=== PATIENT | male | born 1940 | race Caucasian/White ===

== ENCOUNTER 2020-01-31 10:45 | Inpatient (IN) | payer MEDICARE, OTHER, SELFPAY ==
[2020-01-31] VITALS (38 sets, daily range): BP systolic 110–162; BP diastolic 54–89; PULSE 55–100; RESP 13–26; TEMP 36.4–37.6; O2SAT 88–100; BMI 27.1
--- NOTE | 2020-01-31 11:27 | XRR_ITS ---
PROCEDURE INFORMATION: Exam: XR Chest, 1 View Exam date and time: 01/31/2020 12:39 PM Age: 79 years old Clinical indication: Dyspnea and fever; Additional info: Covid TECHNIQUE: Imaging protocol: XR of the chest Views: 1 view. COMPARISON: No relevant prior studies available. FINDINGS: Lungs: Unremarkable. No consolidation. Pleural space: Unremarkable. No pleural effusion. No pneumothorax. Heart/Mediastinum: Clips and sutures are present from cardiovascular surgery. Heart may be normal for the AP projection. Bones/joints: Unremarkable. XR/XR chest 1V portable [id number] IMPRESSION: No acute abnormalities are seen in the chest.
--- NOTE | 2020-01-31 11:28 | ECG_ITS ---
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 Measurements Intervals [place] Rate: 85 P: 55 RI: 205 QRS: 44 QRSD: 108 T: 58 QT: 377 QTc: 449 Interpretive Statements SINUS RHYTHM LEFT ATRIAL ENLARGEMENT [-0.15mV P WAVE IN V1/V2] MODERATE T-WAVE ABNORMALITY, CONSIDER ANTERIOR ISCHEMIA [-0.1+ mV T WAVE IN V3/V4] No previous ECG available for comparison Electronically Signed On 01-31-2020 17:54:17 CDT by Dorinda Velasquez M.D. [id number]
--- NOTE | 2020-01-31 11:35 | ED_ITS ---
HPI - SOB/Dyspnea General: Chief Complaint: Shortness of Breath/Dyspnea Stated Complaint: CP; COVID+, [facility] TESTED Time Seen by Provider: 01/31/20 11:16 History of Present Illness: HPI Narrative: This patient is a 79-year-old male presenting today with known COVID. He was tested on Sunday at [facility]. He reports that he had symptoms a few days before that. He does not know when or how he was exposed. His symptoms are fever, myalgias, cough, shortness of breath. Today his pulse ox was 85% and so his daughter made him come to the hospital. He reports a history of open heart surgery 10 years ago. Other than that he does not tell me about any other medical history. I suspect he has more and will look into his past medical records. Associated symptoms: Reports fever(s); Deny abdominal pain, chest pain, nausea or vomiting Review of Systems General: Reports: 10 or more systems reviewed and unremarkable except in HPI and below Const: Reports: fever(s), chills, fatigue and malaise Eyes: Denies: change in vision ENMT: Denies: odynophagia Card: Denies: chest pain or swelling of feet/ankles Resp: Reports: dyspnea and non-productive cough; Denies: productive cough GI: Denies: abdominal pain, nausea or vomiting : Denies: flank pain Musc: Denies: neck pain or back pain Skin/Breast: Denies: rash Neuro: Denies: headache(s), numbness in extremities or weakness in extremities Raghavendra/Lymph: Denies: easy bruising or easy bleeding PFSH ED PFSH: Medical History (Updated 01/31/20 @ 17:39 by Deloris Oquendo MD) Anxiety Dementia Hyperlipidemia JESSICA (obstructive sleep apnea) -on CPAP Trigeminal neuralgia Surgical History 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 Family History Other Cancer Social History (Updated 01/31/20 @ 17:04 by Deloris Oquendo MD) Smoking and tobacco status: former smoker Quit status (tobacco): has quit using tobacco Former quit date comment: 30 yrs ago Alcohol intake: never Substance/Drug Use: never Household members: spouse Housing: House Marital status: Current occupational status: retired Physical Exam Const: COMMON NORMALS: no acute distress, patient oriented x3, no limitations and alert GENERAL APPEARANCE: cooperative and comfortable HENMT: HEAD & SCALP: normal to inspection FACE & SINUS: normal facial exam Eye: GENERAL EYE: appearance normal, both eyes and all related structures Neck/C-Spine: COMMON NORMALS: supple, no meningeal signs and no JVD Chest: COMMONS NORMALS: normal inspection of the chest Resp: COMMON NORMALS: normal respiratory effort, No use of accessory muscles and clear to auscultation bilaterally AUSCULTATION: clear to auscultation bilaterally Cardio: COMMON NORMALS: no JVD, regular rate, regular rhythm and No murmurs present (Cardio) RATE: regular rate RHYTHM: regular rhythm GI: COMMON NORMALS: Normal to inspection, nondistended, normoactive bowel sounds present, Soft to palpation and non-tender INSPECTION: Yes normal to inspection AUSCULTATION: Yes normoactive bowel sounds PALPATION: Yes Soft to palpation Back/Pelvis: COMMON NORMALS: thoracic and lumbar spine normal to inspection Extremity: COMMON NORMALS: normal to inspection Neuro: COMMON NORMALS: patient oriented x3, moves all extremities, no focal motor deficits and no sensory deficits noted SENSORIUM/ORIENTATION: Yes alert MENINGEAL SIGNS: Yes no meningeal signs Psych: COMMON NORMALS: mental status grossly normal, cooperative and normal affect Skin: COMMON NORMALS: no rashes or lesions noted and turgor normal GENERAL SKIN EXAM: no rashes or lesions noted and turgor normal Course ED course: Mr. Arteaga had borderline saturations while in the department. For the most part his oxygen remained around 90-91 but he did have documented saturations in the 80s as well. He was put on a couple liters of oxygen and his sats remained in the mid to high 90s. I spoke with his daughter who was very concerned and hope that he would be admitted for remdesivir treatment. I think given his low oxygen sats and the fact that he is only on day 6 of illness and likely will have some worsening, admission is reasonable. I did start Lovenox, Decadron, remdesivir in the ER. We were fortunate to have a viral ICU bed open here this morning and he was admitted to our hospital. Vital Signs: Vital signs: Vital Signs Temperature 98.7 F 01/31/20 19:45 Pulse Rate 74 01/31/20 20:00 Respiratory Rate 14 01/31/20 20:00 Blood Pressure 127/67 01/31/20 20:00 Pulse Oximetry 92 01/31/20 20:00 MDM - SOB/Dyspnea Lab Data: Labs: Lab Results 01/31/20 01/31/20 01/31/20 Range/Units 11:30 11:30 11:30 WBC 11.3 H (4.0-10.0) 10^3/ uL RBC 4.74 (4.1-5.3) 10^6/u L Hgb 15.3 (11.7-16.6) g/dL Hct 44.5 (42.0-52.0) % MCV 93.9 (80-94) fL MCH 32.3 (28.0-34.0) pg MCHC 34.4 (30.0-36.0) g/dL RDW 11.8 L (12.1-15.1) % Plt Count 165 (130-400) 10^3/c mm MPV 9.3 (7.4-10.4) fL Neut % (Auto) 92.6 % Lymph % (Auto) 2.0 % Tripp % (Auto) 4.9 % Eos % (Auto) 0.0 % Baso % (Auto) 0.2 % Neut # (Auto) 10.43 H (1.8-7.7) 10^3/u L Lymph # (Auto) 0.2 L (0.8-4.8) 10^3/u L Tripp # (Auto) 0.6 (0.2-0.9) 10^3/u L Eos # (Auto) 0.0 (0.0-0.8) 10^3/u L Baso # (Auto) 0.0 (0.0-0.1) 10^3/u L Nucleated RBC % (a uto) 0 % Nucleated RBCs # 0.0 /100WBC PT 14.10 (12.1-14.9) SECO NDS INR 1.05 (0.8-1.2) Fibrinogen 704 H (174-498) mg/dL D-Dimer 1.04 H (0-0.59) ug/mIFE U Sodium 129 L (136-145) mmol/L Potassium 4.0 (3.5-5.1) mmol/L Chloride 96 L (98-107) mmol/L Carbon Dioxide 19 L (22-29) mmol/L Anion Gap 18.0 (5-19) BUN 24 H (8-23) mg/dL Creatinine 0.8 (0.7-1.2) mg/dL GFR Calculation Not Reportable Glucose 134 H (65-115) mg/dL Calculated Osmolal ity 274 L (285-295) mOsm/k g Lactic Acid (0.5-2.2) mmol/L Calcium 8.9 (8.5-10.5) mg/dL Magnesium 1.9 (1.7-2.3) mg/dL Total Bilirubin 1.0 (0.15-1.2) mg/dL AST 26 (0-40) U/L ALT 17 (0-41) U/L Alkaline Phosphata se 95 (40-130) IU/L Troponin T Baselin e (0-15) ng/L Troponin T 120 Min myles (0-15) ng/L Delta Troponin T (0-10) ABS# C-Reactive Protein 75.1 H (0.0-4.9) mg/L NT-Pro-B Natriuret Pep 362 (0-450) pg/mL Total Protein 7.0 (6.6-8.7) g/dL Albumin 4.0 (3.5-5.2) g/dL Globulin 3.0 (1.3-4.6) g/dL Procalcitonin 0.18 (0-0.5) ng/mL 01/31/20 01/31/20 01/31/20 Range/Units 11:30 11:30 13:36 WBC (4.0-10.0) 10^3/ uL RBC (4.1-5.3) 10^6/u L Hgb (11.7-16.6) g/dL Hct (42.0-52.0) % MCV (80-94) fL MCH (28.0-34.0) pg MCHC (30.0-36.0) g/dL RDW (12.1-15.1) % Plt Count (130-400) 10^3/c mm MPV (7.4-10.4) fL Neut % (Auto) % Lymph % (Auto) % Tripp % (Auto) % Eos % (Auto) % Baso % (Auto) % Neut # (Auto) (1.8-7.7) 10^3/u L Lymph # (Auto) (0.8-4.8) 10^3/u L Tripp # (Auto) (0.2-0.9) 10^3/u L Eos # (Auto) (0.0-0.8) 10^3/u L Baso # (Auto) (0.0-0.1) 10^3/u L Nucleated RBC % (a uto) % Nucleated RBCs # /100WBC PT (12.1-14.9) SECO NDS INR (0.8-1.2) Fibrinogen (174-498) mg/dL D-Dimer (0-0.59) ug/mIFE U Sodium (136-145) mmol/L Potassium (3.5-5.1) mmol/L Chloride (98-107) mmol/L Carbon Dioxide (22-29) mmol/L Anion Gap (5-19) BUN (8-23) mg/dL Creatinine (0.7-1.2) mg/dL GFR Calculation Glucose (65-115) mg/dL Calculated Osmolal ity (285-295) mOsm/k g Lactic Acid 1.1 (0.5-2.2) mmol/L Calcium (8.5-10.5) mg/dL Magnesium (1.7-2.3) mg/dL Total Bilirubin (0.15-1.2) mg/dL AST (0-40) U/L ALT (0-41) U/L Alkaline Phosphata se (40-130) IU/L Troponin T Baselin e 22 H (0-15) ng/L Troponin T 120 Min myles 18.46 H (0-15) ng/L Delta Troponin T -3.54 L (0-10) ABS# C-Reactive Protein (0.0-4.9) mg/L NT-Pro-B Natriuret Pep (0-450) pg/mL Total Protein (6.6-8.7) g/dL Albumin (3.5-5.2) g/dL Globulin (1.3-4.6) g/dL Procalcitonin (0-0.5) ng/mL Discharge Plan Discharge Patient Disposition: Admitted As Inpatient Admit Provider: Deloris Oquendo Clinical Impression: COVID-19 Condition: Stable Discharge Date/Time: 01/31/20 16:08 Coding Level of Care Code ED Ball Winder for Chg Fwd Exam Comprehensive
[2020-01-31 11:41] LABS: Basophils % 0.2 %; Hematocrit 44.5 % (42.0-52.0); Hemoglobin 15.3 g/dL (11.7-16.6); Lymphocytes # 0.2 10^3/uL (0.8-4.8); Mean Corpuscular HGB Conc 34.4 g/dL (30.0-36.0); Mean Corpuscular Hemoglobin 32.3 pg (28.0-34.0); Mean Corpuscular Volume 93.9 fL (80-94); Mean Platelet Volume 9.3 fL (7.4-10.4); Monocytes # 0.6 10^3/uL (0.2-0.9); Monocytes % 4.9 %; Neutrophils # 10.43 10^3/uL (1.8-7.7); Neutrophils % 92.6 %; Nucleated Red Blood Cells % 0 %; Platelet Count 165 10^3/cmm (130-400); Red Blood Count 4.74 10^6/uL (4.1-5.3); Red Cell Distribution Width 11.8 % (12.1-15.1); White Blood Count 11.3 10^3/uL (4.0-10.0)
[2020-01-31 11:54] LABS: INR 1.05 (0.8-1.2)
[2020-01-31 11:55] LABS: Fibrinogen 704 mg/dL (174-498)
[2020-01-31 11:58] LABS: D Dimer 1.04 ug/mIFEU (0-0.59)
[2020-01-31 12:00] LABS: Troponin(5th) Baseline 22 ng/L (0-15)
[2020-01-31] MEDS: dexamethasone 4 mg/mL INJ 6 MG IVP (12:05)
[2020-01-31 12:07] LABS: NT Pro B Type Natriuretic Pept 362 pg/mL (0-450); Procalcitonin 0.18 ng/mL (0-0.5)
[2020-01-31 12:19] LABS: Alanine Aminotransferase 17 U/L (0-41); Alkaline Phosphatase 95 IU/L (40-130); Aspartate Amino Transferase 26 U/L (0-40); Blood Urea Nitrogen 24 mg/dL (8-23); C Reactive Protein 75.1 mg/L (0.0-4.9); Calcium 8.9 mg/dL (8.5-10.5); Carbon Dioxide 19 mmol/L (22-29); Chloride 96 mmol/L (98-107); Glucose 134 mg/dL (65-115); Magnesium 1.9 mg/dL (1.7-2.3); Osmolality Calculated 274 mOsm/kg (285-295); Sodium 129 mmol/L (136-145)
--- NOTE | 2020-01-31 13:28 | ECG_ITS ---
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 Measurements Intervals [place] Rate: 60 P: 64 [place]: 212 QRS: 66 QRSD: 107 T: 82 QT: 453 QTc: 455 Interpretive Statements SINUS RHYTHM WITH FIRST DEGREE AV BLOCK POSSIBLE LEFT ATRIAL ENLARGEMENT [-0.1mV P WAVE IN V1/V2] Compared to ECG 01/31/2020 11:33:08 First degree AV block now present T-wave abnormality no longer present Possible ischemia no longer present Electronically Signed On 01-31-2020 18:02:47 CDT by Dorinda Velasquez M.D. [id number]
[2020-01-31 14:07] LABS: Troponin 5 2HR 18.46 ng/L (0-15)
[2020-01-31 14:12] LABS: Troponin 5 2HR Delta -3.54 ABS# (0-10)
[2020-01-31] MEDS: enoxaparin 100 mg/mL Syringe 90 MG SUBCUT (14:45)
[2020-01-31 15:02] LABS: Lactic Sepsis W/Reflex 1.1 mmol/L (0.5-2.2)
[2020-01-31 15:17] LABS: SARS Covid-2 Antigen Positive (Negative)
--- NOTE | 2020-01-31 17:00 | P.HP_ITS ---
Providers/Chief Complaint Admitting Physician: Deloris Oquendo MD Primary Care Provider: Dr. Jonas Lowry, [place], [place] Chief Complaint: CP; COVID+, [facility] TESTED History of Present Illness Wilver Arteaga is a 79 year old male with PMHx noted below presents accompanied by his daughter to the ER due to worsening respiratory symptoms. He reports having had non-productive cough, shortness of breath, fever, chills, malaise, some chest discomfort with deep breathing, diminished appetite and generalized weakness for several days. Was tested for COVID-19 at [facility] earlier this week, results currently unavailable so tested again in the ER, rapid test is positive. He is not oxygen dependent at baseline and is currently requiring 2 to 3 L nasal cannula. Due to his symptoms his who has a history of lung cancer has moved out of the house to a motel to quarantine to avoid transmission. His daughter had moved to the house to assist him and actually brought him to the hospital today due to worsening symptoms. He is unsure where he got exposed to the virus as he is primarily been at home though mentions that his niece tested positive several weeks ago and had quarantined for approximately 2 weeks. He recently moved back to the [facility] from [place] has just transitioned his care to Dr. Lowry in [place], [place]. He reports that he does use a CPAP at night and tries to exercise daily, seems to be quite independent and ambulates independently as well. However with the onset and progression of his symptoms, not been as energetic as he typically is. Work-up in the ER shows leukocytosis with a white count of 11.3, fibrinogen of 704, d-dimer 1.04, sodium of 129, mildly elevated troponins with negative delta, CRP of 75.1, procalcitonin of 0.18. Chest x-ray is reported as unremarkable. He has received his first dose of remdesevir and dexamethasone. He is able to provide his own history and is very pleasant during my encounter with him in the viral ICU. Due to need for continued steroids, antiviral treatment and supplemental oxygen support in light of COVID-19 infection, he will be admitted to the hospital. He prefers to update his family himself. Review of Systems Const: Reports: fever(s), chills, body aches, change in appetite (decreased appetite) and fatigue Eyes: Denies: change in vision ENMT: Reports: dry mouth Card: Denies: chest pain, swelling of feet/ankles or lightheadedness Resp: Reports: dyspnea and non-productive cough GI: Reports: early satiety; Denies: abdominal pain, nausea, vomiting, hematemesis or hematochezia : Denies: dysuria or hematuria Musc: Denies: back pain Skin/Breast: Denies: rash Neuro: Reports: weakness in extremities; Denies: numbness in extremities Psych: Denies: anxiety Medications/Allergies Home Medications Medication Instructions Recorded Confirmed Last Taken Type alprazolam 0.5 mg PO BID 01/31/20 01/31/20 01/30/20 22:00 History atorvastatin 20 mg PO DAILY 01/31/20 01/31/20 01/31/20 History clopidogrel 75 mg PO DAILY 01/31/20 01/31/20 01/31/20 07:00 History donepezil 10 mg PO DAILY 01/31/20 01/31/20 01/31/20 07:00 History gabapentin 400 mg PO TID 01/31/20 01/31/20 01/31/20 07:00 History loratadine 10 mg PO DAILY 01/31/20 01/31/20 01/31/20 08:00 History memantine 10 mg PO BID 01/31/20 01/31/20 01/31/20 07:00 History prednisone See Rx Instructions .ROUTE .COMPLEX 01/31/20 01/31/20 Unknown History trazodone 50 mg PO BEDTIME 01/31/20 01/31/20 01/30/20 History Allergies Allergy/AdvReac Type Severity Reaction Status Date / Time adhesive Allergy ALGY-Rash Verified 01/31/20 11:08 PFSH Acute PFSH: Medical History (Updated 01/31/20 @ 17:39 by Deloris Oquendo MD) Anxiety Dementia Hyperlipidemia JESSICA (obstructive sleep apnea) -on CPAP Trigeminal neuralgia Surgical History 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 Family History Other Cancer Social History (Updated 01/31/20 @ 17:04 by Deloris Oquendo MD) Smoking and tobacco status: former smoker Quit status (tobacco): has quit using tobacco Former quit date comment: 30 yrs ago Alcohol intake: never Substance/Drug Use: never Household members: spouse Housing: House Marital status: Current occupational status: retired Vitals/I&O/Wt Last Vital Signs Temp 98.0 F 01/31/20 11:40 Pulse 62 01/31/20 16:07 Resp 14 01/31/20 16:07 BP 114/66 01/31/20 16:07 Pulse Ox 95 01/31/20 16:07 01/31/20 01/31/20 01/31/20 06:59 14:59 22:59 Intake Total 100 / 100 Balance 100 / 100 Weight last 48 hrs Weight 88.451 kg Physical Exam Const: COMMON NORMALS: no acute distress, patient oriented x3 and alert GENERAL APPEARANCE: cooperative and comfortable ORIENTATION/CONSCIOUSNESS: Yes awake OTHER: -Appears appropriate for age, very pleasant HENMT: COMMON NORMALS: normocephalic, atraumatic and moist oral mucous membranes HEAD & SCALP: normocephalic and atraumatic GENERAL EAR: hearing grossly impaired Laterality: bilateral Eye: COMMON NORMALS: Equal, round and reactive pupils present, EOMs intact bilaterally and conjunctivae normal CONJUNCTIVA: Yes conjunctivae normal PUPIL: Yes Equal, round and reactive pupils present Neck/C-Spine: COMMON NORMALS: full ROM GENERAL: Yes normal visual inspection and Yes trachea midline Resp: COMMON NORMALS: normal respiratory effort, No retractions and No use of accessory muscles EFFORT & INSPECTION: Yes able to speak in complete sentences, Yes symmetric chest movement and No tachypneic AUSCULTATION: diminished lung sounds OTHER: -on 2 L NC Cardio: COMMON NORMALS: regular rate, regular rhythm, S1 normal heart sound present, S2 normal heart sound present and No murmurs present (Cardio) RATE: regular rate RHYTHM: regular rhythm HEART SOUNDS: S1 normal heart sound present and S2 normal heart sound present GI: COMMON NORMALS: Normal to inspection, nondistended, normoactive bowel sounds present, Soft to palpation and non-tender PALPATION: Yes Soft to palpation Extremity: COMMON NORMALS: normal to inspection, full ROM and no clubbing, cyanosis or edema; negative for no pedal edema Neuro: COMMON NORMALS: patient oriented x3, moves all extremities, no focal motor deficits, no sensory deficits noted and gait normal Psych: COMMON NORMALS: mental status grossly normal, Normal thought process present, cooperative, normal affect and speech normal SPEECH: Yes normal speech THOUGHT PROCESS: Normal thought process present Skin: COMMON NORMALS: no rashes or lesions noted, no jaundice, no petechiae a nd no mottling GENERAL SKIN EXAM: no rashes or lesions noted Data : 01/31/20 11:30 01/31/20 11:30 A&P Assessment and plan (1) COVID-19: -Patient became symptomatic several days ago and was tested at [facility], results of that test are currently unavailable so repeat rapid testing do ne here, + -Currently requiring supplemental oxygen so has been started on remdesevir -Had just been prescribed tapering dose of oral steroids, will hold this and treat with dexamethasone -Isolation precautions -Close monitoring of respiratory status, vital signs -Telemetry monitoring -Trend inflammatory markers -Imaging noted, reported as unremarkable -add zinc, vitamin C, inhaler treatments, antitussives PRN, IS, pulmonary toilet -will hold off on initiation of antibiotic treatment given normal pro- calcitonin, no evidence of infiltrates or consolidation on imaging Status: Acute (2) Trigeminal neuralgia: -resume gabapentin Status: Chronic (3) Hyperlipidemia: -resume statin Status: Chronic Qualifiers: Hyperlipidemia type: unspecified Qualified Code(s): E78.5 - Hyperlipidemia, unspecified (4) Dementia: -resume meds -fall precautions, re-orient as needed Status: Chronic Qualifiers: Dementia type: unspecified type Dementia behavioral disturbance: withou t behavioral disturbance Qualified Code(s): F03.90 - Unspecified dementia without behavioral disturbance (5) Anxiety: -resume anxiolytics Status: Chronic Additional A&P Information -JESSICA: on CPAP qhs -cardiac diet as tolerated -GI ppx with PPI -DVT ppx with Lovenox -Dispo: home -Code status: FULL code -[facility] Medical Necessity Statement*: Wilver Arteaga's hospital stay will require greater than 2 midnights for management of COVID-19 infection, currently requiring supplemental oxygen support, close monitoring of respiratory status, initiation of IV steroids and antiviral treatment. Time Spent in Patient Care: Greater than 35 minutes (>than 50% of time spent in counselling and/or direct pt care on unit) . Coding Level of Care Code Acute Court Clerk for Chg Fwd Diagnoses COVID-19 Trigeminal neuralgia G50.0 Hyperlipidemia E78.5 Hyperlipidemia type: unspecified Dementia F03.90 Dementia type: unspecified type Dementia behavioral disturbance: without behavioral disturbance Anxiety F41.9
--- NOTE | 2020-01-31 17:28 | ECG_ITS ---
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 Measurements Intervals [place] Rate: 69 P: 53 [place]: 239 QRS: 66 QRSD: 104 T: 78 QT: 421 QTc: 454 Interpretive Statements SINUS RHYTHM WITH FIRST DEGREE AV BLOCK LEFT ATRIAL ENLARGEMENT [-0.15mV P WAVE IN V1/V2] Compared to ECG 01/31/2020 16:04:18 No significant changes Electronically Signed On 02-01-2020 18:37:57 CDT by Dorinda Velasquez M.D. [id number]
[2020-01-31] MEDS: gabapentin 400 mg Capsule PO ×2 (18:46→21:23)
[2020-01-31] MEDS: ascorbic acid 500 mg Tablet PO (18:46)
--- NOTE | 2020-01-31 19:16 | PC.NURSE ---
Pt arrives to VICU from Ed. Pt alert and oriented. Pt pleasant. Pt O2 sats in upper 90's on 3 lpm/NC. Patent IV noted in left Forearm. New IV started in right AC. blood cultures, troponins drawn. MRSA and flu swabs done. Lovenox 40mg held due to pt receiving 90 mg after 1400 in ED. Awaiting memenda from pharmacy. Pt prefers to stand to use urinal. Report given to DENEEN Rush. SCD still need to be applied.
[2020-01-31 19:19] LABS: Troponin 5 6HR 14.43 ng/L (0-15); Troponin 5 6HR Delta -7.57 ng/L (0-12)
[2020-01-31 20:10] LABS: Influenza A by IFA Negative (Negative); Influenza B by IFA Negative (Negative)
[2020-01-31] MEDS: memantine 5 mg tablet 10 MG PO (21:22)
[2020-01-31] MEDS: trazodone 50 mg Tablet PO (21:23)
[2020-02-01] VITALS (34 sets, daily range): BP systolic 112–162; BP diastolic 58–81; PULSE 50–93; RESP 13–25; TEMP 36.6–37.8; O2SAT 89–94
[2020-02-01 06:24] LABS: Basophils % 0.2 %; Hematocrit 44.4 % (42.0-52.0); Hemoglobin 14.7 g/dL (11.7-16.6); Lymphocytes # 0.3 10^3/uL (0.8-4.8); Lymphocytes % 2.5 %; Mean Corpuscular HGB Conc 33.1 g/dL (30.0-36.0); Mean Corpuscular Hemoglobin 31.8 pg (28.0-34.0); Mean Corpuscular Volume 96.1 fL (80-94); Monocytes # 0.7 10^3/uL (0.2-0.9); Monocytes % 6.5 %; Neutrophils # 10.32 10^3/uL (1.8-7.7); Neutrophils % 90.4 %; Nucleated Red Blood Cells % 0 %; Platelet Count 186 10^3/cmm (130-400); Red Blood Count 4.62 10^6/uL (4.1-5.3); Red Cell Distribution Width 11.8 % (12.1-15.1); White Blood Count 11.4 10^3/uL (4.0-10.0)
[2020-02-01 06:44] LABS: Blood Urea Nitrogen 23 mg/dL (8-23); C Reactive Protein 93.4 mg/L (0.0-4.9); Calcium 8.6 mg/dL (8.5-10.5); Carbon Dioxide 22 mmol/L (22-29); Chloride 101 mmol/L (98-107); Creatine Phosphokinase 167 U/L (39-308); Glucose 110 mg/dL (65-115); Magnesium 2.1 mg/dL (1.7-2.3); Osmolality Calculated 282 mOsm/kg (285-295); Sodium 134 mmol/L (136-145)
[2020-02-01 07:16] LABS: Anion Gap 15.4 (5-19); Ferritin 607 ng/mL (30-400); NT Pro B Type Natriuretic Pept 677 pg/mL (0-450); Potassium 4.4 mmol/L (3.5-5.1)
[2020-02-01 07:36] LABS: Fibrinogen 618 mg/dL (174-498)
[2020-02-01 07:40] LABS: D Dimer 0.52 ug/mIFEU (0-0.59)
[2020-02-01 08:02] LABS: Lactate Dehydrogenase 356 U/L (135-225)
[2020-02-01] MEDS: ascorbic acid 500 mg Tablet PO ×2 (09:27→18:17)
[2020-02-01] MEDS: zinc gluconate 50 mg Tablet PO (09:27)
[2020-02-01] MEDS: atorvastatin 40 mg Tablet 20 MG PO (09:28)
[2020-02-01] MEDS: donepezil 5 MG Tablet 10 MG PO (09:28)
[2020-02-01] MEDS: memantine 5 mg tablet 10 MG PO ×2 (09:28→18:17)
[2020-02-01] MEDS: loratadine 10 mg Tablet PO (09:28)
[2020-02-01] MEDS: pantoprazole DR 40 mg Tablet PO (09:28)
[2020-02-01] MEDS: gabapentin 400 mg Capsule PO ×3 (09:28→21:15)
[2020-02-01] MEDS: clopidogrel 75 mg Tablet PO (09:29)
[2020-02-01] MEDS: dexamethasone 4 mg/mL INJ 6 MG IVP (09:29)
--- NOTE | 2020-02-01 11:48 | PM.PN ---
Subjective Subjective: Interval history: Had a low-grade temperature of 100 F earlier this morning, hemodynamically stable, increasing oxygen requirement overnight, currently on 5 L nasal cannula. Had 575 mL urine output overnight. Stable leukocytosis, down-trending inflammatory markers though noted increasing BNP and CRP. On day 2 of Remdesevir. Sitting up in bed, reports poor sleep overnight, though does feel somewhat better today. Medications: Reviewed: Yes Medication Review Details: Active Medications Generic Name Dose Route Start Last Admin Trade Name Freq PRN Reason Stop Dose Admin Acetaminophen 650 mg 01/31/20 17:29 Tylenol PO Q6H PRN Mild/Mod Pain Or Temp >/= 101 Albuterol Sulfate 2 puff 01/31/20 17:22 Ventolin INHALATION Q4H.RESPIRATORY P RN SHORTNESS OF VIVIEN TH Alprazolam 0.5 mg 01/31/20 18:34 Xanax PO BID PRN ANXIETY Ascorbic Acid 500 mg 01/31/20 18:00 02/01/20 09:27 Vitamin C PO 500 mg BID RAND Administration Atorvastatin Calci um 20 mg 02/01/20 09:00 02/01/20 09:28 Lipitor PO 20 mg DAILY RAND Administration Benzonatate 100 mg 01/31/20 17:33 Tessalon Pearls PO TID PRN COUGH Clopidogrel Bisulf ate 75 mg 02/01/20 09:00 02/01/20 09:29 Plavix PO 75 mg DAILY RAND Administration Dexamethasone 6 mg 02/01/20 09:00 02/01/20 09:29 Decadron IVP 6 mg Q24H RAND Administration Donepezil HCl 10 mg 02/01/20 09:00 02/01/20 09:28 Aricept PO 10 mg DAILY RAND Administration Enoxaparin Sodium 40 mg 01/31/20 18:00 01/31/20 18:52 Lovenox SUBCUT Not Given Q24H RAND Gabapentin 400 mg 01/31/20 17:25 02/01/20 09:28 Neurontin PO 400 mg TID RAND Administration Guaifenesin 200 mg 01/31/20 17:33 Robitussin Oral Liq PO Q4H PRN COUGH AND CONGEST ION remdesivir (EUA) 1 00 mg/ 100 mls @ 100 mls /hr 02/01/20 16:00 Sodium Chloride IV 10/14/20 16:59 Q24H RAND Loratadine 10 mg 02/01/20 09:00 02/01/20 09:28 Claritin PO 10 mg DAILY RAND Administration Memantine 10 mg 01/31/20 18:00 02/01/20 09:28 Namenda PO 10 mg BID RAND Administration Ondansetron HCl 4 mg 01/31/20 17:29 Zofran IVP Q6H PRN vomiting, or N/V if npo Pantoprazole Sodiu m 40 mg 02/01/20 09:00 02/01/20 09:28 Protonix PO 40 mg DAILY RAND Administration Trazodone HCl 50 mg 01/31/20 21:00 01/31/20 21:23 Desyrel PO 50 mg BEDTIME RAND Administration Zinc Gluconate 50 mg 02/01/20 09:00 02/01/20 09:27 Zinc Gluconate PO 50 mg DAILY RAND Administration adhesive Allergy (Verified 01/31/20 11:08) ALGY-Rash Vitals/I&O/Wt Last Vital Signs Temp 99 F 02/01/20 08:00 Pulse 76 02/01/20 08:44 Resp 20 H 02/01/20 08:44 BP 121/62 02/01/20 08:00 Pulse Ox 91 02/01/20 08:44 01/31/20 02/01/20 02/01/20 22:59 06:59 14:59 Intake Total 300 / 300 250 / 550 Output Total 1100 / 1100 325 / 1425 Balance -800 / -800 -75 / -875 Weight last 48 hrs Weight 88.451 kg Physical Exam Const: COMMON NORMALS: no acute distress, patient oriented x3 and alert GENERAL APPEARANCE: cooperative and comfortable ORIENTATION/CONSCIOUSNESS: Yes awake OTHER: -Appears appropriate for age, very pleasant HENMT: COMMON NORMALS: normocephalic, atraumatic and moist oral mucous membranes HEAD & SCALP: normocephalic and atraumatic GENERAL EAR: hearing grossly impaired Laterality: bilateral Eye: COMMON NORMALS: Equal, round and reactive pupils present, EOMs intact bilaterally and conjunctivae normal CONJUNCTIVA: Yes conjunctivae normal PUPIL: Yes Equal, round and reactive pupils present Neck/C-Spine: COMMON NORMALS: full ROM GENERAL: Yes normal visual inspection and Yes trachea midline Resp: COMMON NORMALS: normal respiratory effort, No retractions and No use of accessory muscles EFFORT & INSPECTION: Yes able to speak in complete sentences, Yes symmetric chest movement and No tachypneic AUSCULTATION: diminished lung sounds OTHER: -on 5 L NC Cardio: COMMON NORMALS: regular rate, regular rhythm, S1 normal heart sound present, S2 normal heart sound present and No murmurs present (Cardio) RATE: regular rate RHYTHM: regular rhythm HEART SOUNDS: S1 normal heart sound present and S2 normal heart sound present GI: COMMON NORMALS: Normal to inspection, nondistended, normoactive bowel sounds present, Soft to palpation and non-tender PALPATION: Yes Soft to palpation Extremity: COMMON NORMALS: normal to inspection, full ROM and no clubbing, cyanosis or edema; negative for no pedal edema Neuro: COMMON NORMALS: patient oriented x3, moves all extremities, no focal motor deficits, no sensory deficits noted and gait normal SENSORIUM/ORIENTATION: Yes alert Psych: COMMON NORMALS: mental status grossly normal, Normal thought process present, cooperative, normal affect and speech normal SPEECH: Yes normal speech THOUGHT PROCESS: Normal thought process present Skin: COMMON NORMALS: no rashes or lesions noted, no jaundice, no petechiae and no mottling GENERAL SKIN EXAM: no rashes or lesions noted Data : 02/01/20 04:30 02/01/20 04:30 Micro: Microbiology 01/31/20 18:00 Blood Culture - Preliminary Blood SPECIMEN COLLECTED 01/31/20 18:15 Blood Culture - Preliminary Blood SPECIMEN COLLECTED A&P Assessment and plan (1) COVID-19: -Patient became symptomatic several days ago and was tested at [facility], results of that test are currently unavailable so repeat rapid testing done here, + -Currently requiring supplemental oxygen, on day 2/5 of remdesevir -continue dexamethasone -Isolation precautions -Close monitoring of respiratory status, vital signs -Telemetry monitoring -continue to trend inflammatory markers -Imaging noted, reported as unremarkable -continue zinc, vitamin C, inhaler treatments, antitussives PRN, IS, pulmonary toilet -will hold off on initiation of antibiotic treatment given normal pro-calcitonin, no evidence of infiltrates or consolidation on imaging Status: Acute (2) Trigeminal neuralgia: -continue gabapentin Status: Chronic (3) Hyperlipidemia: -continue statin Status: Chronic Qualifiers: Hyperlipidemia type: unspecified Qualified Code(s): E78.5 - Hyperlipidemia, unspecified (4) Dementia: -continue meds -fall precautions, re-orient as needed Status: Chronic Qualifiers: Dementia behavioral disturbance: without behavioral disturbance Dementia type: unspecified type Qualified Code(s): F03.90 - Unspecified dementia without behavioral disturbance (5) Anxiety: -continue anxiolytics Status: Chronic Additional A&P Information -JESSICA: on CPAP qhs -cardiac diet as tolerated -GI ppx with PPI -DVT ppx with Lovenox -Dispo: home -Code status: FULL code Attestations Medical Necessity Statement*: Patient requires hospitalization for continued management of COVID-19 infection, increasing oxygen requirement, on IV steroids, antiviral treatment. Time Spent in Patient Care: 16 - 35 minutes (>than 50% of time spent in counselling and/or direct pt care on unit). Coding Level of Care Code Acute Primary Health Care Nurse for [facility] Fwd Exam Comprehensive Diagnoses COVID-19 Trigeminal neuralgia G50.0 Hyperlipidemia E78.5 Hyperlipidemia type: unspecified Dementia F03.90 Dementia behavioral disturbance: without behavioral disturbance Dementia type: unspecified type Anxiety F41.9
[2020-02-01] MEDS: enoxaparin 40 mg/0.4 mL Syringe SUBCUT (18:17)
--- NOTE | 2020-02-01 19:20 | PC.NURSE ---
Shift summary: Pt alert and oriented. Pt very pleasant. Pt rested in bed, getting out of bed to use toilet. O2 sats down to 87% while in bathroom, they recovered within 10 minutes after he was back to bed. He received 1 of 4 doses or remdesiver today. He has 2 #20 IV bilat, both with good blood return and flushes easily. Pt ate most of his meals today.1150 urine output. Bm today. family brought in his home CPAP.
[2020-02-01] MEDS: trazodone 50 mg Tablet PO (21:15)
[2020-02-01] MEDS: ALPRAZolam 0.5 mg Tablet PO (21:15)
[2020-02-02] VITALS (18 sets, daily range): BP systolic 99–141; BP diastolic 43–76; PULSE 49–72; RESP 14–22; TEMP 36.8–37.7; O2SAT 87–96; BMI 26.5
[2020-02-02 05:40] LABS: Basophils % 0.2 %; Hematocrit 44.9 % (42.0-52.0); Hemoglobin 14.9 g/dL (11.7-16.6); Lymphocytes # 0.7 10^3/uL (0.8-4.8); Lymphocytes % 6.4 %; Mean Corpuscular HGB Conc 33.2 g/dL (30.0-36.0); Mean Corpuscular Hemoglobin 32.1 pg (28.0-34.0); Mean Corpuscular Volume 96.8 fL (80-94); Mean Platelet Volume 8.9 fL (7.4-10.4); Monocytes # 0.9 10^3/uL (0.2-0.9); Monocytes % 8.8 %; Neutrophils # 8.73 10^3/uL (1.8-7.7); Nucleated Red Blood Cells % 0 %; Platelet Count 201 10^3/cmm (130-400); Red Blood Count 4.64 10^6/uL (4.1-5.3); Red Cell Distribution Width 11.9 % (12.1-15.1); White Blood Count 10.4 10^3/uL (4.0-10.0)
[2020-02-02 06:23] LABS: C Reactive Protein 51.8 mg/L (0.0-4.9)
[2020-02-02 06:28] LABS: Ferritin 763 ng/mL (30-400); NT Pro B Type Natriuretic Pept 410 pg/mL (0-450)
[2020-02-02 06:38] LABS: Lactate Dehydrogenase 307 U/L (135-225)
[2020-02-02] MEDS: atorvastatin 40 mg Tablet 20 MG PO (08:16)
[2020-02-02] MEDS: dexamethasone 4 mg/mL INJ 6 MG IVP (08:16)
[2020-02-02] MEDS: memantine 5 mg tablet 10 MG PO ×2 (08:17→17:09)
[2020-02-02] MEDS: clopidogrel 75 mg Tablet PO (08:17)
[2020-02-02] MEDS: pantoprazole DR 40 mg Tablet PO (08:17)
[2020-02-02] MEDS: loratadine 10 mg Tablet PO (08:17)
[2020-02-02] MEDS: ascorbic acid 500 mg Tablet PO ×2 (08:17→17:06)
[2020-02-02] MEDS: zinc gluconate 50 mg Tablet PO (08:17)
[2020-02-02] MEDS: gabapentin 400 mg Capsule PO ×3 (08:17→20:12)
[2020-02-02] MEDS: donepezil 5 MG Tablet 10 MG PO (08:18)
[2020-02-02 08:28] LABS: Fibrinogen 734 mg/dL (174-498)
--- NOTE | 2020-02-02 12:30 | PM.PN ---
Subjective Subjective: Interval history: Wilver reports he is feeling fine. He is required increasing oxygen amounts in the last 24 hours. Medications: Reviewed: Yes Vitals/I&O/Wt Last Vital Signs Temp 99.3 F 02/02/20 11:33 Pulse 52 L 02/02/20 11:33 Resp 18 02/02/20 11:33 BP 99/43 02/02/20 11:33 Pulse Ox 94 02/02/20 11:33 02/01/20 02/02/20 02/02/20 22:59 06:59 14:59 Intake Total 600 / 2400 100 / 2500 400 / 400 Output Total 400 / 1150 400 / 1550 750 / 750 Balance 200 / 1250 -300 / 950 -350 / -350 Weight last 48 hrs Weight 86.239 kg Physical Exam Narrative: EXAM NARRATIVE: General exam no apparent distress Cardiovascular regular rate and rhythm without murmur Lungs a few fine crackles bilaterally, dry Abdomen is soft with positive bowel sounds Extremities no cyanosis clubbing or edema Data : 02/02/20 04:35 02/01/20 04:30 Micro: Microbiology 01/31/20 18:15 Blood Culture - Preliminary Blood NEGATIVE TO DATE 01/31/20 18:00 Blood Culture - Preliminary Blood NEGATIVE TO DATE 01/31/20 18:00 MRSA Culture - Final Nose A&P Assessment and plan (1) COVID-19: Wean oxygen as tolerated. Currently on 5 L. Continue antiviral, dexamethasone Albuterol as needed MRSA PCR was negative Add doxycycline secondary to increasing oxygen requirement. Recheck inflammatory levels, pro calcitonin, chest x-ray tomorrow. Status: Acute (2) Trigeminal neuralgia: Continue Neurontin Status: Chronic (3) Hyperlipidemia: Continue statin Status: Chronic Qualifiers: Hyperlipidemia type: unspecified Qualified Code(s): E78.5 - Hyperlipidemia, unspecified (4) Dementia: Continue home meds of Aricept and Namenda Status: Chronic Qualifiers: Dementia type: unspecified type Dementia behavioral disturbance: without behavioral disturbance Qualified Code(s): F03.90 - Unspecified dementia without behavioral disturbance (5) Anxiety: Continue Xanax as needed Status: Chronic Additional A&P Information Obstructive sleep apnea. CPAP while sleeping Lovenox for DVT prophylaxis Full code Attestations Medical Necessity Statement*: Needs continued hospitalization for IV antiviral, dexamethasone secondary to Covid 19 pneumonia. Coding Level of Care Code Acute Loss Prevention Operations Manager for [facility] Fwd Diagnoses COVID-19 Trigeminal neuralgia G50.0 Hyperlipidemia E78.5 Hyperlipidemia type: unspecified Dementia F03.90 Dementia type: unspecified type Dementia behavioral disturbance: without behavioral disturbance Anxiety F41.9
--- NOTE | 2020-02-02 12:38 | XRR_ITS ---
PROCEDURE INFORMATION: Exam: XR Chest, 1 View Exam date and time: 02/02/2020 2:45 PM Age: 79 years old Clinical indication: Condition or disease; Lung condition and disease; Pneumonia; Additional info: Follow-up pneumonia TECHNIQUE: Imaging protocol: XR of the chest Views: 1 view. COMPARISON: CR (CHEST, ) 01/31/2020 12:27 PM FINDINGS: Lungs: Parenchymal density is seen in the right upper lobe consistent with pneumonia this finding is new since prior examination. Low lung volumes seen. The left lung is clear Pleural space: Unremarkable. No pleural effusion. No pneumothorax. Heart/Mediastinum: Unremarkable. No cardiomegaly. Bones/joints: Metallic sternotomy wires are in place. XR/XR chest 1V portable [id number] IMPRESSION: 1. Right upper lobe pneumonia new since prior 2. Status post sternotomy 3. Low lung volumes .
[2020-02-02] MEDS: doxycycline 100 mg Tablet PO ×2 (13:03→20:12)
[2020-02-02] MEDS: enoxaparin 40 mg/0.4 mL Syringe SUBCUT (17:06)
[2020-02-02] MEDS: trazodone 50 mg Tablet PO (20:12)
[2020-02-02] MEDS: ALPRAZolam 0.5 mg Tablet PO (21:07)
[2020-02-03] VITALS (18 sets, daily range): BP systolic 92–139; BP diastolic 48–82; PULSE 49–84; RESP 15–31; TEMP 36.4–36.9; O2SAT 87–94
[2020-02-03 04:34] LABS: D Dimer 0.66 ug/mIFEU (0-0.59)
--- NOTE | 2020-02-03 04:44 | PC.NURSE ---
PT APPEARED TO HAVE RESTED WITH EYES CLOSED. PT DENIES PAIN AT THIS TIME. PT HAS NO C/O. WILL CONTINUE TO MONITOR.
[2020-02-03 05:02] LABS: Procalcitonin 0.11 ng/mL (0-0.5)
[2020-02-03 08:52] LABS: Alanine Aminotransferase 17 U/L (0-41); Albumin Level 3.3 g/dL (3.5-5.2); Alkaline Phosphatase 84 IU/L (40-130); Anion Gap 12.3 (5-19); Aspartate Amino Transferase 23 U/L (0-40); Blood Urea Nitrogen 27 mg/dL (8-23); C Reactive Protein 30.6 mg/L (0.0-4.9); Calcium 8.9 mg/dL (8.5-10.5); Carbon Dioxide 26 mmol/L (22-29); Chloride 102 mmol/L (98-107); Globulin 3.1 g/dL (1.3-4.6); Glucose 103 mg/dL (65-115); Osmolality Calculated 287 mOsm/kg (285-295); Potassium 4.3 mmol/L (3.5-5.1); Sodium 136 mmol/L (136-145); Total Bilirubin 0.5 mg/dL (0.15-1.2); Total Protein 6.4 g/dL (6.6-8.7)
[2020-02-03] MEDS: donepezil 5 MG Tablet 10 MG PO (10:02)
[2020-02-03] MEDS: loratadine 10 mg Tablet PO (10:02)
[2020-02-03] MEDS: gabapentin 400 mg Capsule PO ×3 (10:02→20:20)
[2020-02-03] MEDS: ascorbic acid 500 mg Tablet PO ×2 (10:03→17:22)
[2020-02-03] MEDS: atorvastatin 40 mg Tablet 20 MG PO (10:03)
[2020-02-03] MEDS: clopidogrel 75 mg Tablet PO (10:04)
[2020-02-03] MEDS: zinc gluconate 50 mg Tablet PO (10:04)
[2020-02-03] MEDS: pantoprazole DR 40 mg Tablet PO (10:04)
[2020-02-03] MEDS: dexamethasone 4 mg/mL INJ 6 MG IVP (10:05)
[2020-02-03] MEDS: memantine 5 mg tablet 10 MG PO ×2 (10:05→17:22)
[2020-02-03] MEDS: sennosides-docusate Tablet 1 TAB PO (10:19)
[2020-02-03] MEDS: doxycycline 100 mg Tablet PO ×2 (12:54→20:20)
--- NOTE | 2020-02-03 14:06 | P.PN_ITS ---
Subjective Subjective: Interval history: Bill reports that he is feeling okay. No specific concerns. Required a higher amount of oxygen in the last 24 hours. Medications: Reviewed: Yes Vitals/I&O/Wt Last Vital Signs Temp 98.4 F 02/03/20 11:52 Pulse 54 L 02/03/20 08:45 Resp 18 02/03/20 08:45 BP 120/71 02/02/20 15:53 Pulse Ox 90 02/03/20 08:45 02/02/20 02/03/20 02/03/20 22:59 06:59 14:59 Intake Total 300 / 700 120 / 820 360 / 360 Output Total 800 / 1550 550 / 2100 1000 / 1000 Balance -500 / -850 -430 / -1280 -640 / -640 Weight last 48 hrs Weight 86.999 kg Weight 86.239 kg Physical Exam Narrative: EXAM NARRATIVE: General exam no apparent distress Cardiovascular regular rate and rhythm without murmur Lungs no wheezes. A few crackles. Abdomen is soft with positive bowel sounds Extremities no cyanosis clubbing or edema Data : 02/02/20 04:35 02/03/20 07:35 A&P Assessment and plan (1) COVID-19: Continue antiviral, dexamethasone Albuterol as needed MRSA PCR was negative Continue doxycycline. Procalcitonin level not elevated Incentive spirometry Currently he is not significantly improved. Needs continued supportive care secondary to high oxygen requirements with Covid 19 pneumonia Status: Acute (2) Trigeminal neuralgia: Continue Neurontin Status: Chronic (3) Hyperlipidemia: Continue statin Status: Chronic Qualifiers: Hyperlipidemia type: unspecified Qualified Code(s): E78.5 - Hyperlipidemia, unspecified (4) Dementia: Continue home meds of Aricept and Namenda Status: Chronic Qualifiers: Dementia behavioral disturbance: without behavioral disturbance Dementia type: unspecified type Qualified Code(s): F03.90 - Unspecified dementia without behavioral disturbance (5) Anxiety: Continue Xanax as needed Status: Chronic Additional A&P Information Obstructive sleep apnea. CPAP while sleeping Lovenox for DVT prophylaxis Full code Attestations Medical Necessity Statement*: Needs continued hospitalization for antiviral, dexamethasone and the support secondary to high oxygen requirement with Covid 19 pneumonia. Coding Level of Care Code Acute Research Phlebotomist for [facility] Fwd Diagnoses COVID-19 U07.1 Trigeminal neuralgia G50.0 Hyperlipidemia E78.5 Hyperlipidemia type: unspecified Dementia F03.90 Dementia behavioral disturbance: without behavioral disturbance Dementia type: unspecified type Anxiety F41.9
--- NOTE | 2020-02-03 16:49 | PC.SOCIAL ---
Pg 2 IMM. Explained to pt's Pg 2 IMM. No questions voiced. Signed, dated, & timed a copy for chart.
[2020-02-03] MEDS: enoxaparin 40 mg/0.4 mL Syringe SUBCUT (17:22)
[2020-02-03] MEDS: ALPRAZolam 0.25 mg Tablet 0.5 MG PO (20:19)
[2020-02-03] MEDS: trazodone 50 mg Tablet PO (20:20)
[2020-02-04] VITALS (25 sets, daily range): BP systolic 102–146; BP diastolic 63–77; PULSE 50–81; RESP 12–21; TEMP 36.5–38.2; O2SAT 83–95
[2020-02-04] MEDS: albuterol 8 gm MDI 2 PUFF INHALATION ×2 (04:40→07:00)
[2020-02-04 06:05] LABS: Basophils # 0.1 10^3/uL (0.0-0.1); Basophils % 0.5 %; Eosinophils % 0.2 %; Hematocrit 45.6 % (42.0-52.0); Hemoglobin 15.7 g/dL (11.7-16.6); Lymphocytes # 1.1 10^3/uL (0.8-4.8); Lymphocytes % 8.9 %; Mean Corpuscular HGB Conc 34.4 g/dL (30.0-36.0); Mean Corpuscular Hemoglobin 31.8 pg (28.0-34.0); Mean Corpuscular Volume 92.3 fL (80-94); Mean Platelet Volume 8.8 fL (7.4-10.4); Monocytes # 1.4 10^3/uL (0.2-0.9); Monocytes % 11.5 %; Neutrophils # 9.41 10^3/uL (1.8-7.7); Neutrophils % 77.3 %; Nucleated Red Blood Cells % 0 %; Platelet Count 271 10^3/cmm (130-400); Red Blood Count 4.94 10^6/uL (4.1-5.3); Red Cell Distribution Width 11.8 % (12.1-15.1); White Blood Count 12.2 10^3/uL (4.0-10.0)
[2020-02-04 06:18] LABS: Alanine Aminotransferase 19 U/L (0-41); Albumin Level 3.4 g/dL (3.5-5.2); Alkaline Phosphatase 95 IU/L (40-130); Anion Gap 15.3 (5-19); Aspartate Amino Transferase 24 U/L (0-40); Blood Urea Nitrogen 23 mg/dL (8-23); Calcium 8.7 mg/dL (8.5-10.5); Carbon Dioxide 26 mmol/L (22-29); Chloride 101 mmol/L (98-107); Globulin 3.3 g/dL (1.3-4.6); Glucose 97 mg/dL (65-115); Osmolality Calculated 290 mOsm/kg (285-295); Potassium 4.3 mmol/L (3.5-5.1); Sodium 138 mmol/L (136-145); Total Bilirubin 0.7 mg/dL (0.15-1.2); Total Protein 6.7 g/dL (6.6-8.7)
[2020-02-04] MEDS: donepezil 5 MG Tablet 10 MG PO (09:03)
[2020-02-04] MEDS: zinc gluconate 50 mg Tablet PO (09:03)
[2020-02-04] MEDS: memantine 5 mg tablet 10 MG PO ×2 (09:03→17:22)
[2020-02-04] MEDS: loratadine 10 mg Tablet PO (09:03)
[2020-02-04] MEDS: dexamethasone 4 mg/mL INJ 6 MG IVP (09:04)
[2020-02-04] MEDS: gabapentin 400 mg Capsule PO ×3 (09:04→21:34)
[2020-02-04] MEDS: ascorbic acid 500 mg Tablet PO ×2 (09:04→17:22)
[2020-02-04] MEDS: pantoprazole DR 40 mg Tablet PO (09:04)
[2020-02-04] MEDS: clopidogrel 75 mg Tablet PO (09:06)
--- NOTE | 2020-02-04 12:03 | PM.PN ---
Subjective Subjective: Interval history: Wilver reports he got choked on his sputum this morning, and after that he is required a higher amount of oxygen. No vomiting. Medications: Reviewed: Yes Vitals/I&O/Wt Last Vital Signs Temp 98.6 F 02/04/20 11:42 Pulse 70 02/04/20 07:10 Resp 16 02/04/20 07:10 BP 121/63 02/04/20 02:00 Pulse Ox 92 02/04/20 07:10 02/03/20 02/04/20 02/04/20 22:59 06:59 14:59 Intake Total 320 / 680 60 / 740 460 / 460 Output Total 1450 / 2450 400 / 2850 375 / 375 Balance -1130 / -1770 -340 / -2110 85 / 85 Weight last 48 hrs Weight 87.044 kg Weight 86.999 kg Physical Exam Narrative: EXAM NARRATIVE: General exam no apparent distress Cardiovascular regular rate and rhythm without murmur Lungs bilateral dry crackles Abdomen is soft with positive bowel sounds Extremities no cyanosis clubbing or edema Data : 02/04/20 04:30 02/04/20 04:30 A&P Assessment and plan (1) COVID-19: Continue antiviral, dexamethasone Albuterol as needed MRSA PCR was negative Incentive spirometry Requiring more oxygen. Will initiate Zosyn. Discontinue doxycycline. Chest x-ray tomorrow. Check sputum culture. Status: Acute (2) Trigeminal neuralgia: Continue Neurontin Status: Chronic (3) Hyperlipidemia: Continue statin Status: Chronic Qualifiers: Hyperlipidemia type: unspecified Qualified Code(s): E78.5 - Hyperlipidemia, unspecified (4) Dementia: Continue home meds of Aricept and Namenda Status: Chronic Qualifiers: Dementia type: unspecified type Dementia behavioral disturbance: without behavioral disturbance Qualified Code(s): F03.90 - Unspecified dementia without behavioral disturbance (5) Anxiety: Continue Xanax as needed Status: Chronic Additional A&P Information Obstructive sleep apnea. CPAP while sleeping Lovenox for DVT prophylaxis Full code Attestations Medical Necessity Statement*: Needs continued hospitalization secondary to Covid 19 pneumonia, with worsening pulmonary status. Coding Level of Care Code Acute Oil Paint Shader for [facility] Fwd Diagnoses COVID-19 U07.1 Trigeminal neuralgia G50.0 Hyperlipidemia E78.5 Hyperlipidemia type: unspecified Dementia F03.90 Dementia type: unspecified type Dementia behavioral disturbance: without behavioral disturbance Anxiety F41.9
[2020-02-04] MEDS: piperacillin-tazobactam 3.375 GM in sodium chloride 0.9% (plus) 50 ML IV ×2 (14:12→21:35)
--- NOTE | 2020-02-04 16:06 | PC.NURSE ---
Assumed care of this patient at this time from DENEEN Rao. Patient stable. No complaints at this time. Will continue to monitor.
[2020-02-04] MEDS: enoxaparin 40 mg/0.4 mL Syringe SUBCUT (17:22)
--- NOTE | 2020-02-04 19:07 | PC.PHAR ---
Remdesivir therapy extended another five days (10 total) per rbvo Dr. Martinez
[2020-02-04] MEDS: atorvastatin 40 mg Tablet 20 MG PO (21:34)
[2020-02-04] MEDS: trazodone 50 mg Tablet PO (21:34)
[2020-02-04] MEDS: ALPRAZolam 0.25 mg Tablet 0.5 MG PO (21:34)
[2020-02-05] VITALS (31 sets, daily range): BP systolic 107–134; BP diastolic 52–76; PULSE 56–79; RESP 9–25; TEMP 36.8–37.1; O2SAT 87–98
[2020-02-05] MEDS: piperacillin-tazobactam 3.375 GM in sodium chloride 0.9% (plus) 50 ML IV ×3 (04:42→20:31)
[2020-02-05 06:30] LABS: Basophils # 0.1 10^3/uL (0.0-0.1); Basophils % 0.8 %; Eosinophils # 0.1 10^3/uL (0.0-0.8); Eosinophils % 0.4 %; Hematocrit 46.5 % (42.0-52.0); Hemoglobin 15.2 g/dL (11.7-16.6); Lymphocytes # 0.8 10^3/uL (0.8-4.8); Lymphocytes % 7.1 %; Mean Corpuscular HGB Conc 32.7 g/dL (30.0-36.0); Mean Corpuscular Volume 97.9 fL (80-94); Mean Platelet Volume 9.6 fL (7.4-10.4); Monocytes # 1.3 10^3/uL (0.2-0.9); Monocytes % 10.7 %; Neutrophils # 9.24 10^3/uL (1.8-7.7); Neutrophils % 77.6 %; Nucleated Red Blood Cells % 0 %; Platelet Count 264 10^3/cmm (130-400); Red Blood Count 4.75 10^6/uL (4.1-5.3); White Blood Count 11.9 10^3/uL (4.0-10.0)
[2020-02-05 06:44] LABS: D Dimer 0.87 ug/mIFEU (0-0.59)
[2020-02-05 06:48] LABS: Slide Review Slide Review Perform
[2020-02-05 06:49] LABS: Alanine Aminotransferase 15 U/L (0-41); Albumin Level 2.9 g/dL (3.5-5.2); Alkaline Phosphatase 86 IU/L (40-130); Anion Gap 15.3 (5-19); Aspartate Amino Transferase 21 U/L (0-40); Blood Urea Nitrogen 23 mg/dL (8-23); C Reactive Protein 86.6 mg/L (0.0-4.9); Calcium 8.5 mg/dL (8.5-10.5); Carbon Dioxide 21 mmol/L (22-29); Chloride 100 mmol/L (98-107); Globulin 3.5 g/dL (1.3-4.6); Glucose 99 mg/dL (65-115); Osmolality Calculated 278 mOsm/kg (285-295); Potassium 4.3 mmol/L (3.5-5.1); Sodium 132 mmol/L (136-145); Total Bilirubin 0.7 mg/dL (0.15-1.2); Total Protein 6.4 g/dL (6.6-8.7)
[2020-02-05 06:51] LABS: Ferritin 847 ng/mL (30-400)
--- NOTE | 2020-02-05 07:08 | PC.NURSE ---
Shift Events: Patient remains on Optiflow at 60% FiO2 and 60 liters. Good urine output. Had trouble sleeping but did take his Xanax once. Feels that he is constipated. Oriented x 4. Remained free of harm and injury during this shift.
[2020-02-05] MEDS: albuterol 8 gm MDI 2 PUFF INHALATION (07:55)
[2020-02-05] MEDS: clopidogrel 75 mg Tablet PO (08:20)
[2020-02-05] MEDS: dexamethasone 4 mg/mL INJ 6 MG IVP (08:20)
[2020-02-05] MEDS: ascorbic acid 500 mg Tablet PO ×2 (08:20→17:40)
[2020-02-05] MEDS: ALPRAZolam 0.25 mg Tablet 0.5 MG PO ×2 (08:20→20:30)
[2020-02-05] MEDS: donepezil 5 MG Tablet 10 MG PO (08:22)
[2020-02-05] MEDS: zinc gluconate 50 mg Tablet PO (08:22)
[2020-02-05] MEDS: pantoprazole DR 40 mg Tablet PO (08:22)
[2020-02-05] MEDS: gabapentin 400 mg Capsule PO ×3 (08:22→20:30)
[2020-02-05] MEDS: loratadine 10 mg Tablet PO (08:22)
[2020-02-05] MEDS: memantine 5 mg tablet 10 MG PO ×2 (08:22→17:40)
[2020-02-05] MEDS: benzonatate 100 mg Capsule PO ×2 (08:25→20:31)
--- NOTE | 2020-02-05 09:14 | PC.SOCIAL ---
IMM Update Pg. 2 of IMM with patient's over the phone. Verbalized understanding.
--- NOTE | 2020-02-05 09:51 | PM.PN ---
Subjective Subjective: Interval history: Wilver has had increasing oxygen requirements. He is now amenable to proning and will see if this has a good effect. Medications: Reviewed: Yes Vitals/I&O/Wt Last Vital Signs Temp 98.3 F 02/05/20 08:00 Pulse 62 02/05/20 07:54 Resp 22 H 02/05/20 07:54 BP 116/62 02/05/20 04:00 Pulse Ox 92 02/05/20 07:54 02/04/20 02/05/20 02/05/20 22:59 06:59 14:59 Intake Total 980 / 1760 50 / 1810 Output Total 450 / 1025 650 / 1675 Balance 530 / 735 -600 / 135 Weight last 48 hrs Weight 87.815 kg Weight 87.044 kg Physical Exam Narrative: EXAM NARRATIVE: General exam no apparent distress Cardiovascular regular rate and rhythm without murmur Lungs bilateral dry crackles Abdomen is soft with positive bowel sounds Extremities no cyanosis clubbing or edema Data : 02/05/20 05:30 02/05/20 05:30 Micro: Microbiology 02/04/20 16:00 Gram Stain - Final Sputum - Expectorated Sputum A&P Assessment and plan (1) COVID-19: Continue antiviral, dexamethasone. He will be getting 10 days total of remdesivir. Albuterol as needed MRSA PCR was negative Incentive spirometry Continue Zosyn. Chest x-ray without significant improvement. Sputum culture pending. With worsening check CTA of chest to rule out pulmonary embolism. Status: Acute (2) Trigeminal neuralgia: Continue Neurontin Status: Chronic (3) Hyperlipidemia: Continue statin Status: Chronic Qualifiers: Hyperlipidemia type: unspecified Qualified Code(s): E78.5 - Hyperlipidemia, unspecified (4) Dementia: Continue home meds of Aricept and Namenda Status: Chronic Qualifiers: Dementia type: unspecified type Dementia behavioral disturbance: without behavioral disturbance Qualified Code(s): F03.90 - Unspecified dementia without behavioral disturbance (5) Anxiety: Continue Xanax as needed Status: Chronic Additional A&P Information Obstructive sleep apnea. CPAP while sleeping Lovenox for DVT prophylaxis Full code Attestations Medical Necessity Statement*: Needs continued hospital stay for antiviral, dexamethasone and supportive care secondary to severe COVID-19 pneumonia. Coding Level of Care Code Acute Potato Chip Packaging Machine Operator for [facility] Fwd Diagnoses COVID-19 U07.1 Trigeminal neuralgia G50.0 Hyperlipidemia E78.5 Hyperlipidemia type: unspecified Dementia F03.90 Dementia type: unspecified type Dementia behavioral disturbance: without behavioral disturbance Anxiety F41.9
--- NOTE | 2020-02-05 09:54 | CT_ITS ---
WS: [id number] CTA scan of the chest with IV contrast. Additional two-dimensional coronal and sagittal reconstructio n and MIP images was performed. 02/05/2020 Clinical Data: worsening resp status Comparison: Portable chest, 02/05/2020 DLP: 553.[address] scans at [facility] use at least one of these dose optimization techniques: automat ed exposure control; mA and/or kV adjustment per patient size (includes targeted exams where dose is matched to clinical indication); or iterative reconstruction. Findings: The central pulmonary arteries and peripheral pulmonary arteries fill normally with no evidence of in traluminal filling defects. No pulmonary embolic disease is noted. Dense consolidation in the upper and lower lobes is present. This is most consistent with severe pneu monia.No nodules, masses or effusions are seen. The heart size is enlarged with no pericardial effusi on. There is coronary artery calcification. The pulmonary arterial system and thoracic aorta demonstr ate no abnormalities or dilatations. There is no axillary or significant mediastinal adenopathy. The thyroid gland shows normal enhancement. The trachea bifurcates into the bronchi. Midline sternotomy s utures are seen. There are gallstones. The visualized liver, spleen, pancreas, adrenal glands and superior poles of th e kidneys are not remarkable. 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 CT/CT angio chest PE protcl [id number] Impression: 1 negative for pulmonary embolic disease. 2. Severe bilateral consolidation consistent with pneumonia.
[2020-02-05] MEDS: iohexol 350 mg/mL 100 mL Btl IV (16:26)
[2020-02-05] MEDS: enoxaparin 40 mg/0.4 mL Syringe SUBCUT (17:40)
--- NOTE | 2020-02-05 19:00 | XR_ITS ---
WS: [id number] PORTABLE CHEST HISTORY: follow up pneumonia COMPARISON: 02/02/2020 Prior median sternotomy. Scattered interstitial thickening and subsegmental opacifications. Most significant opacification in the RIGHT upper lobe and at the LEFT lung base. No improvement. No pleural effusion or pneumothorax. Cardiac size: Mildly enlarged cardiac silhouette. Mediastinum/Aorta: Mild atherosclerosis aorta. No osseous abnormality seen. XR/XR chest 1V portable [id number] IMPRESSION: 1. Mild scattered pulmonary opacifications. No improvement. 2. Mild cardiomegaly.
[2020-02-05] MEDS: atorvastatin 40 mg Tablet 20 MG PO (20:31)
[2020-02-05] MEDS: trazodone 50 mg Tablet PO (20:31)
[2020-02-06] VITALS (33 sets, daily range): BP systolic 108–140; BP diastolic 46–78; PULSE 62–101; RESP 0–31; TEMP 36.6–37.9; O2SAT 84–95; BMI 27.0
[2020-02-06] MEDS: ondansetron 2 mg/ML SDV 2 mL 4 MG IVP (00:52)
[2020-02-06] MEDS: ipratropium-albuterol 3 mL Neb INHALATION ×4 (04:15→20:14)
[2020-02-06] MEDS: piperacillin-tazobactam 3.375 GM in sodium chloride 0.9% (plus) 50 ML IV (05:29)
[2020-02-06 05:50] LABS: Alanine Aminotransferase 14 U/L (0-41); Albumin Level 2.8 g/dL (3.5-5.2); Alkaline Phosphatase 82 IU/L (40-130); Anion Gap 13.5 (5-19); Aspartate Amino Transferase 21 U/L (0-40); Blood Urea Nitrogen 22 mg/dL (8-23); Calcium 8.3 mg/dL (8.5-10.5); Carbon Dioxide 23 mmol/L (22-29); Chloride 101 mmol/L (98-107); Globulin 3.1 g/dL (1.3-4.6); Glucose 102 mg/dL (65-115); Osmolality Calculated 280 mOsm/kg (285-295); Potassium 4.5 mmol/L (3.5-5.1); Sodium 133 mmol/L (136-145); Total Bilirubin 0.7 mg/dL (0.15-1.2); Total Protein 5.9 g/dL (6.6-8.7)
[2020-02-06 08:03] LABS: ABG PCO2 37.3 mmHg (35-45); ABG PH Result 7.45 (7.35-7.45); Alveolar-Arterial Oxygen Gradi 77.9 mmHg (5-10); Arterial Blood Gas Hematocrit 47.4 % (42-52); Base Excess ABG 2.1 mmol/L (-2.0-2.0); Blood Gas Allen Test Pos; Blood Gas Operator Identificat MONRO; Blood Gas Sample Site Radial, right; Blood Gas Sample Type Arterial; Carboxyhemoglobin 0.9 %THgb (0.4-20.1); HGB O2 Sat 93.4 % (95-100); Ionized Calcium Level - ABG 1.2 mmol/L (1.1-1.4); Methemoglobin 0.7 % (0.4-1.5); Oxygen Device NC; Oxygen Saturation ABG 94.9; PO2 ABG 67.4 mmHg (80.0-100.0); Potassium Level - ABG 4.5 mmol/L (3.5-5.0); Total Hemoglobin 15.5 g/dL (14-18)
[2020-02-06] MEDS: ascorbic acid 500 mg Tablet PO ×2 (08:44→17:06)
[2020-02-06] MEDS: clopidogrel 75 mg Tablet PO (08:45)
[2020-02-06] MEDS: gabapentin 400 mg Capsule PO ×3 (08:46→20:03)
[2020-02-06] MEDS: loratadine 10 mg Tablet PO (08:46)
[2020-02-06] MEDS: donepezil 5 MG Tablet 10 MG PO (08:46)
[2020-02-06] MEDS: pantoprazole DR 40 mg Tablet PO (08:47)
[2020-02-06] MEDS: memantine 5 mg tablet 10 MG PO ×2 (08:47→17:06)
[2020-02-06] MEDS: zinc gluconate 50 mg Tablet PO (08:47)
[2020-02-06] MEDS: dexamethasone 4 mg/mL INJ 6 MG IVP (09:20)
--- NOTE | 2020-02-06 10:58 | PM.PN ---
Subjective Subjective: Interval history: Bill reports that he is about the same. Still very short of breath. He required increasing FiO2 requirements last night. Medications: Reviewed: Yes Vitals/I&O/Wt Last Vital Signs Temp 97.9 F 02/06/20 04:00 Pulse 78 02/06/20 09:52 Resp 20 H 02/06/20 09:52 BP 108/66 02/06/20 04:00 Pulse Ox 94 02/06/20 09:52 02/05/20 02/06/20 02/06/20 22:59 06:59 14:59 Intake Total 880 / 1590 150 / 1740 Output Total 1300 / 1450 350 / 1800 Balance -420 / 140 -200 / -60 Weight last 48 hrs Weight 87.815 kg Weight 87.815 kg Physical Exam Narrative: EXAM NARRATIVE: General exam no apparent distress Cardiovascular regular rate and rhythm without murmur Lungs bilateral dry crackles Abdomen is soft with positive bowel sounds Extremities no cyanosis clubbing or edema Data : 02/05/20 05:30 02/06/20 04:25 Micro: Microbiology 01/31/20 18:15 Blood Culture - Final Blood NO GROWTH AFTER 5 DAYS 01/31/20 18:00 Blood Culture - Final Blood NO GROWTH AFTER 5 DAYS A&P Assessment and plan (1) COVID-19: Continue antiviral, dexamethasone. He will be getting 10 days total of remdesivir. Albuterol as needed MRSA PCR was negative Incentive spirometry He has worsened. CT demonstrated consolidation. Chest x-ray without significant improvement. Sputum culture pending. Change antibiotics to IV Primaxin and vancomycin CTA did not demonstrate pulmonary embolism Check urinalysis secondary to temperature elevation Prognosis guarded Status: Acute (2) Trigeminal neuralgia: Continue Neurontin Status: Chronic (3) Hyperlipidemia: Continue statin Status: Chronic Qualifiers: Hyperlipidemia type: unspecified Qualified Code(s): E78.5 - Hyperlipidemia, unspecified (4) Dementia: Continue home meds of Aricept and Namenda Status: Chronic Qualifiers: Dementia type: unspecified type Dementia behavioral disturbance: without behavioral disturbance Qualified Code(s): F03.90 - Unspecified dementia without behavioral disturbance (5) Anxiety: Continue Xanax as needed Status: Chronic Additional A&P Information Obstructive sleep apnea. CPAP while sleeping Lovenox for DVT prophylaxis Full code Attestations Medical Necessity Statement*: Needs continued hospitalization for supportive care, antiviral, and antibiotics considering his respiratory failure with COVID-19 pneumonia and possible superimposed bacterial pneumonia Coding Level of Care Code Acute Metal Precision Machine Assembler for [facility] Fwd Diagnoses COVID-19 U07.1 Trigeminal neuralgia G50.0 Hyperlipidemia E78.5 Hyperlipidemia type: unspecified Dementia F03.90 Dementia type: unspecified type Dementia behavioral disturbance: without behavioral disturbance Anxiety F41.9
[2020-02-06] MEDS: budesonide 0.5 mg/2 mL Neb INHALATION ×2 (11:37→20:14)
[2020-02-06 16:53] LABS: Bilirubin Urine Neg (Negative); Blood Urine 2+ (Negative); Glucose Urine UA Norm (Normal); Ketones Urine Negative (Negative); Leukocyte Esterase Urine Negative (Negative); Nitrate Urine Negative (Negative); Protein Urine Trace (Negative); Urine Appearance SL Hazy (CLEAR); Urine Color Yellow (Yellow); Urobilinogen Urine 4 mg/dL (Negative); pH Urine 5 (5-7)
[2020-02-06] MEDS: enoxaparin 40 mg/0.4 mL Syringe SUBCUT (17:06)
[2020-02-06 17:12] LABS: Bacteria Urine 2+ /hpf; RBC Urine 0-4 /hpf (0-2); Squamous Epithelial Cell Urine 0-4 /hpf (0-5); WBC Urine 0-4 /hpf (0-5)
[2020-02-06 17:13] LABS: Add Urine Culture? Yes; Coarse Granular Casts Urine 0-4 /lpf; Mucus Urine 1+ /hpf
[2020-02-06] MEDS: atorvastatin 40 mg Tablet 20 MG PO (20:02)
[2020-02-06] MEDS: trazodone 50 mg Tablet PO (20:03)
[2020-02-06] MEDS: ALPRAZolam 0.25 mg Tablet 0.5 MG PO (21:12)
[2020-02-07] VITALS (38 sets, daily range): BP systolic 113–134; BP diastolic 51–73; PULSE 58–101; RESP 16–26; TEMP 37–37.2; O2SAT 87–97; BMI 25.7
[2020-02-07] MEDS: ipratropium-albuterol 3 mL Neb INHALATION ×7 (00:34→23:06)
[2020-02-07 05:00] LABS: Basophils % 0.3 %; Hematocrit 39.5 % (42.0-52.0); Hemoglobin 12.9 g/dL (11.7-16.6); Lymphocytes # 0.7 10^3/uL (0.8-4.8); Lymphocytes % 4.6 %; Mean Corpuscular HGB Conc 32.7 g/dL (30.0-36.0); Mean Corpuscular Hemoglobin 32.5 pg (28.0-34.0); Mean Corpuscular Volume 99.5 fL (80-94); Mean Platelet Volume 8.9 fL (7.4-10.4); Monocytes % 7.1 %; Neutrophils % 85.4 %; Nucleated Red Blood Cells % 0 %; Platelet Count 319 10^3/cmm (130-400); Red Blood Count 3.97 10^6/uL (4.1-5.3); Red Cell Distribution Width 11.9 % (12.1-15.1); White Blood Count 14.3 10^3/uL (4.0-10.0)
[2020-02-07 05:35] LABS: Procalcitonin 0.17 ng/mL (0-0.5)
[2020-02-07 05:38] LABS: Alanine Aminotransferase 13 U/L (0-41); Albumin Level 2.7 g/dL (3.5-5.2); Alkaline Phosphatase 86 IU/L (40-130); Anion Gap 15.5 (5-19); Aspartate Amino Transferase 21 U/L (0-40); Blood Urea Nitrogen 22 mg/dL (8-23); C Reactive Protein 139.6 mg/L (0.0-4.9); Calcium 8.4 mg/dL (8.5-10.5); Carbon Dioxide 22 mmol/L (22-29); Chloride 101 mmol/L (98-107); Globulin 3.1 g/dL (1.3-4.6); Glucose 115 mg/dL (65-115); Osmolality Calculated 282 mOsm/kg (285-295); Potassium 4.5 mmol/L (3.5-5.1); Sodium 134 mmol/L (136-145); Total Bilirubin 0.7 mg/dL (0.15-1.2); Total Protein 5.8 g/dL (6.6-8.7)
[2020-02-07 05:42] LABS: D Dimer 16.31 ug/mIFEU (0-0.59)
[2020-02-07] MEDS: ascorbic acid 500 mg Tablet PO ×2 (08:44→17:23)
[2020-02-07] MEDS: memantine 5 mg tablet 10 MG PO ×2 (08:45→17:23)
[2020-02-07] MEDS: donepezil 5 MG Tablet 10 MG PO (08:45)
[2020-02-07] MEDS: clopidogrel 75 mg Tablet PO (08:45)
[2020-02-07] MEDS: zinc gluconate 50 mg Tablet PO (08:45)
[2020-02-07] MEDS: pantoprazole DR 40 mg Tablet PO (08:45)
[2020-02-07] MEDS: loratadine 10 mg Tablet PO (08:45)
[2020-02-07] MEDS: gabapentin 400 mg Capsule PO ×3 (08:45→20:32)
[2020-02-07] MEDS: benzonatate 100 mg Capsule PO (08:46)
[2020-02-07] MEDS: budesonide 0.5 mg/2 mL Neb INHALATION ×2 (09:14→19:51)
[2020-02-07] MEDS: enoxaparin 80 mg/0.8 mL Syringe SUBCUT ×2 (09:36→20:32)
--- NOTE | 2020-02-07 10:27 | P.PN_ITS ---
Subjective Subjective: Interval history: Wilver reports he could smell a banana this morning. He is still very short of breath and requiring a high amount of FiO2. Medications: Reviewed: Yes Vitals/I&O/Wt Last Vital Signs Temp 98.6 F 02/07/20 08:00 Pulse 77 02/07/20 10:17 Resp 19 H 02/07/20 10:17 BP 127/69 02/07/20 08:00 Pulse Ox 92 02/07/20 10:17 02/06/20 02/07/20 02/07/20 22:59 06:59 14:59 Intake Total 750 / 1340 100 / 1440 240 / 240 Output Total 500 / 700 400 / 1100 400 / 400 Balance 250 / 640 -300 / 340 -160 / -160 Weight last 48 hrs Weight 83.915 kg Weight 87.815 kg Physical Exam Narrative: EXAM NARRATIVE: General exam no apparent distress Cardiovascular regular rate and rhythm without murmur Lungs crackles bilaterally Abdomen is soft with positive bowel sounds Extremities no cyanosis clubbing or edema Data : 02/07/20 04:32 02/07/20 04:32 Micro: Microbiology 02/04/20 16:00 Gram Stain - Final Sputum - Expectorated Sputum Sputum Culture - Preliminary A&P Assessment and plan (1) COVID-19: Continue antiviral, dexamethasone. He will be getting 10 days total of remdesivir. Albuterol as needed MRSA PCR was negative Incentive spirometry He has not yet improved. CT demonstrated consolidation. Chest x-ray without significant improvement. Sputum culture negative. Currently on Primaxin and vancomycin CTA did not demonstrate pulmonary embolism. However dimer has increased significantly since then and will change to full dose anticoagulation Urinalysis was checked and infection unlikely Prognosis guarded Status: Acute (2) Trigeminal neuralgia: Continue Neurontin Status: Chronic (3) Hyperlipidemia: Continue statin Status: Chronic Qualifiers: Hyperlipidemia type: unspecified Qualified Code(s): E78.5 - Hyperlipidemia, unspecified (4) Dementia: Continue home meds of Aricept and Namenda Status: Chronic Qualifiers: Dementia type: unspecified type Dementia behavioral disturbance: without behavioral disturbance Qualified Code(s): F03.90 - Unspecified dementia without behavioral disturbance (5) Anxiety: Continue Xanax as needed Status: Chronic Additional A&P Information Obstructive sleep apnea. CPAP while sleeping Lovenox for DVT prophylaxis Full code Attestations Medical Necessity Statement*: Needs continued hospitalization secondary to severe COVID-19 pneumonia requiring high amount of FiO2 Coding Level of Care Code Acute Door Frame Builder for [facility] Diagnoses COVID-19 U07.1 Trigeminal neuralgia G50.0 Hyperlipidemia E78.5 Hyperlipidemia type: unspecified Dementia F03.90 Dementia type: unspecified type Dementia behavioral disturbance: without behavioral disturbance Anxiety F41.9
[2020-02-07] MEDS: dexamethasone 4 mg/mL INJ 6 MG IVP (10:34)
--- NOTE | 2020-02-07 14:45 | DCPLANNER ---
Phoned ; Angely and updated the IM with her. No questions and she appreciates the call.
[2020-02-07] MEDS: trazodone 50 mg Tablet PO (20:32)
[2020-02-07] MEDS: atorvastatin 40 mg Tablet 20 MG PO (20:32)
[2020-02-07 21:51] LABS: Vancomycin Trough 11.8 ug/mL (10-15)
[2020-02-08] VITALS (40 sets, daily range): BP systolic 102–139; BP diastolic 63–79; PULSE 59–122; RESP 15–26; TEMP 36.3–37.2; O2SAT 79–96
[2020-02-08] MEDS: ipratropium-albuterol 3 mL Neb INHALATION ×6 (03:11→23:21)
[2020-02-08 05:04] LABS: Basophils % 0.2 %; Hematocrit 41.2 % (42.0-52.0); Hemoglobin 14.1 g/dL (11.7-16.6); Lymphocytes # 0.6 10^3/uL (0.8-4.8); Lymphocytes % 4.4 %; Mean Corpuscular HGB Conc 34.2 g/dL (30.0-36.0); Mean Corpuscular Hemoglobin 32.1 pg (28.0-34.0); Mean Corpuscular Volume 93.8 fL (80-94); Mean Platelet Volume 9.6 fL (7.4-10.4); Monocytes # 0.7 10^3/uL (0.2-0.9); Monocytes % 5.1 %; Neutrophils # 11.58 10^3/uL (1.8-7.7); Nucleated Red Blood Cells % 0 %; Platelet Count 332 10^3/cmm (130-400); Red Blood Count 4.39 10^6/uL (4.1-5.3); Red Cell Distribution Width 11.7 % (12.1-15.1); White Blood Count 13.2 10^3/uL (4.0-10.0)
[2020-02-08] MEDS: budesonide 0.5 mg/2 mL Neb INHALATION ×2 (08:07→20:11)
[2020-02-08] MEDS: ascorbic acid 500 mg Tablet PO ×2 (09:14→15:02)
[2020-02-08] MEDS: zinc gluconate 50 mg Tablet PO (09:14)
[2020-02-08] MEDS: dexamethasone 4 mg/mL INJ 6 MG IVP (09:15)
[2020-02-08] MEDS: clopidogrel 75 mg Tablet PO (09:15)
[2020-02-08] MEDS: pantoprazole DR 40 mg Tablet PO (09:16)
[2020-02-08] MEDS: gabapentin 400 mg Capsule PO ×3 (09:20→20:28)
[2020-02-08] MEDS: memantine 5 mg tablet 10 MG PO ×2 (09:21→15:03)
[2020-02-08] MEDS: donepezil 5 MG Tablet 10 MG PO (09:21)
[2020-02-08] MEDS: loratadine 10 mg Tablet PO (09:21)
[2020-02-08] MEDS: enoxaparin 80 mg/0.8 mL Syringe SUBCUT ×2 (09:22→21:06)
[2020-02-08] MEDS: FUROsemide 10 mg/mL SDV 4mL 40 MG IVP (10:13)
--- NOTE | 2020-02-08 10:31 | P.PN_ITS ---
Subjective Subjective: Interval history: Wilver had issues with decreasing oxygen again last night. FiO2 requirement increased. He has now tapering down again. He reports he feels about the same as yesterday. Medications: Reviewed: Yes Vitals/I&O/Wt Last Vital Signs Temp 97.6 F 02/08/20 04:00 Pulse 98 02/08/20 09:28 Resp 20 H 02/08/20 09:28 BP 131/66 02/08/20 06:01 Pulse Ox 91 02/08/20 09:28 02/07/20 02/08/20 02/08/20 22:59 06:59 14:59 Intake Total 440 / 1030 200 / 1230 350 / 350 Output Total 450 / 950 800 / 1750 Balance - -600 / -520 350 / 350 Weight last 48 hrs Weight 86.364 kg Weight 83.915 kg Physical Exam Narrative: EXAM NARRATIVE: General exam mild to moderate respiratory distress Cardiovascular regular rate and rhythm without murmur Lungs coarse bilaterally Abdomen is soft with positive bowel sounds Extremities no cyanosis clubbing or edema Data : 02/08/20 03:45 02/07/20 04:32 Micro: Microbiology 02/04/20 16:00 Gram Stain - Final Sputum - Expectorated Sputum Sputum Culture - Final A&P Assessment and plan (1) COVID-19: Continue antiviral, dexamethasone. He will be getting 10 days total of remdesivir. Albuterol as needed MRSA PCR was negative Incentive spirometry He has not yet improved. CT demonstrated consolidation. Chest x-ray without significant improvement. Sputum culture negative. Currently on Primaxin and vancomycin CTA did not demonstrate pulmonary embolism. However dimer has increased significantly following CTA so anticoagulation was increased to full dose Urinalysis was checked and infection unlikely Prognosis guarded Secondary to worsening respiratory status overnight and it appears he has -2600 cc since admission we will give a dose of 40 mg of Lasix to see if this improves his respiratory condition as renal function is stable Check chest x-ray tomorrow Status: Acute (2) Trigeminal neuralgia: Continue Neurontin Status: Chronic (3) Hyperlipidemia: Continue statin Status: Chronic Qualifiers: Hyperlipidemia type: unspecified Qualified Code(s): E78.5 - Hyperlipidemia, unspecified (4) Dementia: Continue home meds of Aricept and Namenda Status: Chronic Qualifiers: Dementia type: unspecified type Dementia behavioral disturbance: without behavioral disturbance Qualified Code(s): F03.90 - Unspecified dementia without behavioral disturbance (5) Anxiety: Continue Xanax as needed Status: Chronic Additional A&P Information Obstructive sleep apnea. CPAP while sleeping Lovenox for DVT prophylaxis Full code Attestations Medical Necessity Statement*: Needs continued hospital stay secondary to severe COVID-19 pneumonia Coding Level of Care Code Acute Training Program Manager for [facility] Diagnoses COVID-19 U07.1 Trigeminal neuralgia G50.0 Hyperlipidemia E78.5 Hyperlipidemia type: unspecified Dementia F03.90 Dementia type: unspecified type Dementia behavioral disturbance: without behavioral disturbance Anxiety F41.9
[2020-02-08] MEDS: benzonatate 100 mg Capsule PO (11:37)
[2020-02-08] MEDS: ALPRAZolam 0.25 mg Tablet 0.5 MG PO ×2 (11:37→21:05)
[2020-02-08 11:49] LABS: Alanine Aminotransferase 17 U/L (0-41); Albumin Level 2.6 g/dL (3.5-5.2); Alkaline Phosphatase 120 IU/L (40-130); Anion Gap 17.3 (5-19); Aspartate Amino Transferase 26 U/L (0-40); Blood Urea Nitrogen 24 mg/dL (8-23); Calcium 9.1 mg/dL (8.5-10.5); Carbon Dioxide 24 mmol/L (22-29); Chloride 97 mmol/L (98-107); Globulin 3.8 g/dL (1.3-4.6); Glucose 174 mg/dL (65-115); Osmolality Calculated 286 mOsm/kg (285-295); Potassium 4.3 mmol/L (3.5-5.1); Sodium 134 mmol/L (136-145); Total Bilirubin 0.6 mg/dL (0.15-1.2); Total Protein 6.4 g/dL (6.6-8.7)
[2020-02-08] MEDS: sennosides-docusate Tablet 1 TAB PO (15:05)
--- NOTE | 2020-02-08 17:46 | PC.NURSE ---
EARLY AM ASSESSMENT FOUND PATIENT SATING WELL ON BIPAP BUT ONLY SATS WELL ON HF IF ON RIGHT SIDE. REQURING 90 TO 100% EARLY IN SHIFT.LASIX GIVEN AROUND 0830 CAUSED MUCH STRESS ON HIS OXYGEN DEMAND AND ON HIS SECOND VOID IN 15 MIN HE WENT TO 73%. . MACK PLACED PER ORDER AND PATIENTS SAFETY AND NOTED 600 IN RESIDUAL URINE IN HIS BLADDER AT PLACEMENT. HIS HEART RATE TACHED UP AND WENT TO 126 WITH SATS AT 89 TO 91 AROUND NOON HOUR. ORAL CARE AND PROMISED SHAVE GIVEN AND BIPAP RESUMED. HIS BATH WAS COMPLETED AND BED CHANGED. HE SLEPT WELL AND WE WERE ABLE TO WEAN HIS OXYGEN TO 70% ON BIPAP AND HIS HEART RATE RETURNED TO NEARLY SINUS . HIS FAMILY WAS UPDATED 2X. THEY SENT HIM CLOTHES AND GATORADE AND HONEY AND BISCUTS. THEY SENT US SOME NUTRITIONAL SNACKS. ITS BEEN A PLEASURE MAKING HIM FEEL BETTER.
[2020-02-08] MEDS: trazodone 50 mg Tablet PO (20:28)
[2020-02-08] MEDS: atorvastatin 40 mg Tablet 20 MG PO (20:28)
[2020-02-09] VITALS (31 sets, daily range): BP systolic 100–144; BP diastolic 64–80; PULSE 65–103; RESP 14–21; TEMP 36.4–37.2; O2SAT 88–95
[2020-02-09] MEDS: ipratropium-albuterol 3 mL Neb INHALATION ×5 (03:47→21:05)
[2020-02-09 06:33] LABS: D Dimer 4.59 ug/mIFEU (0-0.59)
[2020-02-09 06:36] LABS: Alanine Aminotransferase 18 U/L (0-41); Albumin Level 2.6 g/dL (3.5-5.2); Alkaline Phosphatase 114 IU/L (40-130); Anion Gap 13.7 (5-19); Aspartate Amino Transferase 21 U/L (0-40); Blood Urea Nitrogen 27 mg/dL (8-23); C Reactive Protein 128.2 mg/L (0.0-4.9); Calcium 8.5 mg/dL (8.5-10.5); Carbon Dioxide 28 mmol/L (22-29); Chloride 99 mmol/L (98-107); Globulin 3.6 g/dL (1.3-4.6); Glucose 130 mg/dL (65-115); Osmolality Calculated 289 mOsm/kg (285-295); Potassium 4.7 mmol/L (3.5-5.1); Sodium 136 mmol/L (136-145); Total Bilirubin 0.6 mg/dL (0.15-1.2); Total Protein 6.2 g/dL (6.6-8.7)
[2020-02-09 06:41] LABS: Procalcitonin 0.15 ng/mL (0-0.5)
--- NOTE | 2020-02-09 07:00 | XRR_ITS ---
PROCEDURE INFORMATION: Exam: XR Chest, 1 View Exam date and time: 02/09/2020 8:04 AM Age: 79 years old Clinical indication: Condition or disease; Lung condition and disease; Pneumonia; Additional info: Follow up pneumonia TECHNIQUE: Imaging protocol: XR of the chest Views: 1 view. COMPARISON: CR XR chest 1V portable [id number] 02/05/2020 7:46 AM FINDINGS: Lungs: Bilateral pulmonary infiltrates are present specially in the right upper lobe and left lung base. These infiltrates have not significantly changed allowing for differences in technique. Pleural space: Unremarkable. No pleural effusion. No pneumothorax. Heart/Mediastinum: Clips and sutures are present from cardiovascular surgery. Bones/joints: Unremarkable. XR/XR chest 1V portable [id number] IMPRESSION: No significant change of the bilateral pulmonary infiltrates.
[2020-02-09] MEDS: budesonide 0.5 mg/2 mL Neb INHALATION ×2 (07:45→21:05)
[2020-02-09] MEDS: pantoprazole DR 40 mg Tablet PO (08:35)
[2020-02-09] MEDS: memantine 5 mg tablet 10 MG PO ×2 (08:35→17:31)
[2020-02-09] MEDS: donepezil 5 MG Tablet 10 MG PO (08:35)
[2020-02-09] MEDS: zinc gluconate 50 mg Tablet PO (08:35)
[2020-02-09] MEDS: ascorbic acid 500 mg Tablet PO ×3 (08:35→17:31)
[2020-02-09] MEDS: clopidogrel 75 mg Tablet PO (08:35)
[2020-02-09] MEDS: gabapentin 400 mg Capsule PO ×3 (08:35→20:36)
[2020-02-09] MEDS: dexamethasone 4 mg/mL INJ 6 MG IVP (08:36)
[2020-02-09] MEDS: enoxaparin 80 mg/0.8 mL Syringe SUBCUT ×2 (08:37→20:38)
[2020-02-09] MEDS: loratadine 10 mg Tablet PO (08:37)
[2020-02-09] MEDS: FUROsemide 10 mg/mL SDV 4mL 20 MG IVP (09:09)
--- NOTE | 2020-02-09 11:16 | PC.SOCIAL ---
IMM Update Pg. 2 of IMM Updated with patient's over the phone. Verbalized understanding.
[2020-02-09 11:23] LABS: ABG PCO2 41.5 mmHg (35-45); ABG PH Result 7.44 (7.35-7.45); Alveolar-Arterial Oxygen Gradi 44.4 mmHg (5-10); Arterial Blood Gas Hematocrit 48.5 % (42-52); Base Excess ABG 3.2 mmol/L (-2.0-2.0); Blood Gas Allen Test Pos; Blood Gas Operator Identificat MONRO; Blood Gas Sample Site Radial, right; Blood Gas Sample Type Arterial; Carboxyhemoglobin 0.7 %THgb (0.4-20.1); HCO3 ABG 27.8 mmol/L (22-26); HGB O2 Sat 97.4 % (95-100); Ionized Calcium Level - ABG 1.2 mmol/L (1.1-1.4); Methemoglobin 0.5 % (0.4-1.5); Oxygen Device NC; Oxygen Saturation ABG 98.6; Total Hemoglobin 15.8 g/dL (14-18)
--- NOTE | 2020-02-09 12:05 | P.PN_ITS ---
Subjective Subjective: Interval history: In the last 24-hour: Patient is still requiring heated high flow oxygen via nasal cannula. AM ABG was done: pH 7.44, PCO2 41, PO2 : 107, at FiO2 of 70 Active proning initiated. Patient was also given Lasix 20x1 dose. The plan is to go ahead and decrease the FiO2 to 50%. Based on the a.m. ABG. Vitals: Reviewed, labs: Reviewed Medications: Reviewed: Yes Vitals/I&O/Wt Last Vital Signs Temp 97.5 F L 02/09/20 04:00 Pulse 78 02/09/20 11:36 Resp 16 02/09/20 11:36 BP 132/72 02/09/20 08:00 Pulse Ox 94 02/09/20 11:36 02/08/20 02/09/20 02/09/20 22:59 06:59 14:59 Intake Total 350 / 1650 895 / 2545 310 / 310 Output Total 700 / 3950 450 / 4400 1000 / 1000 Balance -350 / -2300 445 / -1855 -690 / -690 Weight last 48 hrs Weight 83.597 kg Weight 86.364 kg Physical Exam Const: COMMON NORMALS: patient oriented x3 HENMT: COMMON NORMALS: normocephalic, atraumatic, hearing grossly normal bilaterally and external ears normal HEAD & SCALP: normocephalic and atraumatic EXTERNAL EAR: Yes external ears normal Eye: COMMON NORMALS: no scleral icterus GENERAL EYE: appearance normal, both eyes and all related structures Chest: COMMONS NORMALS: normal inspection of the chest and normal palpation of entire chest wall CHEST: Yes Symmetrical chest wall rise Resp: COMMON NORMALS: normal respiratory effort EFFORT & INSPECTION: Yes symmetric chest movement OTHER: Diminished air entry bilaterally, with bilateral rales at the bases. Cardio: COMMON NORMALS: regular rate, regular rhythm, S1 normal heart sound present, S2 normal heart sound present, No gallops present (Cardio), No murmurs present (Cardio), No rub (Cardio) and Peripheral pulses 2+ throughout RATE: regular rate RHYTHM: regular rhythm HEART SOUNDS: S1 normal heart sound present and S2 normal heart sound present PERIPHERAL PULSES: Peripheral pulses 2+ throughout GI: COMMON NORMALS: Normal to inspection, nondistended, normoactive bowel sounds present, Soft to palpation, non-tender, No hepatosplenomegaly present and no masses AUSCULTATION: Yes normoactive bowel sounds PALPATION: Yes Soft to palpation and Yes No hepatosplenomegaly present RECTAL EXAM: Yes deferred Extremity: COMMON NORMALS: no clubbing, cyanosis or edema and no pedal edema Neuro: COMMON NORMALS: patient oriented x3 Urinary Catheter Management^: Rios: Cath Placed During This Visit: yes Reason for Continuing Indwelling Catheter: Accurate Measurement of Urinary Output in Critically Ill Patients Urinary Catheter Date of Insertion: 02/08/20 Urinary Catheter Time of Insertion: 10:00 Data : 02/08/20 03:45 02/09/20 04:15 Micro: Microbiology 02/06/20 16:12 Urine Culture - Final Urine,Clean Catch A&P Assessment and plan (1) Respiratory failure: Acute hypoxic respiratory failure secondary to Covid pneumonia/with superimposed possible bacterial pneumonia. ABG: PH 7.44, PCO2 41, PO2 : 107, at FiO2 of 70 A.m. chest x-ray: No significant change of the bilateral pulmonary infiltrates. Currently on Covid protocol. Also on broad-spectrum anti-abx: Vancomycin, imipenem. Based on the morning we have decided to decrease the FiO2 to 50% Active proning has also been started. Status: Acute (2) COVID-19: Continue antiviral, dexamethasone. He will be getting 10 days total of remdesivir. CTA was negative: But as the D-dimer was extremely high:16.31---->4.59: Patient was started on full dose anticoagulation on Lovenox: 80mg q12 h daily. Status: Acute (3) Trigeminal neuralgia: Continue Neurontin Status: Chronic (4) Hyperlipidemia: Status: Chronic Qualifiers: Hyperlipidemia type: unspecified Qualified Code(s): E78.5 - Hyperlipidemia, unspecified (5) Dementia: Status: Chronic Qualifiers: Dementia behavioral disturbance: without behavioral disturbance Dementia type: unspecified type Qualified Code(s): F03.90 - Unspecified dementia without behavioral disturbance (6) Anxiety: Xanax as needed Status: Chronic Attestations Medical Necessity Statement*: Patient needs to be in hospital for management of Covid pneumonia. Coding Level of Care Code Acute Putty Patcher for [facility] Fwd Exam Comprehensive Diagnoses Respiratory failure J96.90 COVID-19 U07.1 Trigeminal neuralgia G50.0 Hyperlipidemia E78.5 Hyperlipidemia type: unspecified Dementia F03.90 Dementia behavioral disturbance: without behavioral disturbance Dementia type: unspecified type Anxiety F41.9
[2020-02-09] MEDS: trazodone 50 mg Tablet PO (20:36)
[2020-02-09] MEDS: atorvastatin 40 mg Tablet 20 MG PO (20:36)
[2020-02-09] MEDS: ALPRAZolam 0.25 mg Tablet 0.5 MG PO (20:37)
[2020-02-10] VITALS (32 sets, daily range): BP systolic 100–129; BP diastolic 57–79; PULSE 67–99; RESP 16–25; TEMP 36.6–37.1; O2SAT 84–94
[2020-02-10] MEDS: ipratropium-albuterol 3 mL Neb INHALATION ×7 (00:30→23:49)
--- NOTE | 2020-02-10 05:50 | PC.NURSE ---
notified Dr Senior of decrease in daniels output to 50cc from 2200 to 0400. No new orders at this time. Will continue to monitor.
[2020-02-10 05:56] LABS: Basophils # 0.1 10^3/uL (0.0-0.1); Basophils % 0.3 %; Eosinophils % 0.2 %; Hematocrit 43.2 % (42.0-52.0); Hemoglobin 14.9 g/dL (11.7-16.6); Lymphocytes # 0.9 10^3/uL (0.8-4.8); Lymphocytes % 5.2 %; Mean Corpuscular HGB Conc 34.5 g/dL (30.0-36.0); Mean Corpuscular Hemoglobin 32.5 pg (28.0-34.0); Mean Corpuscular Volume 94.3 fL (80-94); Monocytes # 0.8 10^3/uL (0.2-0.9); Monocytes % 4.8 %; Neutrophils # 14.98 10^3/uL (1.8-7.7); Neutrophils % 86.9 %; Nucleated Red Blood Cells % 0 %; Platelet Count 401 10^3/cmm (130-400); Red Blood Count 4.58 10^6/uL (4.1-5.3); Red Cell Distribution Width 11.8 % (12.1-15.1); White Blood Count 17.2 10^3/uL (4.0-10.0)
[2020-02-10 06:16] LABS: Alanine Aminotransferase 23 U/L (0-41); Albumin Level 2.4 g/dL (3.5-5.2); Alkaline Phosphatase 116 IU/L (40-130); Anion Gap 11.8 (5-19); Aspartate Amino Transferase 30 U/L (0-40); Blood Urea Nitrogen 32 mg/dL (8-23); Calcium 8.8 mg/dL (8.5-10.5); Carbon Dioxide 27 mmol/L (22-29); Chloride 100 mmol/L (98-107); Globulin 3.5 g/dL (1.3-4.6); Glucose 101 mg/dL (65-115); Osmolality Calculated 285 mOsm/kg (285-295); Potassium 4.8 mmol/L (3.5-5.1); Sodium 134 mmol/L (136-145); Total Bilirubin 0.6 mg/dL (0.15-1.2); Total Protein 5.9 g/dL (6.6-8.7)
[2020-02-10] MEDS: budesonide 0.5 mg/2 mL Neb INHALATION ×2 (07:45→19:57)
[2020-02-10] MEDS: pantoprazole DR 40 mg Tablet PO (08:22)
[2020-02-10] MEDS: clopidogrel 75 mg Tablet PO (08:22)
[2020-02-10] MEDS: dexamethasone 4 mg/mL INJ 6 MG IVP (08:22)
[2020-02-10] MEDS: memantine 5 mg tablet 10 MG PO ×2 (08:22→17:36)
[2020-02-10] MEDS: gabapentin 400 mg Capsule PO ×3 (08:22→21:18)
[2020-02-10] MEDS: loratadine 10 mg Tablet PO (08:22)
[2020-02-10] MEDS: ascorbic acid 500 mg Tablet PO ×2 (08:22→17:36)
[2020-02-10] MEDS: donepezil 5 MG Tablet 10 MG PO (08:22)
[2020-02-10] MEDS: zinc gluconate 50 mg Tablet PO (08:22)
[2020-02-10 10:16] LABS: Vancomycin Trough 21.7 ug/mL (10-15)
[2020-02-10 10:21] LABS: ABG PCO2 38.3 mmHg (35-45); ABG PH Result 7.48 (7.35-7.45); Arterial Blood Gas Hematocrit 48.4 % (42-52); Base Excess ABG 4.4 mmol/L (-2.0-2.0); Blood Gas Allen Test Pos; Blood Gas Operator Identificat AH; Blood Gas Sample Site Radial, right; Blood Gas Sample Type Arterial; Carboxyhemoglobin 0.9 %THgb (0.4-20.1); HCO3 ABG 28.2 mmol/L (22-26); Ionized Calcium Level - ABG 1.2 mmol/L (1.1-1.4); Methemoglobin 0.7 % (0.4-1.5); Oxygen Saturation ABG 91.5; PO2 ABG 57.9 mmHg (80.0-100.0); Potassium Level - ABG 4.3 mmol/L (3.5-5.0); Total Hemoglobin 15.8 g/dL (14-18)
[2020-02-10] MEDS: enoxaparin 80 mg/0.8 mL Syringe SUBCUT ×2 (11:13→21:18)
--- NOTE | 2020-02-10 16:13 | PM.PN ---
Subjective Subjective: Interval history: Our attempt to decrease the FiO2 70% has failed as he was desaturating, he is back to 75% FiO2 through heated high flow oxygen via nasal cannula. Patient is cooperative with proning. Vitals and labs have been reviewed. Medications: Reviewed: Yes Vitals/I&O/Wt Last Vital Signs Temp 98.3 F 02/10/20 12:00 Pulse 78 02/10/20 15:38 Resp 18 02/10/20 15:02 BP 116/72 02/10/20 13:00 Pulse Ox 94 02/10/20 15:38 02/10/20 02/10/20 02/10/20 06:59 14:59 22:59 Intake Total 1137 / 1887 200 / 200 Output Total 50 / 2200 350 / 350 Balance 1087 / -313 -150 / -150 Weight last 48 hrs Weight 83.461 kg Weight 83.597 kg Physical Exam Const: COMMON NORMALS: patient oriented x3 HENMT: COMMON NORMALS: normocephalic, atraumatic, hearing grossly normal bilaterally and external ears normal HEAD & SCALP: normocephalic and atraumatic EXTERNAL EAR: Yes external ears normal Eye: COMMON NORMALS: no scleral icterus GENERAL EYE: appearance normal, both eyes and all related structures Chest: COMMONS NORMALS: normal inspection of the chest and normal palpation of entire chest wall CHEST: Yes Symmetrical chest wall rise Resp: COMMON NORMALS: normal respiratory effort, No retractions and No use of accessory muscles EFFORT & INSPECTION: Yes symmetric chest movement OTHER: Diminished air entry bilaterally with minimal bilateral basal rales Cardio: COMMON NORMALS: regular rate, regular rhythm, S1 normal heart sound present, S2 normal heart sound present, No gallops present (Cardio), No murmurs present (Cardio), No rub (Cardio) and Peripheral pulses 2+ throughout RATE: regular rate RHYTHM: regular rhythm HEART SOUNDS: S1 normal heart sound present and S2 normal heart sound present PERIPHERAL PULSES: Peripheral pulses 2+ throughout GI: COMMON NORMALS: Normal to inspection, nondistended, normoactive bowel sounds present, Soft to palpation, non-tender, No hepatosplenomegaly present and no masses AUSCULTATION: Yes normoactive bowel sounds PALPATION: Yes Soft to palpation and Yes No hepatosplenomegaly present RECTAL EXAM: Yes deferred Extremity: COMMON NORMALS: no clubbing, cyanosis or edema and no pedal edema Neuro: COMMON NORMALS: patient oriented x3 Urinary Catheter Management^: Rios: Cath Placed During This Visit: yes Reason for Continuing Indwelling Catheter: Accurate Measurement of Urinary Output in Critically Ill Patients Urinary Catheter Date of Insertion: 02/08/20 Urinary Catheter Time of Insertion: 10:00 Data : 02/10/20 04:30 02/10/20 04:30 A&P Assessment and plan (1) Respiratory failure: Acute hypoxic respiratory failure secondary to Covid pneumonia/with superimposed possible bacterial pneumonia. Currently on Covid protocol.(Remdesivir: 01/30-02/08 ) and dexamethasone) with full anticogulation ( lovenox 80 mg sc q12 h daily ) Also on broad-spectrum anti-abx: Vancomycin, imipenem. We will get Lasix 40 mg IV x1 today. Active proning has also been started. Current plan is to give him convalescent plasma today. We had a detailed discussion with the daughter and she has agreed to go ahead and give the convalescent plasma. Side effects been explained to her in detail. Status: Acute (2) COVID-19: Completed 10 days of remdesivir, dexamethasone. CTA was negative: But as the D-dimer was extremely high:16.31---->4.59: Patient was started on full dose anticoagulation on Lovenox: 80mg q12 h daily. Status: Acute (3) Trigeminal neuralgia: Continue Neurontin Status: Chronic (4) Hyperlipidemia: Status: Chronic Qualifiers: Hyperlipidemia type: unspecified Qualified Code(s): E78.5 - Hyperlipidemia, unspecified (5) Dementia: Status: Chronic Qualifiers: Dementia type: unspecified type Dementia behavioral disturbance: without behavioral disturbance Qualified Code(s): F03.90 - Unspecified dementia without behavioral disturbance (6) Anxiety: Xanax as needed Status: Chronic Additional A&P Information Obstructive sleep apnea. CPAP while sleeping Lovenox for DVT prophylaxis Full code Attestations Medical Necessity Statement*: Patient needs to be in hospital for management of Covid pneumonia. Coding Level of Care Code Acute Ordnance Truck Installation Supervisor for [facility] Diagnoses Respiratory failure J96.90 COVID-19 U07.1 Trigeminal neuralgia G50.0 Hyperlipidemia E78.5 Hyperlipidemia type: unspecified Dementia F03.90 Dementia type: unspecified type Dementia behavioral disturbance: without behavioral disturbance Anxiety F41.9
[2020-02-10] MEDS: FUROsemide 10 mg/mL SDV 4mL 40 MG IVP (16:18)
[2020-02-10] MEDS: atorvastatin 40 mg Tablet 20 MG PO (21:18)
[2020-02-10] MEDS: trazodone 50 mg Tablet PO (21:18)
[2020-02-10] MEDS: ALPRAZolam 0.25 mg Tablet 0.5 MG PO (21:18)
[2020-02-11] VITALS (44 sets, daily range): BP systolic 107–145; BP diastolic 56–89; PULSE 74–106; RESP 13–25; TEMP 36.3–37; O2SAT 87–96
[2020-02-11] MEDS: ipratropium-albuterol 3 mL Neb INHALATION ×6 (03:40→23:18)
[2020-02-11] MEDS: budesonide 0.5 mg/2 mL Neb INHALATION ×2 (07:45→20:23)
[2020-02-11 08:36] LABS: Alanine Aminotransferase 23 U/L (0-41); Albumin Level 2.4 g/dL (3.5-5.2); Alkaline Phosphatase 119 IU/L (40-130); Anion Gap 13.8 (5-19); Aspartate Amino Transferase 26 U/L (0-40); Blood Urea Nitrogen 35 mg/dL (8-23); Calcium 8.5 mg/dL (8.5-10.5); Carbon Dioxide 27 mmol/L (22-29); Chloride 100 mmol/L (98-107); Globulin 3.6 g/dL (1.3-4.6); Glucose 140 mg/dL (65-115); Osmolality Calculated 292 mOsm/kg (285-295); Potassium 4.8 mmol/L (3.5-5.1); Sodium 136 mmol/L (136-145); Total Bilirubin 0.6 mg/dL (0.15-1.2)
[2020-02-11] MEDS: donepezil 5 MG Tablet 10 MG PO (09:11)
[2020-02-11] MEDS: pantoprazole DR 40 mg Tablet PO (09:11)
[2020-02-11] MEDS: ascorbic acid 500 mg Tablet PO ×2 (09:11→18:10)
[2020-02-11] MEDS: zinc gluconate 50 mg Tablet PO (09:11)
[2020-02-11] MEDS: loratadine 10 mg Tablet PO (09:11)
[2020-02-11] MEDS: gabapentin 400 mg Capsule PO ×3 (09:11→20:35)
[2020-02-11] MEDS: clopidogrel 75 mg Tablet PO (09:11)
[2020-02-11] MEDS: enoxaparin 80 mg/0.8 mL Syringe SUBCUT ×2 (09:12→20:35)
[2020-02-11] MEDS: dexamethasone 4 mg/mL INJ 6 MG IVP (09:12)
[2020-02-11] MEDS: memantine 5 mg tablet 10 MG PO ×2 (09:12→18:10)
[2020-02-11 10:06] LABS: ABG PH Result 7.48 (7.35-7.45); Arterial Blood Gas Hematocrit 56.9 % (42-52); Base Excess ABG 4.3 mmol/L (-2.0-2.0); Blood Gas Allen Test Pos; Blood Gas Sample Type Arterial; PO2 ABG 56.7 mmHg (80.0-100.0)
[2020-02-11 10:09] LABS: Oxygen Device HHFNC
[2020-02-11 10:27] LABS: Basophils # 0.1 10^3/uL (0.0-0.1); Basophils % 0.6 %; Eosinophils % 0.2 %; Hematocrit 51.4 % (42.0-52.0); Lymphocytes % 5.5 %; Mean Corpuscular HGB Conc 33.1 g/dL (30.0-36.0); Mean Corpuscular Volume 96.8 fL (80-94); Mean Platelet Volume 8.8 fL (7.4-10.4); Monocytes # 0.6 10^3/uL (0.2-0.9); Monocytes % 3.5 %; Neutrophils # 15.15 10^3/uL (1.8-7.7); Neutrophils % 87.1 %; Nucleated Red Blood Cells % 0 %; Platelet Count 417 10^3/cmm (130-400); Red Blood Count 5.31 10^6/uL (4.1-5.3); Red Cell Distribution Width 11.9 % (12.1-15.1); White Blood Count 17.4 10^3/uL (4.0-10.0)
--- NOTE | 2020-02-11 10:28 | PM.PN ---
Subjective Subjective: Interval history: Patient is still requiring high flow oxygen through nasal cannula supplemental oxygen requirement is going down, he has been brought down from 75% FiO2 to 65% FiO2, this a.m. Patient is currently comfortable on high flow oxygen through nasal cannula. Vitals and labs have been reviewed. AM ABG: pH 7.48, PCO2 38, PO2 56, FiO2: 65%, P/F:56/0.65 Medications: Reviewed: Yes Vitals/I&O/Wt Last Vital Signs Temp 97.9 F 02/11/20 10:19 Pulse 91 02/11/20 10:19 Resp 18 02/11/20 10:19 BP 128/75 02/11/20 10:19 Pulse Ox 94 02/11/20 10:19 02/10/20 02/11/20 02/11/20 22:59 06:59 14:59 Intake Total 1050 / 1450 1385 / 2835 0 / 0 Output Total 2350 / 2900 300 / 3200 Balance -1300 / -1450 1085 / -365 0 / 0 Weight last 48 hrs Weight 81.783 kg Weight 83.461 kg Physical Exam Const: COMMON NORMALS: patient oriented x3 HENMT: COMMON NORMALS: normocephalic, atraumatic, hearing grossly normal bilaterally and external ears normal HEAD & SCALP: normocephalic and atraumatic EXTERNAL EAR: Yes external ears normal Eye: COMMON NORMALS: no scleral icterus GENERAL EYE: appearance normal, both eyes and all related structures Chest: COMMONS NORMALS: normal inspection of the chest and normal palpation of entire chest wall CHEST: Yes Symmetrical chest wall rise Resp: COMMON NORMALS: normal respiratory effort, No retractions, No use of accessory muscles and clear to auscultation bilaterally EFFORT & INSPECTION: Yes symmetric chest movement AUSCULTATION: clear to auscultation bilaterally OTHER: Diminished air entry bilaterally with minimal bilateral basal rales Cardio: COMMON NORMALS: regular rate, regular rhythm, S1 normal heart sound present, S2 normal heart sound present, No gallops present (Cardio), No murmurs present (Cardio), No rub (Cardio) and Peripheral pulses 2+ throughout RATE: regular rate RHYTHM: regular rhythm HEART SOUNDS: S1 normal heart sound present and S2 normal heart sound present PERIPHERAL PULSES: Peripheral pulses 2+ throughout GI: COMMON NORMALS: Normal to inspection, nondistended, normoactive bowel sounds present, Soft to palpation, non-tender, No hepatosplenomegaly present and no masses AUSCULTATION: Yes normoactive bowel sounds PALPATION: Yes Soft to palpation and Yes No hepatosplenomegaly present RECTAL EXAM: Yes deferred Extremity: COMMON NORMALS: no clubbing, cyanosis or edema and no pedal edema Neuro: COMMON NORMALS: patient oriented x3 Urinary Catheter Management^: Rios: Cath Placed During This Visit: yes Reason for Continuing Indwelling Catheter: Accurate Measurement of Urinary Output in Critically Ill Patients Urinary Catheter Date of Insertion: 02/08/20 Urinary Catheter Time of Insertion: 10:00 Data : 02/11/20 09:30 02/11/20 07:50 A&P Assessment and plan (1) Respiratory failure: Acute hypoxic respiratory failure secondary to Covid pneumonia/with superimposed possible bacterial pneumonia. Currently on Covid protocol.(Remdesivir: 01/30-02/08 ) and continue dexamethasone with full anticogulation ( lovenox 80 mg sc q12 h daily ) Also on broad-spectrum anti-abx: Vancomycin, imipenem. Lasix 40 mg IV x1 today. Convalescent plasma 200 cc x1 dose today Continue active proning Status: Acute (2) COVID-19: Completed 10 days of remdesivir, on dexamethasone. CTA was negative: But as the D-dimer was extremely high:16.31---->4.59: Patient was started on full dose anticoagulation on Lovenox: 80mg q12 h daily. Status: Acute (3) Trigeminal neuralgia: Continue Neurontin Status: Chronic (4) Hyperlipidemia: Status: Chronic Qualifiers: Hyperlipidemia type: unspecified Qualified Code(s): E78.5 - Hyperlipidemia, unspecified (5) Dementia: Status: Chronic Qualifiers: Dementia behavioral disturbance: without behavioral disturbance Dementia type: unspecified type Qualified Code(s): F03.90 - Unspecified dementia without behavioral disturbance (6) Anxiety: Xanax as needed Status: Chronic Additional A&P Information Obstructive sleep apnea. CPAP while sleeping Lovenox for DVT prophylaxis Full code Attestations Medical Necessity Statement*: Patient needs to be in hospital for management of acute hypoxic respiratory failure due to Covid pneumonia. Coding Level of Care Code Acute Early Childhood Services Coordinator for [facility] Fwd Exam Comprehensive Diagnoses Respiratory failure J96.90 COVID-19 U07.1 Trigeminal neuralgia G50.0 Hyperlipidemia E78.5 Hyperlipidemia type: unspecified Dementia F03.90 Dementia behavioral disturbance: without behavioral disturbance Dementia type: unspecified type Anxiety F41.9
[2020-02-11] MEDS: sodium chloride 0.9% 100 mL Bag IV (10:36)
--- NOTE | 2020-02-11 11:41 | PC.SOCIAL ---
IMM Updated Updated pt's on Pg 2 IMM via phone. No questions voiced. Signed, dated, & timed copy in chart.
[2020-02-11 13:49] LABS: Vancomycin Trough 17.1 ug/mL (10-15)
[2020-02-11] MEDS: trazodone 50 mg Tablet PO (20:35)
[2020-02-11] MEDS: ALPRAZolam 0.25 mg Tablet 0.5 MG PO (20:35)
[2020-02-11] MEDS: atorvastatin 40 mg Tablet 20 MG PO (20:35)
[2020-02-12] VITALS (38 sets, daily range): BP systolic 98–130; BP diastolic 65–86; PULSE 74–109; RESP 13–25; TEMP 36.6–36.9; O2SAT 86–95
[2020-02-12] MEDS: ipratropium-albuterol 3 mL Neb INHALATION ×5 (03:20→21:31)
[2020-02-12 05:13] LABS: Basophils # 0.1 10^3/uL (0.0-0.1); Basophils % 0.4 %; Eosinophils # 0.1 10^3/uL (0.0-0.8); Eosinophils % 0.5 %; Hematocrit 44.6 % (42.0-52.0); Hemoglobin 14.4 g/dL (11.7-16.6); Lymphocytes # 0.8 10^3/uL (0.8-4.8); Lymphocytes % 4.4 %; Mean Corpuscular HGB Conc 32.3 g/dL (30.0-36.0); Mean Corpuscular Hemoglobin 31.6 pg (28.0-34.0); Monocytes % 5.2 %; Neutrophils % 86.5 %; Nucleated Red Blood Cells % 0 %; Platelet Count 362 10^3/cmm (130-400); Red Blood Count 4.55 10^6/uL (4.1-5.3); Red Cell Distribution Width 11.8 % (12.1-15.1); White Blood Count 19.3 10^3/uL (4.0-10.0)
[2020-02-12 05:41] LABS: Alanine Aminotransferase 26 U/L (0-41); Albumin Level 2.2 g/dL (3.5-5.2); Alkaline Phosphatase 120 IU/L (40-130); Anion Gap 12.5 (5-19); Aspartate Amino Transferase 27 U/L (0-40); Blood Urea Nitrogen 29 mg/dL (8-23); Calcium 8.5 mg/dL (8.5-10.5); Carbon Dioxide 27 mmol/L (22-29); Chloride 100 mmol/L (98-107); Globulin 3.7 g/dL (1.3-4.6); Glucose 109 mg/dL (65-115); Osmolality Calculated 286 mOsm/kg (285-295); Potassium 4.5 mmol/L (3.5-5.1); Sodium 135 mmol/L (136-145); Total Bilirubin 0.5 mg/dL (0.15-1.2); Total Protein 5.9 g/dL (6.6-8.7)
[2020-02-12] MEDS: budesonide 0.5 mg/2 mL Neb INHALATION ×2 (07:35→21:31)
[2020-02-12] MEDS: zinc gluconate 50 mg Tablet PO (08:19)
[2020-02-12] MEDS: ascorbic acid 500 mg Tablet PO ×2 (08:20→17:29)
[2020-02-12] MEDS: gabapentin 400 mg Capsule PO ×3 (08:20→20:55)
[2020-02-12] MEDS: memantine 5 mg tablet 10 MG PO ×2 (08:20→17:29)
[2020-02-12] MEDS: loratadine 10 mg Tablet PO (08:20)
[2020-02-12] MEDS: clopidogrel 75 mg Tablet PO (08:21)
[2020-02-12] MEDS: pantoprazole DR 40 mg Tablet PO (08:21)
[2020-02-12] MEDS: donepezil 5 MG Tablet 10 MG PO (08:22)
[2020-02-12] MEDS: dexamethasone 4 mg/mL INJ 6 MG IVP (08:22)
[2020-02-12] MEDS: enoxaparin 80 mg/0.8 mL Syringe SUBCUT ×2 (08:30→20:55)
[2020-02-12] MEDS: FUROsemide 10 mg/mL SDV 4mL 40 MG IVP ×2 (09:49→18:04)
[2020-02-12 11:35] LABS: ABG PCO2 36.9 mmHg (35-45); ABG PH Result 7.48 (7.35-7.45); Alveolar-Arterial Oxygen Gradi 47.1 mmHg (5-10); Arterial Blood Gas Hematocrit 47.8 % (42-52); Base Excess ABG 3.7 mmol/L (-2.0-2.0); Blood Gas Allen Test Pos; Blood Gas Sample Type Arterial; HCO3 ABG 27.3 mmol/L (22-26); HGB O2 Sat 89.6 % (95-100); Ionized Calcium Level - ABG 1.2 mmol/L (1.1-1.4); Methemoglobin 0.7 % (0.4-1.5); Oxygen Saturation ABG 91.1; PO2 ABG 56.1 mmHg (80.0-100.0); Potassium Level - ABG 4.2 mmol/L (3.5-5.0); Total Hemoglobin 15.6 g/dL (14-18)
[2020-02-12 11:37] LABS: Oxygen Device HHFNC
--- NOTE | 2020-02-12 12:03 | PM.PN ---
Subjective Subjective: Interval history: Patient received 1 dose of convalescent plasma: 200 cc: Yesterday: No allergic reaction noted. AM ABG: pH: 7.48, PCO2: 36, PO2: 56, FiO2: 65% PF ratio: 65/0.65. Patient has remained afebrile, hemodynamically stable. Labs have been reviewed Medications: Reviewed: Yes Vitals/I&O/Wt Last Vital Signs Temp 98.3 F 02/12/20 07:29 Pulse 89 02/12/20 07:35 Resp 16 02/12/20 07:35 BP 129/74 02/12/20 07:29 Pulse Ox 94 02/12/20 07:35 02/11/20 02/12/20 02/12/20 22:59 06:59 14:59 Intake Total 1100 / 1600 160 / 1760 580 / 580 Output Total 1000 / 1000 400 / 1400 Balance 100 / 600 -240 / 360 580 / 580 Weight last 48 hrs Weight 82.554 kg Weight 81.783 kg Physical Exam Narrative: EXAM NARRATIVE: Const COMMON NORMALS: patient oriented x3 [facility] COMMON NORMALS: normocephalic, atraumatic, hearing grossly normal bilaterally and external ears normal HEAD & SCALP: normocephalic and atraumatic EXTERNAL EAR: Yes external ears normal Eye COMMON NORMALS: no scleral icterus GENERAL EYE: appearance normal, both eyes and all related structures Chest COMMONS NORMALS: normal inspection of the chest and normal palpation of entire chest wall CHEST: Yes Symmetrical chest wall rise Resp COMMON NORMALS: normal respiratory effort, No retractions, No use of accessory muscles and clear to auscultation bilaterally EFFORT & INSPECTION: Yes symmetric chest movement AUSCULTATION: clear to auscultation bilaterally OTHER: Diminished air entry bilaterally with minimal bilateral basal rales Cardio COMMON NORMALS: regular rate, regular rhythm, S1 normal heart sound present, S2 normal heart sound present, No gallops present (Cardio), No murmurs present (Cardio), No rub (Cardio) and Peripheral pulses 2+ throughout RATE: regular rate RHYTHM: regular rhythm HEART SOUNDS: S1 normal heart sound present and S2 normal heart sound present PERIPHERAL PULSES: Peripheral pulses 2+ throughout GI COMMON NORMALS: Normal to inspection, nondistended, normoactive bowel sounds present, Soft to palpation, non-tender, No hepatosplenomegaly present and no masses AUSCULTATION: Yes normoactive bowel sounds PALPATION: Yes Soft to palpation and Yes No hepatosplenomegaly present RECTAL EXAM: Yes deferred Extremity COMMON NORMALS: no clubbing, cyanosis or edema and no pedal edema Neuro COMMON NORMALS: patient oriented x3 Const: COMMON NORMALS: patient oriented x3 HENMT: COMMON NORMALS: normocephalic, atraumatic, hearing grossly normal bilaterally and external ears normal HEAD & SCALP: normocephalic and atraumatic EXTERNAL EAR: Yes external ears normal Eye: COMMON NORMALS: no scleral icterus GENERAL EYE: appearance normal, both eyes and all related structures Chest: COMMONS NORMALS: normal inspection of the chest and normal palpation of entire chest wall CHEST: Yes Symmetrical chest wall rise Resp: COMMON NORMALS: normal respiratory effort, No retractions, No use of accessory muscles and clear to auscultation bilaterally EFFORT & INSPECTION: Yes symmetric chest movement AUSCULTATION: clear to auscultation bilaterally OTHER: Diminished air entry bilaterally with minimal bilateral basal rales Cardio: COMMON NORMALS: regular rate, regular rhythm, S1 normal heart sound present, S2 normal heart sound present, No gallops present (Cardio), No murmurs present (Cardio), No rub (Cardio) and Peripheral pulses 2+ throughout RATE: regular rate RHYTHM: regular rhythm HEART SOUNDS: S1 normal heart sound present and S2 normal heart sound present PERIPHERAL PULSES: Peripheral pulses 2+ throughout GI: COMMON NORMALS: Normal to inspection, nondistended, normoactive bowel sounds present, Soft to palpation, non-tender, No hepatosplenomegaly present and no masses AUSCULTATION: Yes normoactive bowel sounds PALPATION: Yes Soft to palpation and Yes No hepatosplenomegaly present RECTAL EXAM: Yes deferred Extremity: COMMON NORMALS: no clubbing, cyanosis or edema and no pedal edema Neuro: COMMON NORMALS: patient oriented x3 Urinary Catheter Management^: Rios: Cath Placed During This Visit: yes Reason for Continuing Indwelling Catheter: Accurate Measurement of Urinary Output in Critically Ill Patients Urinary Catheter Date of Insertion: 02/08/20 Urinary Catheter Time of Insertion: 10:00 Data : 02/12/20 04:20 02/12/20 04:20 A&P Assessment and plan (1) Respiratory failure: Acute hypoxic respiratory failure secondary to Covid pneumonia/with superimposed possible bacterial pneumonia. Currently on Covid protocol.(Remdesivir: 01/30-02/08 )Continue dexamethasone with full anticogulation ( lovenox 80 mg sc q12 h daily ) Also on broad-spectrum anti-abx: Vancomycin, imipenem. Lasix 40 mg IV x2 today. Convalescent plasma 200 cc x1 dose given on 02/10 Continue active proning Status: Acute (2) COVID-19: Completed 10 days of remdesivir, on dexamethasone. CTA was negative: But as the D-dimer was extremely high:16.31---->4.59: Patient was started on full dose anticoagulation on Lovenox: 80mg q12 h daily. Status: Acute (3) Trigeminal neuralgia: Continue Neurontin Status: Chronic (4) Hyperlipidemia: Status: Chronic Qualifiers: Hyperlipidemia type: unspecified Qualified Code(s): E78.5 - Hyperlipidemia, unspecified (5) Dementia: Status: Chronic Qualifiers: Dementia type: unspecified type Dementia behavioral disturbance: without behavioral disturbance Qualified Code(s): F03.90 - Unspecified dementia without behavioral disturbance (6) Anxiety: Xanax as needed Status: Chronic Additional A&P Information Obstructive sleep apnea. CPAP while sleeping Lovenox for DVT prophylaxis Full code Attestations Medical Necessity Statement*: Patient needs to be in hospital for management of Covid pneumonia. Coding Level of Care Code Acute Customer Operations Representative for Cory Gamino Diagnoses Respiratory failure J96.90 COVID-19 U07.1 Trigeminal neuralgia G50.0 Hyperlipidemia E78.5 Hyperlipidemia type: unspecified Dementia F03.90 Dementia type: unspecified type Dementia behavioral disturbance: without behavioral disturbance Anxiety F41.9
--- NOTE | 2020-02-12 15:47 | PC.NURSE ---
Patient assisted from chair back to bed, SBA. Tolerated well. Patient o2 sats dropped to mid 80s on 12L. Sats recovered to low 90s on 12L once settled in bed. Bed in low locked position, belongings and call light within reach. Nurse to continue to monitor.
--- NOTE | 2020-02-12 19:04 | PC.NURSE ---
Shift Summary Rest of shift uneventful. Patient sat in chair for 2 hours and tolerated activity well. Patient now on 7L NC sats 89%. Verbal order from Dr. Arriola to keep O2 sats 85-90%., RBVO. No needs identified at this time. Nurse to continue to monitor.
[2020-02-12] MEDS: atorvastatin 40 mg Tablet 20 MG PO (20:54)
[2020-02-12] MEDS: acetaminophen 325 mg Tablet 650 MG PO (20:55)
[2020-02-12] MEDS: trazodone 50 mg Tablet PO (20:55)
[2020-02-12] MEDS: ALPRAZolam 0.25 mg Tablet 0.5 MG PO (20:56)
[2020-02-13] VITALS (34 sets, daily range): BP systolic 79–135; BP diastolic 55–78; PULSE 79–108; RESP 15–36; TEMP 36.6–36.9; O2SAT 83–95; BMI 25.4
[2020-02-13] MEDS: ipratropium-albuterol 3 mL Neb INHALATION ×5 (01:15→19:34)
[2020-02-13 04:25] LABS: ABG PCO2 42.7 mmHg (35-45); ABG PH Result 7.49 (7.35-7.45); Arterial Blood Gas Hematocrit 47.4 % (42-52); Blood Gas Operator Identificat HARKR; Blood Gas Sample Site Brachial, right; Blood Gas Sample Type Arterial; HCO3 ABG 32.3 mmol/L (22-26); PO2 ABG 55.3 mmHg (80.0-100.0)
[2020-02-13 04:28] LABS: Oxygen Device HHFNC
[2020-02-13 05:34] LABS: Basophils # 0.1 10^3/uL (0.0-0.1); Basophils % 0.5 %; Eosinophils # 0.1 10^3/uL (0.0-0.8); Eosinophils % 0.9 %; Hematocrit 44.7 % (42.0-52.0); Lymphocytes # 1.3 10^3/uL (0.8-4.8); Lymphocytes % 8.2 %; Mean Corpuscular HGB Conc 33.6 g/dL (30.0-36.0); Mean Corpuscular Hemoglobin 31.8 pg (28.0-34.0); Mean Corpuscular Volume 94.7 fL (80-94); Mean Platelet Volume 9.4 fL (7.4-10.4); Monocytes # 0.9 10^3/uL (0.2-0.9); Monocytes % 5.8 %; Neutrophils % 80.8 %; Nucleated Red Blood Cells % 0 %; Platelet Count 395 10^3/cmm (130-400); Red Blood Count 4.72 10^6/uL (4.1-5.3); Red Cell Distribution Width 11.7 % (12.1-15.1); White Blood Count 15.5 10^3/uL (4.0-10.0)
--- NOTE | 2020-02-13 06:00 | XRR_ITS ---
PROCEDURE INFORMATION: Exam: XR Chest, 1 View Exam date and time: 02/13/2020 5:18 AM Age: 79 years old Clinical indication: Shortness of breath; Additional info: Pna, covid, chest pain TECHNIQUE: Imaging protocol: XR of the chest Views: 1 view. COMPARISON: CR XR chest 1V portable [id number] 02/09/2020 8:05 AM FINDINGS: Lungs: Bilateral pneumonia is present especially on the left side. The consolidation in the left lung has worsened when compared to 02/09/2020. Pleural space: Unremarkable. No pleural effusion. No pneumothorax. Heart/Mediastinum: The patient has undergone coronary bypass surgery. The heart is not enlarged. Bones/joints: Unremarkable. XR/XR chest 1V portable [id number] IMPRESSION: Bilateral pneumonia worsening in the left lung.
--- NOTE | 2020-02-13 06:32 | PC.NURSE ---
patient PO2 back at 54 respiratory down at change of shift to adjust oxygen levels. up to 55L AND 70% VIA HIGH FLOW.
[2020-02-13] MEDS: memantine 5 mg tablet 10 MG PO ×2 (08:21→17:34)
[2020-02-13] MEDS: loratadine 10 mg Tablet PO (08:21)
[2020-02-13] MEDS: gabapentin 400 mg Capsule PO ×3 (08:21→20:51)
[2020-02-13] MEDS: donepezil 5 MG Tablet 10 MG PO (08:21)
[2020-02-13] MEDS: budesonide 0.5 mg/2 mL Neb INHALATION ×2 (08:23→19:34)
[2020-02-13] MEDS: zinc gluconate 50 mg Tablet PO (08:30)
[2020-02-13] MEDS: dexamethasone 4 mg/mL INJ 6 MG IVP (08:30)
[2020-02-13] MEDS: enoxaparin 80 mg/0.8 mL Syringe SUBCUT ×2 (08:30→20:51)
[2020-02-13] MEDS: clopidogrel 75 mg Tablet PO (08:30)
[2020-02-13] MEDS: ascorbic acid 500 mg Tablet PO ×2 (08:30→17:41)
[2020-02-13] MEDS: pantoprazole DR 40 mg Tablet PO (08:30)
[2020-02-13 08:54] LABS: Alanine Aminotransferase 35 U/L (0-41); Albumin Level 2.8 g/dL (3.5-5.2); Alkaline Phosphatase 122 IU/L (40-130); Anion Gap 11.4 (5-19); Aspartate Amino Transferase 31 U/L (0-40); Blood Urea Nitrogen 33 mg/dL (8-23); Carbon Dioxide 33 mmol/L (22-29); Chloride 95 mmol/L (98-107); Globulin 3.9 g/dL (1.3-4.6); Glucose 138 mg/dL (65-115); Osmolality Calculated 289 mOsm/kg (285-295); Potassium 4.4 mmol/L (3.5-5.1); Sodium 135 mmol/L (136-145); Total Bilirubin 0.6 mg/dL (0.15-1.2); Total Protein 6.7 g/dL (6.6-8.7)
--- NOTE | 2020-02-13 11:39 | P.PN_ITS ---
Subjective Subjective: Interval history: Patient is currently on 10 L of oxygen through nasal he is saturating around 90%. 2D echo has been ordered today to assess for other possible causes of shortness of breath. We have also ordered repeat blood cultures, and sputum culture. As x-ray chest is suggestive of Bilateral pneumonia worsening in the left lung. Vitals and labs have been reviewed. Medications: Reviewed: Yes Vitals/I&O/Wt Last Vital Signs Temp 97.8 F 02/13/20 11:00 Pulse 104 H 02/13/20 11:18 Resp 22 H 02/13/20 11:10 BP 102/78 02/13/20 11:00 Pulse Ox 92 02/13/20 11:10 02/12/20 02/13/20 02/13/20 22:59 06:59 14:59 Intake Total 650 / 1330 100 / 1430 1310 / 1310 Output Total 950 / 2925 1100 / 4025 Balance -300 / -1595 -1000 / -2595 1310 / 1310 Weight last 48 hrs Weight 82.554 kg Weight 82.554 kg Physical Exam Const: COMMON NORMALS: patient oriented x3 HENMT: COMMON NORMALS: normocephalic, atraumatic, hearing grossly normal bilaterally and external ears normal HEAD & SCALP: normocephalic and atraumatic EXTERNAL EAR: Yes external ears normal Eye: COMMON NORMALS: no scleral icterus GENERAL EYE: appearance normal, both eyes and all related structures Chest: COMMONS NORMALS: normal inspection of the chest and normal palpation of entire chest wall CHEST: Yes Symmetrical chest wall rise Resp: COMMON NORMALS: normal respiratory effort, No retractions, No use of accessory muscles and clear to auscultation bilaterally EFFORT & INSPECTION: Yes able to speak in complete sentences, Yes symmetric chest movement, Yes tachypneic and Yes respiratory distress AUSCULTATION: clear to auscultation bilaterally OTHER: B/l crackles, present in both lung field. Occasional expiratory wheeze, Cardio: COMMON NORMALS: regular rate, regular rhythm, S1 normal heart sound present, S2 normal heart sound present, No gallops present (Cardio), No murmurs present (Cardio), No rub (Cardio) and Peripheral pulses 2+ throughout RATE: regular rate RHYTHM: regular rhythm HEART SOUNDS: S1 normal heart sound present and S2 normal heart sound present PERIPHERAL PULSES: Peripheral pulses 2+ throughout GI: COMMON NORMALS: Normal to inspection, nondistended, normoactive bowel coco nds present, Soft to palpation, non-tender, No hepatosplenomegaly present and no masses AUSCULTATION: Yes normoactive bowel sounds PALPATION: Yes Soft to palpation and Yes No hepatosplenomegaly present RECTAL EXAM: Yes deferred Extremity: COMMON NORMALS: no clubbing, cyanosis or edema and no pedal edema Neuro: COMMON NORMALS: patient oriented x3 Urinary Catheter Management^: Rios: Cath Placed During This Visit: yes Reason for Continuing Indwelling Catheter: Accurate Measurement of Urinary Output in Critically Ill Patients Urinary Catheter Date of Insertion: 02/08/20 Urinary Catheter Time of Insertion: 10:00 Data : 02/13/20 04:37 02/13/20 08:18 A&P Assessment and plan (1) Respiratory failure: Acute hypoxic respiratory failure secondary to Covid pneumonia/with superimposed possible bacterial pneumonia. Currently on Covid protocol.(Remdesivir: 01/30-02/08 )Continue dexamethasone with full anticogulation ( lovenox 80 mg sc q12 h daily ) Also on broad-spectrum anti-abx: Vancomycin, imipenem. Azithromycin was added on 1023: For possible atypical coverage. Repeat blood culture, and sputum culture have been. 2D echo has been ordered Lasix 20 mg IV x1 today. Convalescent plasma 200 cc x1 dose given on 02/10 Continue active proning Status: Acute (2) COVID-19: Completed 10 days of remdesivir, on dexamethasone. CTA was negative: But as the D-dimer was extremely high:16.31---->4.59: Patient was started on full dose anticoagulation on Lovenox: 80mg q12 h daily. Status: Acute (3) Trigeminal neuralgia: Continue Neurontin Status: Chronic (4) Hyperlipidemia: Status: Chronic Qualifiers: Hyperlipidemia type: unspecified Qualified Code(s): E78.5 - Hyperlipidemia, unspecified (5) Dementia: Status: Chronic Qualifiers: Dementia type: unspecified type Dementia behavioral disturbance: without behavioral disturbance Qualified Code(s): F03.90 - Unspecified dementia without behavioral disturbance (6) Anxiety: Xanax as needed Status: Chronic Additional A&P Information Obstructive sleep apnea. CPAP while sleeping Lovenox for DVT prophylaxis Full code Family was updated today. Attestations Medical Necessity Statement*: Patient needs to be in hospital for management of Covid pneumonia. Coding Level of Care Code Acute Perfume And Toilet Water Maker for g Fwd Diagnoses Respiratory failure J96.90 COVID-19 U07.1 Trigeminal neuralgia G50.0 Hyperlipidemia E78.5 Hyperlipidemia type: unspecified Dementia F03.90 Dementia type: unspecified type Dementia behavioral disturbance: without behavioral disturbance Anxiety F41.9
[2020-02-13] MEDS: FUROsemide 10 mg/mL SDV 4mL 20 MG IVP (11:56)
[2020-02-13] MEDS: azithromycin 250 MG in sodium chloride 0.9% 250 ML IV (14:02)
[2020-02-13 14:32] LABS: Vancomycin Trough 17.4 ug/mL (10-15)
[2020-02-13 14:41] LABS: NT Pro B Type Natriuretic Pept 202 pg/mL (0-450)
--- NOTE | 2020-02-13 17:36 | PC.NURSE ---
MIDLINE placed LEFT arm due to poor/lack of peripheral access. multiple US guided IVs attempted. Provider request midline access. Ready for use. Primary nurse notified.
[2020-02-13] MEDS: atorvastatin 40 mg Tablet 20 MG PO (20:50)
[2020-02-13] MEDS: trazodone 50 mg Tablet PO (20:51)
[2020-02-13] MEDS: ALPRAZolam 0.25 mg Tablet 0.5 MG PO (20:51)
[2020-02-13] MEDS: benzonatate 100 mg Capsule PO (20:52)
[2020-02-14] VITALS (31 sets, daily range): BP systolic 88–138; BP diastolic 55–73; PULSE 74–107; RESP 13–24; TEMP 36.5–36.9; O2SAT 89–97
[2020-02-14] MEDS: ipratropium-albuterol 3 mL Neb INHALATION ×6 (00:05→23:55)
[2020-02-14 04:46] LABS: Basophils # 0.1 10^3/uL (0.0-0.1); Basophils % 0.4 %; Eosinophils # 0.2 10^3/uL (0.0-0.8); Eosinophils % 1.1 %; Hematocrit 41.9 % (42.0-52.0); Lymphocytes # 1.1 10^3/uL (0.8-4.8); Mean Corpuscular HGB Conc 33.4 g/dL (30.0-36.0); Mean Corpuscular Hemoglobin 31.9 pg (28.0-34.0); Mean Corpuscular Volume 95.4 fL (80-94); Mean Platelet Volume 9.2 fL (7.4-10.4); Monocytes # 0.7 10^3/uL (0.2-0.9); Monocytes % 5.1 %; Neutrophils # 11.63 10^3/uL (1.8-7.7); Nucleated Red Blood Cells % 0 %; Platelet Count 380 10^3/cmm (130-400); Red Blood Count 4.39 10^6/uL (4.1-5.3); Red Cell Distribution Width 11.8 % (12.1-15.1); White Blood Count 14.2 10^3/uL (4.0-10.0)
[2020-02-14 05:39] LABS: Alanine Aminotransferase 33 U/L (0-41); Albumin Level 2.4 g/dL (3.5-5.2); Alkaline Phosphatase 98 IU/L (40-130); Anion Gap 11.4 (5-19); Aspartate Amino Transferase 28 U/L (0-40); Blood Urea Nitrogen 32 mg/dL (8-23); Calcium 8.5 mg/dL (8.5-10.5); Carbon Dioxide 30 mmol/L (22-29); Chloride 99 mmol/L (98-107); Globulin 3.1 g/dL (1.3-4.6); Glucose 100 mg/dL (65-115); Osmolality Calculated 289 mOsm/kg (285-295); Potassium 4.4 mmol/L (3.5-5.1); Sodium 136 mmol/L (136-145); Total Bilirubin 0.5 mg/dL (0.15-1.2); Total Protein 5.5 g/dL (6.6-8.7)
[2020-02-14] MEDS: gabapentin 400 mg Capsule PO ×3 (08:01→21:37)
[2020-02-14] MEDS: donepezil 5 MG Tablet 10 MG PO (08:01)
[2020-02-14] MEDS: memantine 5 mg tablet 10 MG PO ×2 (08:01→17:23)
[2020-02-14] MEDS: loratadine 10 mg Tablet PO (08:01)
[2020-02-14] MEDS: benzonatate 100 mg Capsule PO (08:11)
[2020-02-14] MEDS: dexamethasone 4 mg/mL INJ 6 MG IVP (08:11)
[2020-02-14] MEDS: pantoprazole DR 40 mg Tablet PO (08:11)
[2020-02-14] MEDS: zinc gluconate 50 mg Tablet PO (08:11)
[2020-02-14] MEDS: clopidogrel 75 mg Tablet PO (08:11)
[2020-02-14] MEDS: sennosides-docusate Tablet 1 TAB PO (08:11)
[2020-02-14] MEDS: ascorbic acid 500 mg Tablet PO ×2 (08:13→17:31)
[2020-02-14] MEDS: FUROsemide 10 mg/mL SDV 2mL 20 MG IVP (08:15)
[2020-02-14] MEDS: enoxaparin 80 mg/0.8 mL Syringe SUBCUT ×2 (08:31→21:36)
[2020-02-14] MEDS: budesonide 0.5 mg/2 mL Neb INHALATION ×2 (09:33→20:50)
[2020-02-14] MEDS: FUROsemide 10 mg/mL SDV 4mL 40 MG IVP (10:29)
[2020-02-14] MEDS: ALPRAZolam 0.25 mg Tablet 0.5 MG PO (10:30)
--- NOTE | 2020-02-14 11:53 | PM.PN ---
Subjective Subjective: Interval history: Patient was not tolerating oxygen through NC as he was becoming tachypenic.We had to place him back on [facility]HFONC.Currently he is 50 % fio2 at 40 L.Other vitals and labs have been reviewed. Medications: Reviewed: Yes Vitals/I&O/Wt Last Vital Signs Temp 98.2 F 02/14/20 07:00 Pulse 90 02/14/20 10:00 Resp 18 02/14/20 10:00 BP 110/60 02/14/20 10:00 Pulse Ox 89 L 02/14/20 10:00 02/13/20 02/14/20 02/14/20 22:59 06:59 14:59 Intake Total 1060 / 2470 240 / 2710 1170 / 1170 Output Total 825 / 1150 700 / 1850 1200 / 1200 Balance 235 / 1320 -460 / 860 -30 / -30 Weight last 48 hrs Weight 82.554 kg Weight 82.554 kg Physical Exam Const: COMMON NORMALS: patient oriented x3 HENMT: COMMON NORMALS: normocephalic, atraumatic, hearing grossly normal bilaterally and external ears normal HEAD & SCALP: normocephalic and atraumatic EXTERNAL EAR: Yes external ears normal Eye: COMMON NORMALS: no scleral icterus GENERAL EYE: appearance normal, both eyes and all related structures Chest: COMMONS NORMALS: normal inspection of the chest and normal palpation of entire chest wall CHEST: Yes Symmetrical chest wall rise Resp: COMMON NORMALS: normal respiratory effort, No retractions and No use of accessory muscles EFFORT & INSPECTION: Yes symmetric chest movement OTHER: Minimal basal crackles, present in both lung field. Cardio: COMMON NORMALS: regular rate, regular rhythm, S1 normal heart sound present, S2 normal heart sound present, No gallops present (Cardio), No murmurs present (Cardio), No rub (Cardio) and Peripheral pulses 2+ throughout RATE: regular rate RHYTHM: regular rhythm HEART SOUNDS: S1 normal heart sound present and S2 normal heart sound present PERIPHERAL PULSES: Peripheral pulses 2+ throughout GI: COMMON NORMALS: Normal to inspection, nondistended, normoactive bowel sounds present, Soft to palpation, non-tender, No hepatosplenomegaly present and no masses AUSCULTATION: Yes normoactive bowel sounds PALPATION: Yes Soft to palpation and Yes No hepatosplenomegaly present RECTAL EXAM: Yes deferred Extremity: COMMON NORMALS: no clubbing, cyanosis or edema and no pedal edema Neuro: COMMON NORMALS: patient oriented x3 Urinary Catheter Management^: Rios: Cath Placed During This Visit: yes Reason for Continuing Indwelling Catheter: Accurate Measurement of Urinary Output in Critically Ill Patients Urinary Catheter Date of Insertion: 02/08/20 Urinary Catheter Time of Insertion: 10:00 Data : 02/14/20 04:18 02/14/20 04:18 Micro: Microbiology 02/13/20 16:25 Urine Culture - Preliminary Urine Catheterized 02/13/20 13:50 Blood Culture - Preliminary Blood SPECIMEN COLLECTED 02/13/20 13:45 Blood Culture - Preliminary Blood SPECIMEN COLLECTED A&P Assessment and plan (1) Respiratory failure: Acute hypoxic respiratory failure secondary to Covid pneumonia/with superimposed possible bacterial pneumonia. Currently on Covid protocol.(Remdesivir: 01/30-02/08 )Continue dexamethasone with full anticogulation ( lovenox 80 mg sc q12 h daily ) Also on broad-spectrum anti-abx: Vancomycin, imipenem. Azithromycin was added on 3: For possible atypical coverage. Repeat blood culture, and sputum culture have been. 2D done on 02/14/----> Left ventricular ejection fraction is roughly estimated at 55 %. Lasix 40 mg IV x1 today. Convalescent plasma 200 cc x1 dose given on 02/10 Continue active proning Status: Acute (2) COVID-19: Completed 10 days of remdesivir, on dexamethasone. CTA was negative: But as the D-dimer was extremely high:16.31---->4.59: Patient was started on full dose anticoagulation on Lovenox: 80mg q12 h daily. lovenox dc on 02/13 as the prior PE study is negative and D-Dimer has trended town. Will strat him on prophylactic Lovenox Status: Acute (3) Trigeminal neuralgia: Continue Neurontin Status: Chronic (4) Hyperlipidemia: Status: Chronic Qualifiers: Hyperlipidemia type: unspecified Qualified Code(s): E78.5 - Hyperlipidemia, unspecified (5) Dementia: Status: Chronic Qualifiers: Dementia type: unspecified type Dementia behavioral disturbance: without behavioral disturbance Qualified Code(s): F03.90 - Unspecified dementia without behavioral disturbance (6) Anxiety: Xanax as needed Status: Chronic Additional A&P Information Obstructive sleep apnea. CPAP while sleeping Lovenox for DVT prophylaxis Full code Family was updated today. Attestations Medical Necessity Statement*: Patient needs to be in hospital for management of COVID PNA Coding Level of Care Code Acute Rn Support Services for Chg Fwd Diagnoses Respiratory failure J96.90 COVID-19 U07.1 Trigeminal neuralgia G50.0 Hyperlipidemia E78.5 Hyperlipidemia type: unspecified Dementia F03.90 Dementia type: unspecified type Dementia behavioral disturbance: without behavioral disturbance Anxiety F41.9
[2020-02-14] MEDS: ondansetron 2 mg/ML SDV 2 mL 4 MG IVP (12:20)
[2020-02-14] MEDS: azithromycin 250 MG in sodium chloride 0.9% 250 ML IV (12:39)
--- NOTE | 2020-02-14 12:55 | USCV_ITS ---
Wilver Arteaga Age: 79 Gender: M : 1940 Exam Date: 02/14/2020 06:28 Ordering Phys: Crow Arriola MD Technologist: [place] [facility] [place]: SOB BP: 112 / 67 HR: 83 Rhythm: Sinus Technical Quality: Technically difficult study MEASUREMENTS (Male / Female) Normal Values 2D ECHO LVOT Diameter 2.1 cm LV Ejection Fraction MOD 2C 67.6 % LV Ejection Fraction 2C AL 68.4 % LA Diameter 3.3 cm LA Width 3.5 cm LA Height 4.0 cm RA Width 3.6 cm RA Height 3.7 cm Aorta at Sinotubular Diameter 1.1 cm M-MODE LV Diastolic Diameter MM 4.4 cm 4.2 - 5.9 / 3.9 - 5.3 cm LV Systolic Diameter MM 3.5 cm LV Ejection Fraction MM Teich 42.8 % IVS Diastolic Thickness MM 1.0 cm 0.6 - 1.0 / 0.6 - 0.9 cm IVS Systolic Thickness MM 0.9 cm LVPW Diastolic Thickness MM 1.2 cm 0.6 - 1.0 / 0.6 - 0.9 cm LVPW Systolic Thickness MM 1.6 cm RV Diastolic Diameter MM 1.8 cm Aortic Annulus Diameter 3.2 cm LA Ao Ratio MM 1.1 MV E Point Septal Separation 0.9 cm DOPPLER AV Peak Velocity 101.0 cm/s LVOT Peak Velocity 87.0 cm/s AV Area Cont Eq vti 3.2 cm squared AV Area Cont Eq pk 3.0 cm squared MV Area PHT 5.0 cm squared Mitral E to A Ratio 0.7 MV E' Velocity 24.0 cm/s Mitral E to MV E' Ratio 4.3 Mitral E to LV E' Lateral Ratio 3.5 Mitral E to LV E' Septal Ratio 5.6 TR Peak Velocity 135.3 cm/s TR Peak Gradient 7.3 mmHg TV Peak E Velocity 83.0 cm/s Right Atrial Pressure 3.0 mmHg Pulmonary Artery Systolic Pressu 10.3 mmHg FINDINGS Left Ventricle Normal left ventricular cavity size. Possibly normal left ventricular systolic function. Left ventricular ejection fraction is roughly estimated at 55 %. Although no diagnostic regional wall motion abnormality could be identified, this possibility cannot be completely excluded. Normal diastolic function. Right Ventricle Right ventricle not well visualized. probably normal right ventricular size and systolic function. Right ventricular systolic pressure 10.3 mmHg. Right Atrium Right atrium not well visualized. Left Atrium Normal left atrial size. Mitral Valve Mildly thickened mitral valve. No mitral valve stenosis. No significant mitral valve regurgitation. Aortic Valve Aortic valve not well visualized. Structurally normal trileaflet aortic valve. No aortic valve stenosis. Tricuspid Valve Tricuspid valve not well visualized. Pulmonic Valve Pulmonic valve not well visualized. Pericardium No pericardial effusion. Aorta Upper normal aortic root. CONCLUSIONS 1. Normal left ventricular cavity size. Possibly normal left ventricular systolic function. Left ventricular ejection fraction is roughly estimated at 55 %. Although no diagnostic regional wall motion abnormality could be identified, this possibility cannot be completely excluded. Normal diastolic function. 2. Probably normal right ventricular size and systolic function. Right ventricular systolic pressure 10.3 mmHg. 3. No significant valvular abnormality. 4. No prior similar studies to compare. Dorinda Velasquez MD (Electronically Signed) Final Date: 14 February 2020 11:13 S
--- NOTE | 2020-02-14 14:42 | PC.OT ---
OT evaluation withheld this date due to PAPR not available. Patient is in COVID-19 unit with droplet isolation.
[2020-02-14] MEDS: sodium chloride 0.9% 250 ML IV (16:43)
[2020-02-14] MEDS: polyethylene glycol 3350 Pkt 17 gm PO (17:23)
[2020-02-14] MEDS: trazodone 50 mg Tablet PO (21:38)
[2020-02-14] MEDS: atorvastatin 40 mg Tablet 20 MG PO (21:39)
[2020-02-15] VITALS (27 sets, daily range): BP systolic 110–142; BP diastolic 58–78; PULSE 73–93; RESP 13–28; TEMP 36.7–36.8; O2SAT 86–95
[2020-02-15 05:24] LABS: Basophils # 0.1 10^3/uL (0.0-0.1); Basophils % 0.6 %; Eosinophils # 0.2 10^3/uL (0.0-0.8); Eosinophils % 1.7 %; Hematocrit 41.5 % (42.0-52.0); Hemoglobin 13.7 g/dL (11.7-16.6); Lymphocytes # 1.3 10^3/uL (0.8-4.8); Lymphocytes % 10.3 %; Mean Corpuscular Hemoglobin 32.2 pg (28.0-34.0); Mean Corpuscular Volume 97.4 fL (80-94); Mean Platelet Volume 9.3 fL (7.4-10.4); Monocytes # 0.8 10^3/uL (0.2-0.9); Monocytes % 6.8 %; Neutrophils % 76.6 %; Nucleated Red Blood Cells % 0 %; Platelet Count 353 10^3/cmm (130-400); Red Blood Count 4.26 10^6/uL (4.1-5.3); Red Cell Distribution Width 12.2 % (12.1-15.1); White Blood Count 12.3 10^3/uL (4.0-10.0)
[2020-02-15] MEDS: ipratropium-albuterol 3 mL Neb INHALATION (08:29)
[2020-02-15] MEDS: budesonide 0.5 mg/2 mL Neb INHALATION ×2 (08:29→20:45)
[2020-02-15 08:33] LABS: Anion Gap 7.5 (5-19); Blood Urea Nitrogen 27 mg/dL (8-23); Calcium 8.3 mg/dL (8.5-10.5); Carbon Dioxide 33 mmol/L (22-29); Chloride 101 mmol/L (98-107); Glucose 100 mg/dL (65-115); Osmolality Calculated 289 mOsm/kg (285-295); Potassium 4.5 mmol/L (3.5-5.1); Sodium 137 mmol/L (136-145)
[2020-02-15] MEDS: polyethylene glycol 3350 Pkt 17 gm PO ×2 (08:42→17:15)
[2020-02-15] MEDS: memantine 5 mg tablet 10 MG PO ×2 (08:43→17:15)
[2020-02-15] MEDS: donepezil 5 MG Tablet 10 MG PO (08:43)
[2020-02-15] MEDS: gabapentin 400 mg Capsule PO ×3 (08:43→21:04)
[2020-02-15] MEDS: albuterol 8 gm MDI 2 PUFF INHALATION ×2 (08:44→11:14)
[2020-02-15] MEDS: loratadine 10 mg Tablet PO (08:44)
[2020-02-15] MEDS: dexamethasone 4 mg/mL INJ 6 MG IVP (08:47)
[2020-02-15] MEDS: pantoprazole DR 40 mg Tablet PO (08:47)
[2020-02-15] MEDS: clopidogrel 75 mg Tablet PO (08:47)
[2020-02-15] MEDS: zinc gluconate 50 mg Tablet PO (08:47)
[2020-02-15] MEDS: ascorbic acid 500 mg Tablet PO ×2 (08:47→17:13)
[2020-02-15] MEDS: azithromycin 250 MG in sodium chloride 0.9% 250 ML IV (12:50)
--- NOTE | 2020-02-15 14:11 | PC.OT ---
OT evaluation withheld this date due to patient in droplet isolation and PAPR is not available. To attempt eval on a later date.
--- NOTE | 2020-02-15 14:18 | DCPLANNER ---
Pg 2 of IM updated with ; Angely, via the phone [phone], no questions.
[2020-02-15] MEDS: sodium chloride 0.9% (100 ml) 100 ML 10 ML (15:29)
[2020-02-15] MEDS: apixaban 5 mg Tablet 2.5 MG PO (18:06)
--- NOTE | 2020-02-15 18:15 | PC.NURSE ---
Patient had a good day. VS remained stable, Output remained adequate. Patient did ambulate twice this shift. Distance was approximately 100 feet each walk. Patient in good spirits today, just wanting to go home. O2 requirements remained around 5lpm this shift.
--- NOTE | 2020-02-15 18:45 | PC.NURSE ---
Received report on patient from Rodolfo BROTHERS. Assumed care at this time.
[2020-02-15] MEDS: FUROsemide 10 mg/mL SDV 4mL 20 MG IVP (20:28)
[2020-02-15] MEDS: trazodone 50 mg Tablet PO (21:03)
[2020-02-15] MEDS: atorvastatin 40 mg Tablet 20 MG PO (21:03)
--- NOTE | 2020-02-15 21:38 | PC.RESP ---
PT attempted to wear home cpap unit. After five minutes on his cpap, pt stated he couldn't breathe O2 sat was 86%. He felt like he couldnt get any air in thru his cpap mask. Cpap machine, mask, and tubing checked and everything was work correctly. Placed pt back on 6 lpm high flow nasal cannula and O2 sat in creased to 91%. Pt states he can breathe better now. Notified the RN and will leave him on the nasal cannula for tonight.
--- NOTE | 2020-02-15 21:43 | PM.PN ---
Subjective Subjective: Interval history: has done good today.He has participated in physical therapy.Oxygen saturation has remained above 90% on 6-10 L Oxygen via NC. His vitals have remained stable,He is tolerating diet well.Good Urine output with lasix. Labs have been reviewed. Family updated Medications: Reviewed: Yes Vitals/I&O/Wt Last Vital Signs Temp 98.2 F 02/15/20 16:00 Pulse 83 02/15/20 21:33 Resp 18 02/15/20 21:33 BP 126/69 02/15/20 16:00 Pulse Ox 91 02/15/20 21:33 02/15/20 02/15/20 02/15/20 06:59 14:59 22:59 Intake Total 950 / 950 650 / 1600 Output Total 400 / 3100 600 / 600 1150 / 1750 Balance -400 / -380 350 / 350 -500 / -150 Weight last 48 hrs Weight 81.193 kg Weight 82.554 kg Physical Exam Const: COMMON NORMALS: patient oriented x3 HENMT: COMMON NORMALS: normocephalic, atraumatic, hearing grossly normal bilaterally and external ears normal HEAD & SCALP: normocephalic and atraumatic EXTERNAL EAR: Yes external ears normal Eye: COMMON NORMALS: no scleral icterus GENERAL EYE: appearance normal, both eyes and all related structures Chest: COMMONS NORMALS: normal inspection of the chest and normal palpation of entire chest wall CHEST: Yes Symmetrical chest wall rise Resp: COMMON NORMALS: normal respiratory effort, No retractions and No use of accessory muscles EFFORT & INSPECTION: Yes symmetric chest movement OTHER: Minimal basal crackles, present in both lung field Cardio: COMMON NORMALS: regular rate, regular rhythm, S1 normal heart sound present, S2 normal heart sound present, No gallops present (Cardio), No murmurs present (Cardio), No rub (Cardio) and Peripheral pulses 2+ throughout RATE: regular rate RHYTHM: regular rhythm HEART SOUNDS: S1 normal heart sound present and S2 normal heart sound present PERIPHERAL PULSES: Peripheral pulses 2+ throughout GI: COMMON NORMALS: Normal to inspection, nondistended, normoactive bowel sounds present, Soft to palpation, non-tender, No hepatosplenomegaly present and no masses AUSCULTATION: Yes normoactive bowel sounds PALPATION: Yes Soft to palpation and Yes No hepatosplenomegaly present RECTAL EXAM: Yes deferred Extremity: COMMON NORMALS: no clubbing, cyanosis or edema and no pedal edema Neuro: COMMON NORMALS: patient oriented x3 Urinary Catheter Management^: Rios: Cath Placed During This Visit: yes Reason for Continuing Indwelling Catheter: Accurate Measurement of Urinary Output in Critically Ill Patients Urinary Catheter Date of Insertion: 02/08/20 Urinary Catheter Time of Insertion: 10:00 Data : 02/15/20 03:55 02/15/20 07:40 Micro: Microbiology 02/13/20 21:09 Sputum Culture - Preliminary Sputum - Expectorated Sputum Gram Negative Rods 02/13/20 16:25 Urine Culture - Final Urine Catheterized A&P Assessment and plan (1) Respiratory failure: Acute hypoxic respiratory failure secondary to Covid pneumonia/with superimposed possible bacterial/atypical pneumonia. ( Improving)---> supplemental oxygen requirement has gown down.Initially on HHFONC requiring high o2 suplement at high flow. Completed Covid protocol.(Remdesivir: 01/30-02/08 )Continue dexamethasone with full anticogulation ( Eliquis 2.5 mg q12 h started on 02/14) Also on broad-spectrum anti-abx: Vancomycin, imipenem. Azithromycin was added on 1022: For possible atypical coverage. Repeat blood culture:Prelim No growth sputum culture:GNR ( 02/12) Urine Culture : No growth. 2D done on 02/14/----> Left ventricular ejection fraction is roughly estimated at 55 %. Lasix 20 mg IV x1 today. Convalescent plasma 200 cc x1 dose given on 02/10 Patient failed to tolerate proning Status: Acute (2) COVID-19: Completed 10 days of remdesivir, on dexamethasone. CTA was negative: But as the D-dimer was extremely high:16.31---->4.59: Patient was started on full dose anticoagulation.Initially on Lovenox: 80mg q12 h daily( stopped on 02/13) .Now switched to eliquis 2.5 mg q12 h daily. Status: Acute (3) Trigeminal neuralgia: Continue Neurontin Status: Chronic (4) Hyperlipidemia: Status: Chronic Qualifiers: Hyperlipidemia type: unspecified Qualified Code(s): E78.5 - Hyperlipidemia, unspecified (5) Dementia: Status: Chronic Qualifiers: Dementia type: unspecified type Dementia behavioral disturbance: without behavioral disturbance Qualified Code(s): F03.90 - Unspecified dementia without behavioral disturbance (6) Anxiety: Xanax as needed Status: Chronic Additional A&P Information Obstructive sleep apnea. CPAP while sleeping Lovenox for DVT prophylaxis Full code Family was updated today. Attestations Medical Necessity Statement*: Patient needs to be in hospital for management of COVID PNA. 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
[2020-02-16] VITALS (33 sets, daily range): BP systolic 84–138; BP diastolic 62–89; PULSE 73–101; RESP 12–28; TEMP 36.1–36.8; O2SAT 88–96; BMI 25.0
[2020-02-16 04:32] LABS: Basophils # 0.1 10^3/uL (0.0-0.1); Basophils % 0.7 %; Eosinophils # 0.2 10^3/uL (0.0-0.8); Eosinophils % 1.8 %; Hematocrit 44.4 % (42.0-52.0); Hemoglobin 14.7 g/dL (11.7-16.6); Lymphocytes # 1.2 10^3/uL (0.8-4.8); Lymphocytes % 10.4 %; Mean Corpuscular HGB Conc 33.1 g/dL (30.0-36.0); Mean Corpuscular Hemoglobin 32.3 pg (28.0-34.0); Mean Corpuscular Volume 97.6 fL (80-94); Monocytes # 0.7 10^3/uL (0.2-0.9); Monocytes % 6.6 %; Neutrophils # 8.63 10^3/uL (1.8-7.7); Neutrophils % 77.5 %; Nucleated Red Blood Cells % 0 %; Platelet Count 346 10^3/cmm (130-400); Red Blood Count 4.55 10^6/uL (4.1-5.3); Red Cell Distribution Width 11.7 % (12.1-15.1); White Blood Count 11.2 10^3/uL (4.0-10.0)
[2020-02-16 04:56] LABS: Alanine Aminotransferase 40 U/L (0-41); Albumin Level 2.7 g/dL (3.5-5.2); Alkaline Phosphatase 106 IU/L (40-130); Anion Gap 10.3 (5-19); Aspartate Amino Transferase 30 U/L (0-40); Blood Urea Nitrogen 24 mg/dL (8-23); Calcium 9.1 mg/dL (8.5-10.5); Carbon Dioxide 33 mmol/L (22-29); Chloride 96 mmol/L (98-107); Globulin 3.3 g/dL (1.3-4.6); Glucose 124 mg/dL (65-115); Osmolality Calculated 285 mOsm/kg (285-295); Potassium 4.3 mmol/L (3.5-5.1); Sodium 135 mmol/L (136-145); Total Bilirubin 0.5 mg/dL (0.15-1.2)
--- NOTE | 2020-02-16 06:04 | XR_ITS ---
WS: [id number] Exam: XR chest 1V portable [id number] Date/Time of Exam: 02/16/2020 6:04 AM Reason For Exam: PNA Comparison 02/13/2020. Bilateral patchy pulmonary infiltrates noted unchanged. The lungs remain fully inflated. No pleural e ffusions. Cardiomediastinal structures are unremarkable. 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 Monitoring leads superimpose the chest. Bony structures are intact. XR/XR chest 1V portable [id number] IMPRESSION: 1. Bilateral pulmonary infiltrates showing no significant change.
[2020-02-16 06:26] LABS: Vancomycin Trough 18.4 ug/mL (10-15)
[2020-02-16] MEDS: apixaban 5 mg Tablet 2.5 MG PO ×2 (08:23→17:51)
[2020-02-16] MEDS: ascorbic acid 500 mg Tablet PO ×2 (08:24→17:52)
[2020-02-16] MEDS: clopidogrel 75 mg Tablet PO (08:24)
[2020-02-16] MEDS: memantine 5 mg tablet 10 MG PO ×2 (08:24→17:52)
[2020-02-16] MEDS: dexamethasone 4 mg/mL INJ 6 MG IVP (08:24)
[2020-02-16] MEDS: donepezil 5 MG Tablet 10 MG PO (08:24)
[2020-02-16] MEDS: pantoprazole DR 40 mg Tablet PO (08:24)
[2020-02-16] MEDS: loratadine 10 mg Tablet PO (08:24)
[2020-02-16] MEDS: gabapentin 400 mg Capsule PO ×3 (08:24→21:12)
[2020-02-16] MEDS: polyethylene glycol 3350 Pkt 17 gm PO ×2 (08:25→17:52)
[2020-02-16] MEDS: zinc gluconate 50 mg Tablet PO (08:25)
[2020-02-16] MEDS: albuterol 8 gm MDI 2 PUFF INHALATION ×4 (09:03→20:48)
--- NOTE | 2020-02-16 09:43 | PC.NURSE ---
patient's called for update on patient. She said they are interested in rehab and asked if it was in [place] area. I told her they do offer rehab in [place] but the facilities may be full so that is a good question for SS. she said she understands and that she will call back later to day.
--- NOTE | 2020-02-16 10:22 | PC.NURSE ---
collected sputum and sent to lab.
--- NOTE | 2020-02-16 10:53 | PC.NURSE ---
Lab called and said they do not have an order for the sputum sample. auto service writer and RT Brandon can see the order and it states uncollected. RT tried to collect it and it stated the order is 16 days old and wouldn't let her collect it. auto service writer changed the date for today and collected the sputum sample.
--- NOTE | 2020-02-16 12:13 | P.PN_ITS ---
Subjective Subjective: Interval history: Prolonged hospital stay, gradually decreasing oxygen requirement, currently requiring about 8 L high flow with CPAP use overnight. Had 4250 mL urine output overnight for total negative fluid balance of 8.9 L. Hemodynamically stable, afebrile. Minimally tachypneic with respiratory rates in the 20s. Decreasing leukocytosis, stable renal function and hemoglobin. Sputum culture growing gram-negative rods. Chest x-ray today relatively unchanged. As no evidence of MRSA will discontinue vancomycin. Sitting in recliner by bedside, no complaints, very pleasant. Medications: Reviewed: Yes Medication Review Details: Active Medications Generic Name Dose Route Start Last Admin Trade Name Freq PRN Reason Stop Dose Admin Acetaminophen 650 mg 01/31/20 17:29 02/12/20 20:55 Tylenol PO 650 mg Q6H PRN Administration Mild/Mod Pain Or Temp >/= 101 Albuterol Sulfate 2 puff 01/31/20 17:22 02/16/20 09:03 Ventolin INHALATION 2 puff Q4H.RESPIRATORY P RN Administration SHORTNESS OF VIVIEN TH Albuterol/Ipratrop ium 3 ml 02/06/20 04:00 02/15/20 15:52 Duoneb INHALATION Not Given Q4H.RESPIRATORY S CH Alprazolam 0.5 mg 02/14/20 10:08 02/14/20 10:30 Xanax PO 0.5 mg BID PRN Administration ANXIETY Apixaban 2.5 mg 02/15/20 18:00 02/16/20 08:23 Eliquis PO 2.5 mg BID RAND Administration Ascorbic Acid 500 mg 01/31/20 18:00 02/16/20 08:24 Vitamin C PO 500 mg BID RAND Administration Atorvastatin Calci um 20 mg 02/04/20 21:00 02/15/20 21:03 Lipitor PO 20 mg BEDTIME RAND Administration Azithromycin 250 mg 02/16/20 13:00 Zithromax PO Q24H RAND Benzonatate 100 mg 01/31/20 17:33 02/14/20 08:11 Tessalon Pearls PO 100 mg TID PRN Administration COUGH Clopidogrel Bisulf ate 75 mg 02/01/20 09:00 02/16/20 08:24 Plavix PO 75 mg DAILY RAND Administration Dexamethasone 6 mg 02/01/20 09:00 02/16/20 08:24 Decadron IVP 6 mg Q24H RAND Administration Docusate Calcium 240 mg 02/02/20 21:00 02/15/20 21:03 Surfak PO 240 mg BEDTIME RAND Administration Donepezil HCl 10 mg 02/01/20 09:00 02/16/20 08:24 Aricept PO 10 mg DAILY RAND Administration Gabapentin 400 mg 01/31/20 17:25 02/16/20 08:24 Neurontin PO 400 mg TID RAND Administration Guaifenesin 200 mg 01/31/20 17:33 Robitussin Oral Liq PO Q4H PRN COUGH AND CONGEST ION Imipenem/Cilastati n Sodium 500 100 mls @ 200 mls /hr 02/06/20 12:00 02/16/20 08:23 mg/ Sodium Chlor curry IV 200 mls/hr Q6H RAND Administration Protocol Vancomycin HCl 1,2 50 mg/ 250 mls @ 166.667 mls/hr 02/13/20 18:00 02/16/20 06:44 Sodium Chloride IV 166.7 mls/hr Q12H RAND Administration Protocol Loratadine 10 mg 02/01/20 09:00 02/16/20 08:24 Claritin PO 10 mg DAILY RAND Administration Memantine 10 mg 01/31/20 18:00 02/16/20 08:24 Namenda PO 10 mg BID RAND Administration Ondansetron HCl 4 mg 01/31/20 17:29 02/14/20 12:20 Zofran IVP 4 mg Q6H PRN Administration vomiting, or N/V if npo Pantoprazole Sodiu m 40 mg 02/01/20 09:00 02/16/20 08:24 Protonix PO 40 mg DAILY RAND Administration Polyethylene Glyco l 17 gm 02/14/20 18:00 02/16/20 08:25 Miralax PO 17 gm BID RAND Administration Fluticasone/Salmet darvin 1 puff 02/15/20 20:00 02/16/20 09:02 Advair Diskus 25 0-50 INHALATION 1 puff BID.RESPIRATORY S CH Administration Senna/Docusate Sod ium 1 tab 02/02/20 20:27 02/14/20 08:11 Senna-S PO 1 tab DAILY PRN Administration CONSTIPATION Trazodone HCl 50 mg 01/31/20 21:00 02/15/20 21:03 Desyrel PO 50 mg BEDTIME RAND Administration Zinc Gluconate 50 mg 02/01/20 09:00 02/16/20 08:25 Zinc Gluconate PO 50 mg DAILY RAND Administration adhesive Allergy (Verified 01/31/20 11:08) ALGY-Rash Vitals/I&O/Wt Last Vital Signs Temp 98.1 F 02/15/20 20:00 Pulse 98 02/16/20 12:00 Resp 20 H 02/16/20 12:00 BP 118/71 02/16/20 12:00 Pulse Ox 94 02/16/20 12:00 02/15/20 02/16/20 02/16/20 22:59 06:59 14:59 Intake Total 2475 / 3425 320 / 3745 460 / 460 Output Total 2700 / 3300 3100 / 6400 Balance -225 / 125 -2780 / -2655 460 / 460 Weight last 48 hrs Weight 81.193 kg Weight 81.193 kg Physical Exam Const: COMMON NORMALS: no acute distress, patient oriented x3 and alert GENERAL APPEARANCE: cooperative and comfortable ORIENTATION/CONSCIOUSNESS: Yes awake OTHER: -Appears appropriate for age, very pleasant, sitting in recliner by bedside HENMT: COMMON NORMALS: normocephalic, atraumatic and moist oral mucous m embranes HEAD & SCALP: normocephalic and atraumatic GENERAL EAR: hearing grossly impaired Laterality: bilateral Eye: COMMON NORMALS: Equal, round and reactive pupils present, EOMs intact bilaterally and conjunctivae normal CONJUNCTIVA: Yes conjunctivae normal PUPIL: Yes Equal, round and reactive pupils present Neck/C-Spine: COMMON NORMALS: full ROM GENERAL: Yes normal visual inspection and Yes trachea midline Resp: COMMON NORMALS: normal respiratory effort, No retractions and No use of accessory muscles EFFORT & INSPECTION: Yes able to speak in complete sentences, Yes symmetric chest movement and No tachypneic AUSCULTATION: diminished lung sounds OTHER: -on 8 L NC; desaturates with exertion Cardio: COMMON NORMALS: regular rate, regular rhythm, S1 normal heart sound present, S2 normal heart sound present and No murmurs present (Cardio) RATE: regular rate RHYTHM: regular rhythm HEART SOUNDS: S1 normal heart sound present and S2 normal heart sound present GI: COMMON NORMALS: Normal to inspection, nondistended, normoactive bowel sounds present, Soft to palpation and non-tender PALPATION: Yes Soft to palpation Extremity: COMMON NORMALS: normal to inspection, full ROM and no clubbing, cyanosis or edema; negative for no pedal edema Neuro: COMMON NORMALS: patient oriented x3, moves all extremities, no focal motor deficits, no sensory deficits noted and gait normal SENSORIUM/ORIENTATION: Yes alert Psych: COMMON NORMALS: mental status grossly normal, Normal thought process present, cooperative, normal affect and speech normal SPEECH: Yes normal speech THOUGHT PROCESS: Normal thought process present Skin: COMMON NORMALS: no rashes or lesions noted, no jaundice, no petechiae and no mottling GENERAL SKIN EXAM: no rashes or lesions noted Urinary Catheter Management^: Rios: Cath Placed During This Visit: yes Reason for Continuing Indwelling Catheter: Accurate Measurement of Urinary Output in Critically Ill Patients Urinary Catheter Date of Insertion: 02/08/20 Urinary Catheter Time of Insertion: 10:00 Data : 02/16/20 03:55 02/16/20 03:55 Micro: Microbiology 02/13/20 21:09 Sputum Culture - Preliminary Sputum - Expectorated Sputum Gram Negative Rods 02/13/20 16:25 Urine Culture - Final Urine Catheterized A&P Assessment and plan (1) COVID-19: -s/p 10 day course of remdesevir -gradually decreasing oxygen requirement though still high overall -continue dexamethasone -Isolation precautions -continue to monitor respiratory status, vital signs -Telemetry monitoring -improving inflammatory markers -Imaging stable -continue zinc, vitamin C, inhaler treatments, antitussives PRN, IS, pulmonary toilet -d/c Vanc/Imipenem/Azithromycin -sputum cx: Stenotrophomonas maltophilia; in light of imaging, COVID-19 infection this is likely reflective of a true infection so we will treat with Levaquin per sensitivity profile -blood cx: negative -due to significant D-dimer elevation, was covered with therapeutic lovenox, CTA negative; this has since improved, continue Eliquis -did receive a dose of convalescent plasma on 02/10 (200 mL) -did not tolerate proning Status: Acute (2) Respiratory failure: -secondary to COVID-19 pneumonia; unable to exclude superimposed bacterial infection as well -as noted above -negative fluid balance overall; -9 L; received low dose lasix x 1 yesterday (02/14) -Echo: EF=55% Status: Acute Qualifiers: Chronicity: acute Respiratory failure complication: hypoxia Qualified Code(s): J96.01 - Acute respiratory failure with hypoxia (3) Trigeminal neuralgia: -continue gabapentin Status: Chronic (4) Hyperlipidemia: -continue statin Status: Chronic Qualifiers: Hyperlipidemia type: unspecified Qualified Code(s): E78.5 - Hyperlipidemia, unspecified (5) Dementia: -continue meds Status: Chronic Qualifiers: Dementia behavioral disturbance: without behavioral disturbance Nain ntia type: unspecified type Qualified Code(s): F03.90 - Unspecified dementia without behavioral disturbance (6) Anxiety: -anxiolytics PRN Status: Chronic Additional A&P Information -JESSICA, on CPAP qhs -Physical deconditioning; PT evaluation appreciated -cardiac diet as tolerated -GI ppx with PPI -DVT ppx not needed as on Eliquis -Dispo: will likely require rehab in light of overall deconditioning -Code status: FULL code Attestations Medical Necessity Statement*: Patient requires hospitalization for continued treatment of COVID-19 infection with continued hypoxia and high oxygen requirement, physical deconditioning. Time Spent in Patient Care: Greater than 35 minutes (>than 50% of time spent in counselling and/or direct pt care on unit) . 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
--- NOTE | 2020-02-16 12:23 | ECG_ITS ---
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 Measurements Intervals [place] Rate: 95 P: 61 WV: 183 QRS: 74 QRSD: 115 T: 32 QT: 396 QTc: 499 Interpretive Statements SINUS RHYTHM POSSIBLE LEFT ATRIAL ENLARGEMENT [-0.1mV P WAVE IN V1/V2] MODERATE INTRAVENTRICULAR CONDUCTION DELAY [110+ ms QRS DURATION] NONSPECIFIC ST & T-WAVE ABNORMALITY Compared to ECG 01/31/2020 18:13:49 Intraventricular conduction delay now present T-wave abnormality now present First degree AV block no longer present Electronically Signed On 02-17-2020 7:37:17 CDT by Dorinda Velasquez M.D. [email or web address]
--- NOTE | 2020-02-16 13:17 | PC.NURSE ---
patient was able to ambulate from his room to door at VICU 9 and back to room with SBA and oxygen 8L NC. Patient became SOB and wanted to lay down. automobile and property underwriter assisted patient to laying in bed and patient's SOB improved.
[2020-02-16] MEDS: azithromycin 250 mg Tablet PO (13:53)
--- NOTE | 2020-02-16 18:45 | PC.NURSE ---
Received report on patient from Christina BROTHERS. Assumed care at this time.
[2020-02-16] MEDS: trazodone 50 mg Tablet PO (21:12)
[2020-02-16] MEDS: atorvastatin 40 mg Tablet 20 MG PO (21:12)
[2020-02-16] MEDS: ALPRAZolam 0.25 mg Tablet 0.5 MG PO (21:20)
[2020-02-17] VITALS (29 sets, daily range): BP systolic 89–136; BP diastolic 55–80; PULSE 73–114; RESP 10–31; TEMP 36.5–36.9; O2SAT 81–97
[2020-02-17 05:42] LABS: Basophils # 0.1 10^3/uL (0.0-0.1); Basophils % 0.7 %; Eosinophils # 0.2 10^3/uL (0.0-0.8); Eosinophils % 1.8 %; Hematocrit 43.8 % (42.0-52.0); Hemoglobin 14.6 g/dL (11.7-16.6); Lymphocytes # 1.2 10^3/uL (0.8-4.8); Lymphocytes % 11.2 %; Mean Corpuscular HGB Conc 33.3 g/dL (30.0-36.0); Mean Corpuscular Hemoglobin 31.8 pg (28.0-34.0); Mean Corpuscular Volume 95.4 fL (80-94); Mean Platelet Volume 9.3 fL (7.4-10.4); Monocytes # 0.7 10^3/uL (0.2-0.9); Neutrophils # 8.35 10^3/uL (1.8-7.7); Neutrophils % 77.5 %; Nucleated Red Blood Cells % 0 %; Platelet Count 345 10^3/cmm (130-400); Red Blood Count 4.59 10^6/uL (4.1-5.3); Red Cell Distribution Width 11.6 % (12.1-15.1); White Blood Count 10.8 10^3/uL (4.0-10.0)
[2020-02-17 06:11] LABS: Slide Review Slide Review Perform
[2020-02-17] MEDS: levoFLOXacin 750 mg Tablet PO (06:18)
[2020-02-17 06:20] LABS: Alanine Aminotransferase 48 U/L (0-41); Albumin Level 2.8 g/dL (3.5-5.2); Alkaline Phosphatase 98 IU/L (40-130); Anion Gap 12.6 (5-19); Aspartate Amino Transferase 34 U/L (0-40); Blood Urea Nitrogen 25 mg/dL (8-23); Calcium 9.2 mg/dL (8.5-10.5); Carbon Dioxide 29 mmol/L (22-29); Chloride 99 mmol/L (98-107); Globulin 3.1 g/dL (1.3-4.6); Glucose 91 mg/dL (65-115); Osmolality Calculated 286 mOsm/kg (285-295); Potassium 4.6 mmol/L (3.5-5.1); Sodium 136 mmol/L (136-145); Total Bilirubin 0.4 mg/dL (0.15-1.2); Total Protein 5.9 g/dL (6.6-8.7)
[2020-02-17] MEDS: albuterol 8 gm MDI 2 PUFF INHALATION ×2 (08:31→20:58)
[2020-02-17] MEDS: ascorbic acid 500 mg Tablet PO ×2 (08:50→17:15)
[2020-02-17] MEDS: apixaban 5 mg Tablet 2.5 MG PO ×2 (08:51→17:15)
[2020-02-17] MEDS: clopidogrel 75 mg Tablet PO (08:51)
[2020-02-17] MEDS: dexamethasone 4 mg/mL INJ 6 MG IVP (08:51)
[2020-02-17] MEDS: loratadine 10 mg Tablet PO (08:51)
[2020-02-17] MEDS: zinc gluconate 50 mg Tablet PO (08:51)
[2020-02-17] MEDS: memantine 5 mg tablet 10 MG PO ×2 (08:51→17:15)
[2020-02-17] MEDS: pantoprazole DR 40 mg Tablet PO (08:52)
[2020-02-17] MEDS: donepezil 5 MG Tablet 10 MG PO (08:52)
[2020-02-17] MEDS: gabapentin 400 mg Capsule PO ×3 (08:52→21:22)
[2020-02-17] MEDS: polyethylene glycol 3350 Pkt 17 gm PO ×2 (08:52→17:16)
--- NOTE | 2020-02-17 13:49 | PM.PN ---
Subjective Subjective: Interval history: Decreased oxygen requirement, on 6 L HFNC, afebrile, hemodynamically stable, had 1775 mL urine output overnight. Will discontinue Rios catheter. He has been able to void once since removal of Rios catheter earlier today, has been ambulating in the hallway with nursing assistance several times today. Working on weaning down his oxygen requirement further if tolerated. Appetite is improving which he is quite excited about. Discussed options for disposition with him given his continued motivation and improvement in terms of ability to ambulate and perform some of his on self hygiene including home health versus SNF placement. He is quite independent at baseline, exercises every day and he is is equally independent, one of the daughters has been staying with them so he does have adequate support at home should he need it. His preference would be to return home with home health but he is willing to do what ever we would recommend. Called and spoke to his daughter Caroline Faulkner and updated her on patient's clinical status as well as discussion on disposition. She will discuss this further with the rest of the family before making a final decision. Medications: Reviewed: Yes Medication Review Details: Active Medications Generic Name Dose Route Start Last Admin Trade Name Freq PRN Reason Stop Dose Admin Acetaminophen 650 mg 01/31/20 17:29 02/12/20 20:55 Tylenol PO 650 mg Q6H PRN Administration Mild/Mod Pain Or Temp >/= 101 Albuterol Sulfate 2 puff 01/31/20 17:22 02/17/20 08:31 Ventolin INHALATION 2 puff Q4H.RESPIRATORY P RN Administration SHORTNESS OF VIVIEN TH Albuterol/Ipratrop ium 3 ml 02/06/20 04:00 02/15/20 15:52 Duoneb INHALATION Not Given Q4H.RESPIRATORY S CH Alprazolam 0.5 mg 02/14/20 10:08 02/16/20 21:20 Xanax PO 0.5 mg BID PRN Administration ANXIETY Apixaban 2.5 mg 02/15/20 18:00 02/17/20 08:51 Eliquis PO 2.5 mg BID RAND Administration Ascorbic Acid 500 mg 01/31/20 18:00 02/17/20 08:50 Vitamin C PO 500 mg BID RAND Administration Atorvastatin Calci um 20 mg 02/04/20 21:00 02/16/20 21:12 Lipitor PO 20 mg BEDTIME RAND Administration Benzonatate 100 mg 01/31/20 17:33 02/14/20 08:11 Tessalon Pearls PO 100 mg TID PRN Administration COUGH Clopidogrel Bisulf ate 75 mg 02/01/20 09:00 02/17/20 08:51 Plavix PO 75 mg DAILY RAND Administration Dexamethasone 6 mg 02/01/20 09:00 02/17/20 08:51 Decadron IVP 6 mg Q24H RAND Administration Docusate Calcium 240 mg 02/02/20 21:00 02/16/20 21:12 Surfak PO 240 mg BEDTIME RAND Administration Donepezil HCl 10 mg 02/01/20 09:00 02/17/20 08:52 Aricept PO 10 mg DAILY RAND Administration Gabapentin 400 mg 01/31/20 17:25 02/17/20 08:52 Neurontin PO 400 mg TID RAND Administration Guaifenesin 200 mg 01/31/20 17:33 Robitussin Oral Liq PO Q4H PRN COUGH AND CONGEST ION Levofloxacin 750 mg 02/17/20 06:00 02/17/20 06:18 Levaquin PO 750 mg DAILY@0600 RAND Administration Protocol Loratadine 10 mg 02/01/20 09:00 02/17/20 08:51 Claritin PO 10 mg DAILY RAND Administration Memantine 10 mg 01/31/20 18:00 02/17/20 08:51 Namenda PO 10 mg BID RAND Administration Ondansetron HCl 4 mg 01/31/20 17:29 02/14/20 12:20 Zofran IVP 4 mg Q6H PRN Administration vomiting, or N/V if npo Pantoprazole Sodiu m 40 mg 02/01/20 09:00 02/17/20 08:52 Protonix PO 40 mg DAILY RAND Administration Polyethylene Glyco l 17 gm 02/14/20 18:00 02/17/20 08:52 Miralax PO 17 gm BID RAND Administration Fluticasone/Salmet darvin 1 puff 02/15/20 20:00 02/17/20 08:31 Advair Diskus 25 0-50 INHALATION 1 puff BID.RESPIRATORY S CH Administration Senna/Docusate Sod ium 1 tab 02/02/20 20:27 10/24/20 08:11 Senna-S PO 1 tab DAILY PRN Administration CONSTIPATION Trazodone HCl 50 mg 01/31/20 21:00 02/16/20 21:12 Desyrel PO 50 mg BEDTIME RAND Administration Zinc Gluconate 50 mg 02/01/20 09:00 02/17/20 08:51 Zinc Gluconate PO 50 mg DAILY RAND Administration adhesive Allergy (Verified 01/31/20 11:08) ALGY-Rash Vitals/I&O/Wt Last Vital Signs Temp 97.7 F 02/17/20 03:48 Pulse 98 02/17/20 12:52 Resp 17 02/17/20 12:52 BP 136/78 02/17/20 09:00 Pulse Ox 93 02/17/20 12:52 02/16/20 02/17/20 02/17/20 22:59 06:59 14:59 Intake Total 2375 / 3055 110 / 3165 250 / 250 Output Total 2150 / 2150 900 / 3050 600 / 600 Balance 225 / 905 -790 / 115 -350 / -350 Weight last 48 hrs Weight 79.605 kg Weight 81.193 kg Physical Exam Const: COMMON NORMALS: no acute distress, patient oriented x3 and alert GENERAL APPEARANCE: cooperative and comfortable ORIENTATION/CONSCIOUSNESS: Yes awake OTHER: -Appears appropriate for age, very pleasant, resting quietly in bed HENMT: COMMON NORMALS: normocephalic, atraumatic and moist oral mucous membranes HEAD & SCALP: normocephalic and atraumatic GENERAL EAR: hearing grossly impaired Laterality: bilateral Eye: COMMON NORMALS: Equal, round and reactive pupils present, EOMs intact bilaterally and conjunctivae normal CONJUNCTIVA: Yes conjunctivae normal PUPIL: Yes Equal, round and reactive pupils present Neck/C-Spine: COMMON NORMALS: full ROM GENERAL: Yes normal visual inspection and Yes trachea midline Resp: COMMON NORMALS: normal respiratory effort, No retractions and No use of accessory muscles EFFORT & INSPECTION: Yes able to speak in complete sentences, Yes symmetric chest movement and No tachypneic AUSCULTATION: diminished lung sounds OTHER: -on 6 L NC; desaturates with exertion though compensates quite quickly Cardio: COMMON NORMALS: regular rate, regular rhythm, S1 normal heart sound present, S2 normal heart sound present and No murmurs present (Cardio) RATE: regular rate RHYTHM: regular rhythm HEART SOUNDS: S1 normal heart sound present and S2 normal heart sound present GI: COMMON NORMALS: Normal to inspection, nondistended, normoactive bowel sounds present, Soft to palpation and non-tender PALPATION: Yes Soft to palpation Extremity: COMMON NORMALS: normal to inspection, full ROM and no clubbing, cyanosis or edema; negative for no pedal edema Neuro: COMMON NORMALS: patient oriented x3, moves all extremities, no focal motor deficits, no sensory deficits noted and gait normal SENSORIUM/ORIENTATION: Yes alert Psych: COMMON NORMALS: mental status grossly normal, Normal thought process present, cooperative, normal affect and speech normal SPEECH: Yes normal speech THOUGHT PROCESS: Normal thought process present Skin: COMMON NORMALS: no rashes or lesions noted, no jaundice, no petechiae and no mottling GENERAL SKIN EXAM: no rashes or lesions noted Urinary Catheter Management^: Rios: Cath Placed During This Visit: yes, but has since been removed by the nurse Reason for Continuing Indwelling Catheter: Accurate Measurement of Urinary Output in Critically Ill Patients Urinary Catheter Date of Insertion: 02/08/20 Urinary Catheter Time of Insertion: 10:00 Date Urinary Catheter Removed: 02/17/20 Time Urinary Catheter Discontinued: 11:08 Data : 02/17/20 03:50 02/17/20 03:50 Micro: Microbiology 02/16/20 10:10 Gram Stain - Final Sputum - Expectorated Sputum Sputum Culture - Preliminary Gram Negative Rods 02/13/20 21:09 Sputum Culture - Final Sputum - Expectorated Sputum Stenotrophomonas maltophilia A&P Assessment and plan (1) COVID-19: -s/p 10 day course of remdesevir -gradually decreasing oxygen requirement though still high overall -continue dexamethasone -Isolation precautions -continue to monitor respiratory status, vital signs -Telemetry monitoring -improving inflammatory markers -Imaging stable -continue zinc, vitamin C, inhaler treatments, antitussives PRN, IS, pulmonary toilet -d/c Vanc/Imipenem/Azithromycin -sputum cx: Stenotrophomonas maltophilia; in light of imaging, COVID-19 infection this is likely reflective of a true infection so we will treat with Levaquin per sensitivity profile (day 2) -blood cx: negative -due to significant D-dimer elevation, was covered with therapeutic lovenox, CTA negative; this has since improved, continue Eliquis -did receive a dose of convalescent plasma on 02/10 (200 mL) -did not tolerate proning Status: Acute (2) Respiratory failure: -secondary to COVID-19 pneumonia; unable to exclude superimposed bacterial infection as well -as noted above -negative fluid balance overall; -9.6 L; received low dose lasix x 1 yesterday (02/14) -Echo: EF=55% Status: Acute Qualifiers: Chronicity: acute Respiratory failure complication: hypoxia Qualified Code(s): J96.01 - Acute respiratory failure with hypoxia (3) Trigeminal neuralgia: -continue gabapentin Status: Chronic (4) Hyperlipidemia: -continue statin Status: Chronic Qualifiers: Hyperlipidemia type: unspecified Qualified Code(s): E78.5 - Hyperlipidemia, unspecified (5) Dementia: -continue meds Status: Chronic Qualifiers: Dementia behavioral disturbance: without behavioral disturbance Dementia type: unspecified type Qualified Code(s): F03.90 - Unspecified dementia without behavioral disturbance (6) Anxiety: -anxiolytics PRN Status: Chronic Additional A&P Information -JESSICA, on CPAP qhs -Physical deconditioning; PT evaluation appreciated -cardiac diet as tolerated -GI ppx with PPI -DVT ppx not needed as on Eliquis -Dispo: with increased out of bed activity his strength is improving so may be able to return home with home health services versus SNF placement; family will discuss this further and let us know their decision -Code status: FULL code Attestations Medical Necessity Statement*: Patient requires hospitalization for continued management of COVID-19 pneumonia, pending appropriate disposition with continued physical deconditioning. Time Spent in Patient Care: Greater than 35 minutes (>than 50% of time spent in counselling and/or direct pt care on unit). Coding Level of Care Code Acute Customer Service Representative for g Fwd Exam Comprehensive Diagnoses COVID-19 U07.1 Respiratory failure J96.01 Chronicity: acute Respiratory failure complication: hypoxia Trigeminal neuralgia G50.0 Hyperlipidemia E78.5 Hyperlipidemia type: unspecified Dementia F03.90 Dementia behavioral disturbance: without behavioral disturbance Dementia type: unspecified type Anxiety F41.9
--- NOTE | 2020-02-17 16:34 | PC.SOCIAL ---
IMM Updated Explained to pt's family, via phone Pg 2 IMM. No questions voiced. Signed, dated, & timed copy in chart.
[2020-02-17 17:22] LABS: Blood Gas Sample Site RR
--- NOTE | 2020-02-17 18:30 | PC.NURSE ---
Received report on patient from Rodolfo BROTHERS. Assumed care at this time.
[2020-02-17] MEDS: ALPRAZolam 0.25 mg Tablet 0.5 MG PO (21:22)
[2020-02-17] MEDS: atorvastatin 40 mg Tablet 20 MG PO (21:22)
[2020-02-17] MEDS: trazodone 50 mg Tablet PO (21:22)
[2020-02-18] VITALS (32 sets, daily range): BP systolic 95–140; BP diastolic 59–119; PULSE 73–115; RESP 11–30; TEMP 36.8; O2SAT 80–97; BMI 24.5
[2020-02-18] MEDS: albuterol 8 gm MDI 2 PUFF INHALATION ×2 (01:41→08:43)
[2020-02-18 02:48] LABS: Basophils # 0.1 10^3/uL (0.0-0.1); Basophils % 0.5 %; Eosinophils # 0.2 10^3/uL (0.0-0.8); Hematocrit 42.3 % (42.0-52.0); Hemoglobin 14.2 g/dL (11.7-16.6); Lymphocytes # 1.5 10^3/uL (0.8-4.8); Lymphocytes % 13.2 %; Mean Corpuscular HGB Conc 33.6 g/dL (30.0-36.0); Mean Corpuscular Hemoglobin 31.9 pg (28.0-34.0); Mean Corpuscular Volume 95.1 fL (80-94); Monocytes # 0.7 10^3/uL (0.2-0.9); Monocytes % 6.4 %; Neutrophils % 74.4 %; Nucleated Red Blood Cells % 0 %; Platelet Count 374 10^3/cmm (130-400); Red Blood Count 4.45 10^6/uL (4.1-5.3); Red Cell Distribution Width 11.6 % (12.1-15.1)
[2020-02-18 03:19] LABS: Alanine Aminotransferase 53 U/L (0-41); Albumin Level 2.7 g/dL (3.5-5.2); Alkaline Phosphatase 99 IU/L (40-130); Anion Gap 10.4 (5-19); Aspartate Amino Transferase 36 U/L (0-40); Blood Urea Nitrogen 25 mg/dL (8-23); Calcium 8.6 mg/dL (8.5-10.5); Carbon Dioxide 30 mmol/L (22-29); Chloride 98 mmol/L (98-107); Globulin 3.1 g/dL (1.3-4.6); Glucose 92 mg/dL (65-115); Osmolality Calculated 282 mOsm/kg (285-295); Potassium 4.4 mmol/L (3.5-5.1); Sodium 134 mmol/L (136-145); Total Bilirubin 0.4 mg/dL (0.15-1.2); Total Protein 5.8 g/dL (6.6-8.7)
[2020-02-18] MEDS: levoFLOXacin 750 mg Tablet PO (06:50)
--- NOTE | 2020-02-18 07:18 | PC.OT ---
OT NOTE: PATIENT WAS ABLE TO DEMONSTRATE PLB AND ENERGY CONSERVATION TECHNIQUES WITH MINIMAL VERBAL CUEING. HANDOUTS GIVEN. PATIENT DOES NOT REQUIRE FURTHER OT; DISCHARGE OT.
--- NOTE | 2020-02-18 07:49 | P.PN_ITS ---
Subjective Subjective: Interval history: Decreased oxygen requirement, down to 4 L, afebrile, hemodynamically stable. Had 625 mL urine output overnight. Resting quietly in bed, ambulated in the hallway earlier this morning, reports feeling well, no acute overnight events reported. Looking forward to going home. Him and his family have opted for home with home health which case management is arranging. Updated Angely Arteaga over the phone. Medications: Reviewed: Yes Medication Review Details: Active Medications Generic Name Dose Route Start Last Admin Trade Name Freq PRN Reason Stop Dose Admin Acetaminophen 650 mg 01/31/20 17:29 02/12/20 20:55 Tylenol PO 650 mg Q6H PRN Administration Mild/Mod Pain Or Temp >/= 101 Albuterol Sulfate 2 puff 01/31/20 17:22 02/18/20 01:41 Ventolin INHALATION 2 puff Q4H.RESPIRATORY P RN Administration SHORTNESS OF VIVIEN TH Albuterol/Ipratrop ium 3 ml 02/06/20 04:00 02/15/20 15:52 Duoneb INHALATION Not Given Q4H.RESPIRATORY S CH Alprazolam 0.5 mg 02/14/20 10:08 02/17/20 21:22 Xanax PO 0.5 mg BID PRN Administration ANXIETY Apixaban 2.5 mg 02/15/20 18:00 02/17/20 17:15 Eliquis PO 2.5 mg BID RAND Administration Ascorbic Acid 500 mg 01/31/20 18:00 02/17/20 17:15 Vitamin C PO 500 mg BID RAND Administration Atorvastatin Calci um 20 mg 02/04/20 21:00 02/17/20 21:22 Lipitor PO 20 mg BEDTIME RAND Administration Benzonatate 100 mg 01/31/20 17:33 02/14/20 08:11 Tessalon Pearls PO 100 mg TID PRN Administration COUGH Clopidogrel Bisulf ate 75 mg 02/01/20 09:00 02/17/20 08:51 Plavix PO 75 mg DAILY RAND Administration Donepezil HCl 10 mg 02/01/20 09:00 02/17/20 08:52 Aricept PO 10 mg DAILY RAND Administration Gabapentin 400 mg 01/31/20 17:25 02/17/20 21:22 Neurontin PO 400 mg TID RAND Administration Guaifenesin 200 mg 01/31/20 17:33 Robitussin Oral Liq PO Q4H PRN COUGH AND CONGEST ION Levofloxacin 750 mg 02/17/20 06:00 02/18/20 06:50 Levaquin PO 750 mg DAILY@0600 RAND Administration Protocol Loratadine 10 mg 02/01/20 09:00 02/17/20 08:51 Claritin PO 10 mg DAILY RAND Administration Memantine 10 mg 01/31/20 18:00 02/17/20 17:15 Namenda PO 10 mg BID RAND Administration Ondansetron HCl 4 mg 01/31/20 17:29 02/14/20 12:20 Zofran IVP 4 mg Q6H PRN Administration vomiting, or N/V if npo Pantoprazole Sodiu m 40 mg 02/01/20 09:00 02/17/20 08:52 Protonix PO 40 mg DAILY RAND Administration Polyethylene Glyco l 17 gm 02/14/20 18:00 02/17/20 17:16 Miralax PO 17 gm BID RAND Administration Prednisone 40 mg 02/18/20 09:00 Prednisone PO DAILY RAND Fluticasone/Salmet darvin 1 puff 02/15/20 20:00 02/17/20 20:58 Advair Diskus 25 0-50 INHALATION 1 puff BID.RESPIRATORY S CH Administration Senna/Docusate Sod ium 1 tab 02/18/20 09:00 Senna-S PO BID RAND Trazodone HCl 50 mg 01/31/20 21:00 02/17/20 21:22 Desyrel PO 50 mg BEDTIME RAND Administration Zinc Gluconate 50 mg 02/01/20 09:00 02/17/20 08:51 Zinc Gluconate PO 50 mg DAILY RAND Administration adhesive Allergy (Verified 01/31/20 11:08) ALGY-Rash Vitals/I&O/Wt Last Vital Signs Temp 98.1 F 02/17/20 20:00 Pulse 97 02/18/20 05:00 Resp 11 L 02/18/20 05:00 BP 117/84 02/18/20 05:00 Pulse Ox 95 02/18/20 05:00 02/17/20 02/18/20 02/18/20 22:59 06:59 14:59 Intake Total 1775 / 2275 300 / 2575 Output Total 575 / 1350 450 / 1800 Balance 1200 / 925 -150 / 775 Weight last 48 hrs Weight 79.605 kg Weight 79.605 kg Physical Exam Const: COMMON NORMALS: no acute distress, patient oriented x3 and alert GENERAL APPEARANCE: cooperative and comfortable ORIENTATION/CONSCIOUSNESS: Yes awake OTHER: -Appears appropriate for age, very pleasant, resting quietly in bed HENMT: COMMON NORMALS: normocephalic, atraumatic and moist oral mucous membranes HEAD & SCALP: normocephalic and atraumatic GENERAL EAR: hearing grossly impaired Laterality: bilateral Eye: COMMON NORMALS: Equal, round and reactive pupils present, EOMs intact bilaterally and conjunctivae normal CONJUNCTIVA: Yes conjunctivae normal PUPIL: Yes Equal, round and reactive pupils present Neck/C-Spine: COMMON NORMALS: full ROM GENERAL: Yes normal visual inspecti on and Yes trachea midline Resp: COMMON NORMALS: normal respiratory effort, No retractions and No use of accessory muscles EFFORT & INSPECTION: Yes able to speak in complete sentences, Yes symmetric chest movement and No tachypneic AUSCULTATION: diminished lung sounds OTHER: -on 4 L NC; desaturates with exertion though compensates quite quickly Cardio: COMMON NORMALS: regular rate, regular rhythm, S1 normal heart sound present, S2 normal heart sound present and No murmurs present (Cardio) RATE: regular rate RHYTHM: regular rhythm HEART SOUNDS: S1 normal heart sound present and S2 normal heart sound present GI: COMMON NORMALS: Normal to inspection, nondistended, normoactive bowel sounds present, Soft to palpation and non-tender PALPATION: Yes Soft to palpation Extremity: COMMON NORMALS: normal to inspection, full ROM and no clubbing, cyanosis or edema; negative for no pedal edema Neuro: COMMON NORMALS: patient oriented x3, moves all extremities, no focal motor deficits, no sensory deficits noted and gait normal SENSORIUM/ORIENTATION: Yes alert Psych: COMMON NORMALS: mental status grossly normal, Normal thought process present, cooperative, normal affect and speech normal SPEECH: Yes normal speech THOUGHT PROCESS: Normal thought process present Skin: COMMON NORMALS: no rashes or lesions noted, no jaundice, no petechiae and no mottling GENERAL SKIN EXAM: no rashes or lesions noted Urinary Catheter Management^: Rios: Cath Placed During This Visit: yes, but has since been removed by the nurse Reason for Continuing Indwelling Catheter: Accurate Measurement of Urinary Output in Critically Ill Patients Urinary Catheter Date of Insertion: 02/08/20 Urinary Catheter Time of Insertion: 10:00 Date Urinary Catheter Removed: 02/17/20 Time Urinary Catheter Discontinued: 11:08 Data : 02/18/20 01:55 02/18/20 01:55 Micro: Microbiology 02/16/20 10:10 Gram Stain - Final Sputum - Expectorated Sputum Sputum Culture - Preliminary Gram Negative Rods A&P Assessment and plan (1) COVID-19: -s/p 10 day course of remdesevir -gradually decreasing oxygen requirement -continue steroids -Isolation precautions -continue to monitor respiratory status, vital signs -Telemetry monitoring -improving inflammatory markers -Imaging stable -continue zinc, vitamin C, inhaler treatments, antitussives PRN, IS, pulmonary toilet -d/c Vanc/Imipenem/Azithromycin -sputum cx: Stenotrophomonas maltophilia; in light of imaging, COVID-19 infection this is likely reflective of a true infection so we will treat with Levaquin per sensitivity profile (day 3) -blood cx: negative -due to significant D-dimer elevation, was covered with therapeutic lovenox, CTA negative; this has since improved, continue Eliquis -did receive a dose of convalescent plasma on 02/10 (200 mL) -did not tolerate proning -home oxygen evaluation as not oxygen dependent at baseline Status: Acute (2) Respiratory failure: -secondary to COVID-19 pneumonia; unable to exclude superimposed bacterial infection as well -as noted above -negative fluid balance overall; -8.5 L; received low dose lasix x 1 (02/14) -Echo: EF=55% Status: Acute Qualifiers: Chronicity: acute Respiratory failure complication: hypoxia Qualified Code(s): J96.01 - Acute respiratory failure with hypoxia (3) Trigeminal neuralgia: -continue gabapentin Status: Chronic (4) Hyperlipidemia: -continue statin Status: Chronic Qualifiers: Hyperlipidemia type: unspecified Qualified Code(s): E78.5 - Hyperlipidemia, unspecified (5) Dementia: -continue meds Status: Chronic Qualifiers: Dementia behavioral disturbance: without behavioral disturbance Dementia type: unspecified type Qualified Code(s): F03.90 - Unspecified dementia without behavioral disturbance (6) Anxiety: -anxiolytics PRN Status: Chronic Additional A&P Information -JESSICA, on CPAP qhs -Physical deconditioning; PT/OT evaluations appreciated -cardiac diet as tolerated -GI ppx with PPI -DVT ppx not needed as on Eliquis -Dispo: with increased out of bed activity his strength is improving so may be able to return home with home health services versus SNF placement; family and patient have agreed to home with home health which case management is arranging. Anticipate discharge tomorrow. -Code status: FULL code Attestations Medical Necessity Statement*: Patient requires hospitalization for continued management of COVID-19 pneumonia, pending appropriate disposition. Time Spent in Patient Care: 16 - 35 minutes (>than 50% of time spent in counselling and/or direct pt care on unit) . Coding Level of Care Code Acute [place] Worker for [facility] Fwd Exam Comprehensive Diagnoses COVID-19 U07.1 Respiratory failure J96.01 Chronicity: acute Respiratory failure complication: hypoxia Trigeminal neuralgia G50.0 Hyperlipidemia E78.5 Hyperlipidemia type: unspecified Dementia F03.90 Dementia behavioral disturbance: without behavioral disturbance Dementia type: unspecified type Anxiety F41.9
[2020-02-18] MEDS: donepezil 5 MG Tablet 10 MG PO (09:44)
[2020-02-18] MEDS: apixaban 5 mg Tablet 2.5 MG PO ×2 (09:44→18:03)
[2020-02-18] MEDS: polyethylene glycol 3350 Pkt 17 gm PO ×2 (09:45→18:05)
[2020-02-18] MEDS: clopidogrel 75 mg Tablet PO (09:45)
[2020-02-18] MEDS: loratadine 10 mg Tablet PO (09:45)
[2020-02-18] MEDS: pantoprazole DR 40 mg Tablet PO (09:45)
[2020-02-18] MEDS: memantine 5 mg tablet 10 MG PO ×2 (09:45→18:05)
[2020-02-18] MEDS: ascorbic acid 500 mg Tablet PO ×2 (09:46→18:05)
[2020-02-18] MEDS: gabapentin 400 mg Capsule PO ×3 (09:46→21:11)
[2020-02-18] MEDS: predniSONE 20 mg Tablet 40 MG PO (09:46)
[2020-02-18] MEDS: sennosides-docusate Tablet 1 TAB PO ×2 (09:47→18:05)
[2020-02-18] MEDS: zinc gluconate 50 mg Tablet PO (09:48)
--- NOTE | 2020-02-18 15:29 | PC.NURSE ---
Blood cultures drawn from left hand and right inner forearm and sent to lab
--- NOTE | 2020-02-18 16:02 | PC.NURSE ---
Left Midline IV noted clean dry and intact. IV dressing occlussive
[2020-02-18] MEDS: trazodone 50 mg Tablet PO (21:03)
[2020-02-18] MEDS: atorvastatin 40 mg Tablet 20 MG PO ×2 (21:03)
[2020-02-18] MEDS: ALPRAZolam 0.25 mg Tablet 0.5 MG PO (23:59)
[2020-02-19] VITALS (17 sets, daily range): BP systolic 100–131; BP diastolic 59–81; PULSE 77–96; RESP 12–32; TEMP 36.8–36.9; O2SAT 84–96
[2020-02-19] MEDS: levoFLOXacin 750 mg Tablet PO (07:36)
[2020-02-19] MEDS: ascorbic acid 500 mg Tablet PO (08:24)
[2020-02-19] MEDS: sennosides-docusate Tablet 1 TAB PO (08:24)
[2020-02-19] MEDS: pantoprazole DR 40 mg Tablet PO (08:24)
[2020-02-19] MEDS: clopidogrel 75 mg Tablet PO (08:24)
[2020-02-19] MEDS: predniSONE 20 mg Tablet 40 MG PO (08:24)
[2020-02-19] MEDS: zinc gluconate 50 mg Tablet PO (08:24)
[2020-02-19] MEDS: gabapentin 400 mg Capsule PO (08:25)
[2020-02-19] MEDS: donepezil 5 MG Tablet 10 MG PO (08:25)
[2020-02-19] MEDS: apixaban 5 mg Tablet 2.5 MG PO (08:26)
[2020-02-19] MEDS: memantine 5 mg tablet 10 MG PO (08:26)
[2020-02-19] MEDS: loratadine 10 mg Tablet PO (08:26)
[2020-02-19] MEDS: polyethylene glycol 3350 Pkt 17 gm PO (08:27)
--- NOTE | 2020-02-19 09:15 | PC.SOCIAL ---
IMM Updated Page 2 of IMM updated with spouse by phone. She verbalizes understanding. Initialed, dated, and timed and will be sent to medical records upon d/c from [facility] [place].
--- NOTE | 2020-02-19 09:52 | P.DS_ITS ---
Discharge Providers Date of Admission: 01/31/20 13:58 Date of Discharge: February 19, 2020 Attending Provider at Admission: Deloris Oquendo MD Attending Provider at Discharge: Deloris Oquendo MD Consults: None Primary Care Provider: Dr. Jonas Lowry Diagnoses at Discharge Discharge Diagnosis (1) COVID-19: Status: Acute Permanent problem details: -s/p 10 day course of remdesevir -gradually decreasing oxygen requirement -continue steroids -Isolation precautions -continue to monitor respiratory status, vital signs -Telemetry monitoring -improving inflammatory markers -Imaging stable -continue zinc, vitamin C, inhaler treatments, antitussives PRN, IS, pulmonary toilet -d/c Vanc/Imipenem/Azithromycin -sputum cx: Stenotrophomonas maltophilia; in light of imaging, COVID-19 infection this is likely reflective of a true infection so we will treat with Levaquin per sensitivity profile (day 4) -blood cx: negative -due to significant D-dimer elevation, was covered with therapeutic lovenox, CTA negative; this has since improved, continue Eliquis -did receive a dose of convalescent plasma on 02/10 (200 mL) -did not tolerate proning -home oxygen evaluation as not oxygen dependent at baseline (2) Respiratory failure: Status: Resolved Permanent problem details: -secondary to COVID-19 pneumonia; unable to exclude superimposed bacterial infection as well -as noted above -negative fluid balance overall; -8.5 L; received low dose lasix x 1 (02/14) -Echo: EF=55% Qualifiers: Chronicity: acute Respiratory failure complication: hypoxia Qualified Code(s): J96.01 - Acute respiratory failure with hypoxia (3) Trigeminal neuralgia: Status: Chronic Permanent problem details: -continue gabapentin (4) Hyperlipidemia: Status: Chronic Permanent problem details: -continue statin Qualifiers: Hyperlipidemia type: unspecified Qualified Code(s): E78.5 - Hyperlipidemia, unspecified (5) Dementia: Status: Chronic Permanent problem details: -continue meds Qualifiers: Dementia type: unspecified type Dementia behavioral disturbance: without behavioral disturbance Qualified Code(s): F03.90 - Unspecified dementia without behavioral disturbance (6) Anxiety: Status: Chronic Permanent problem details: -anxiolytics PRN Other Information Additional DC diagnoses/information: -JESSICA, on CPAP qhs -Physical deconditioning; PT/OT evaluations appreciated Reason for Visit Reason for Visit: CP; COVID+, RACHEL MCDERMOTT TESTED Hospital Course Hospital Course: Patient was admitted to the viral ICU secondary to having been found positive for COVID-19 infection. He initially required supplemental oxygen support and has throughout his hospital stay with gradually increasing requirement during the initial stage of his hospitalization. This in particular prolonged his stay though has been improving within the past several days. He was treated with remdesivir, received a total of 10 days worth of treatment in addition to empiric antibiotic therapy, supportive care, and a dose of convalescent plasma. He did require some diuresis and overall has maintained a negative fluid balance. Inflammatory markers have improved as have his overall symptoms. Blood cultures have consistently been negative, initial sputum culture was negative but repeat sputum cultures have grown stenotrophomonas maltophilia at which point he was switched to oral antibiotics per sensitivity profile. He will be continued on antibiotic therapy for several more days to complete her treatment course. Due to the length of his hospital stay he has been quite physically deconditioned though with decreasing oxygen requirement we have been able to have therapy work with him more consistently with noted improvement in his ability to ambulate for longer frequency and with decreased episodes of desaturation. For much of his hospital stay he has been unable to use CPAP which he uses at home secondary to an underlying history of obstructive sleep apnea. Over the past 48 hours his oxygen requirement has continued to decrease further and as the patient is not oxygen dependent at baseline, he has had a home oxygen evaluation done prior to discharge and appropriate DME arranged. Initially plan for disposition was correction facility due to the degree of physical deconditioning noted. However patient has been quite motivated and is quite active at baseline and with increasing activity during the day has had improvement in his ability to ambulate independently and get closer to his previous baseline. As such patient and family have opted for return home with home health services which have been arranged. He will require continued monitoring of his symptoms at home including temperature and oxygen saturation checks, is instructed on when to seek medical attention such as if worsening symptoms, persistently low oxygen levels or persistent fever. He is encouraged to continue frequent and proper handwashing, mask wearing and maintaining social distancing. Oral intake has consistently been improving, he has had good urine output even following removal of the Rios catheter. He has been hemodynamically stable and afebrile. Of note he was initially on therapeutic anticoagulation due to noted high D-dimer. With improvement he was switched to Eliquis. Discharge Summary: -Patient to follow-up with his primary care physician in 1 week. Physical Exam Const: COMMON NORMALS: no acute distress, patient oriented x3 and alert GENERAL APPEARANCE: cooperative and comfortable ORIENTATION/CONSCIOUSNESS: Yes awake OTHER: -Appears appropriate for age, very pleasant, resting quietly in bed HENMT: COMMON NORMALS: normocephalic, atraumatic and moist oral mucous membranes HEAD & SCALP: normocephalic and atraumatic GENERAL EAR: hearing grossly impaired Laterality: bilateral Eye: COMMON NORMALS: Equal, round and reactive pupils present, EOMs intact bilaterally and conjunctivae normal CONJUNCTIVA: Yes conjunctivae normal PUPIL: Yes Equal, round and reactive pupils present Neck/C-Spine: COMMON NORMALS: full ROM GENERAL: Yes normal visual inspection and Yes trachea midline Resp: COMMON NORMALS: normal respiratory effort, No retractions and No use of accessory muscles EFFORT & INSPECTION: Yes able to speak in complete sentences, Yes symmetric chest movement and No tachypneic AUSCULTATION: diminished lung sounds OTHER: -on 3 L NC; desaturates with exertion though compensates quite quickly Cardio: COMMON NORMALS: regular rate, regular rhythm, S1 normal heart sound present, S2 normal heart sound present and No murmurs present (Cardio) RATE: regular rate RHYTHM: regular rhythm HEART SOUNDS: S1 normal heart sound present and S2 normal heart sound present GI: COMMON NORMALS: Normal to inspection, nondistended, normoactive bowel sounds present, Soft to palpation and non-tender PALPATION: Yes Soft to palpation Extremity: COMMON NORMALS: normal to inspection, full ROM and no clubbing, cyanosis or edema; negative for no pedal edema Neuro: COMMON NORMALS: patient oriented x3, moves all extremities, no focal motor deficits, no sensory deficits noted and gait normal SENSORIUM/ORIENTATION: Yes alert Psych: COMMON NORMALS: mental status grossly normal, Normal thought process present, cooperative, normal affect and speech normal SPEECH: Yes normal speech THOUGHT PROCESS: Normal thought process present Skin: COMMON NORMALS: no rashes or lesions noted, no jaundice, no petechiae and no mottling GENERAL SKIN EXAM: no rashes or lesions noted Urinary Catheter Management^: Rios: Cath Placed During This Visit: yes, but has since been removed by the nurse Reason for Continuing Indwelling Catheter: Accurate Measurement of Urinary Output in Critically Ill Patients Urinary Catheter Date of Insertion: 02/08/20 Urinary Catheter Time of Insertion: 10:00 Date Urinary Catheter Removed: 02/17/20 Time Urinary Catheter Discontinued: 11:08 Discharge Data Data Completed and Pending: Completed Studies During Hospitalization Category Date Time Status CTA chest [CT ang io chest PE protcl [id number]] Routine Cat Scan 02/05/20 09:54 Completed XR chest 1V fermin ble [id number] Routine Exams 02/02/20 12:38 Completed XR chest 1V fermin ble [id number] Routine Exams 02/05/20 19:00 Completed XR chest 1V fermin ble [id number] Routine Exams 02/09/20 07:00 Completed XR chest 1V fermin ble [id number] Routine Exams 02/13/20 06:00 Completed XR chest 1V fermin ble [id number] Routine Exams 02/16/20 06:04 Completed XR chest 1V fermin ble [id number] Stat Exams 01/31/20 11:27 Completed CV echo complete* [id number] Routine Ultrasound 02/14/20 12:55 Completed Pending at discharge Category Date Time Status ABG [Arterial Blo od Gas W/O Coox] S tat Lab 02/11/20 09:30 Results Vitals: Last Vital Signs Temp 98.2 F 02/19/20 07:25 Pulse 80 02/19/20 09:00 Resp 19 H 02/19/20 09:00 BP 131/71 02/19/20 09:00 Pulse Ox 95 02/19/20 09:00 Discharge Plan Discharge Patient Disposition: Home Health Service Condition: Stable Prescriptions: New Vitamin C 500 mg Tablet 500 mg PO DAILY 30 Days Qty: 30 RF: 0 zinc gluconate 50 mg Tablet 50 mg PO DAILY Qty: 30 RF: 0 levofloxacin 750 mg Tablet 750 mg PO DAILY 14 Days Qty: 14 RF: 0 Continued atorvastatin 20 mg Tablet 20 mg PO DAILY RF: 0 trazodone 50 mg Tablet 50 mg PO BEDTIME RF: 0 donepezil 10 mg Tablet 10 mg PO DAILY RF: 0 gabapentin 400 mg Capsule 400 mg PO TID RF: 0 clopidogrel 75 mg Tablet 75 mg PO DAILY RF: 0 alprazolam 0.5 mg Tablet 0.5 mg PO BID PRN (Reason: Anxiety) RF: 0 loratadine 10 mg Tablet 10 mg PO DAILY RF: 0 memantine 10 mg Tablet 10 mg PO BID RF: 0 prednisone See Rx Instructions .ROUTE .COMPLEX RF: 0 Discharge Orders: Discharge Order (Routine); Ordered 02/19/20 Ordered By: Deloris Oquendo Other Ambulatory Orders: DME: Oxygen (Order) Location: None Selected Ordered By: Deloris Oquendo Referrals: Jonas Lowry [Other] - 4-7 days (Post hospital discharge follow up. Treated for COVID-19 pneumonia with 10-day course of remdesevir and a dose of convalescent plasma. ) [facility] [Outside] [facility] [Outside] Discharge Diet: Advance as tolerated and Regular Discharge Activity: Increase activity as tolerated, As per PT/OT instructions and Oxygen as instructed Activity Restrictions/Additional Instructions: -Please continue to monitor your symptoms at home particularly with regards to temperature and oxygen level. Please seek medical attention immediately should you notice low oxygen levels, fever, worsening symptoms -You will need to continue proper and frequent hand hygiene, mask wearing and social distancing particularly when out in the community -Please use supplemental oxygen as instructed Discharge Attestations Time Spent in Discharge Care*: greater than 30 min Specific Discharge Activities: Specific discharge activities: educating patient, educating and/or supporting family/caregiver, discussing with nurse case manager/social workers/dc planners, documenting/other paperwork and evaluating patient/reviewing data Status at Discharge: Cognitive status at discharge: cognitively intact , Behavioral status at discharge: cooperative and independent in ADL's , Functional status at discharge: other assisted ambulation Overall status at discharge: patient is progressing back to baseline Quality Metrics Clinical Quality Measures During this hospital stay, did patient experience: None Coding Level of Care Code Acute [employer] for [facility] Diagnoses COVID-19 U07.1 Respiratory failure J96.01 Chronicity: acute Respiratory failure complication: hypoxia Trigeminal neuralgia G50.0 Hyperlipidemia E78.5 Hyperlipidemia type: unspecified Dementia F03.90 Dementia type: unspecified type Dementia behavioral disturbance: without behavioral disturbance Anxiety F41.9
--- NOTE | 2020-02-20 13:45 | PC.SOCIAL ---
Attempted to call the patient on cell phone. No answer, left a voicemail.
--- NOTE | 2020-02-20 14:40 | PC.SOCIAL ---
Addendum entered by Keely Barnes 02/20/20 14:45: Patient has HH through [facility], nurse will be there today at 3PM. Original Note: Spoke with the patient and his on the phone. She stated that her is doing amazing and really appreciated the [facility] staff for caring for her as well as they did. She was very very appreciative and asked if this insurance underwriter sales would let them know that. I did just that. The stated that her got a shower and a heair cut today and was walking around the house today wth his oxygen only on a 4. When asked if they understood the DC instruction, stated that they did and had no questions. She did state that they had to order the zinc but it should be here tomorrow. We spoke about signs and symptoms to watch for such as; blue lips or face, fever of 104 or higher, trouble breathing or catching breath, chest pain lasting longer than 5 minute, confusion or trouble waking up. We also spoke about ways to improve the immune system, these included; eating and drinking well, eating fruits and vegetables, lean meat, low fat dairy products, keeping up with immunizations such as flu/pneumonia/shingles shots, going to all appointments and follow ups, lessening and stress. We also spoke about ways to stop or prevent the spread of the COVID 19. These included; social distancing at all times, washing hands longer than 20 seconds with a good lather, sanitizing surfaces in home and in vehicle, masking up when possible and washing any cloth masks after use and allow them to dry completely before next use, sneezing or coughing into arm, restricting company or going out in public. We spoke a while about the benefits of plasma donation. She stated that they would like to donate and wanted information about it. I mailed the patient info. The is very supportive and wrote everything down as I was talking.
--- NOTE | 2020-03-01 11:53 | PC.RESP ---
Saturation 87% on 4lpm
== END 2020-02-19 11:55 | disposition home health service (06) | DRG 177 ==
LOC: ER 14:01 → ICU 14:16
PROVIDERS: Emergency Medicine; Internal Medicine; Admitting Provider Family Medicine; Visit Provider Family Medicine
DX: U07.1 COVID-19 (principal); J12.89 Other viral pneumonia; J96.01 Acute respiratory failure with hypoxia; J15.8 Pneumonia due to other specified bacteria; F41.9 Anxiety disorder, unspecified; F03.90 Unspecified dementia, unspecified severity, without behavioral disturbance, psychotic disturbance, mood disturbance, and anxiety; E78.5 Hyperlipidemia, unspecified; G47.33 Obstructive sleep apnea (adult) (pediatric); G50.0 Trigeminal neuralgia; Z95.1 Presence of aortocoronary bypass graft; Z87.891 Personal history of nicotine dependence
CPT/HCPCS: 12345; 36415; 36430; 36569; 36592; 36600; 51702; 71045; 71275; 80048; 80051; 80053; 80202; 81001; 82550; 82728; 82803; 82810; 83605; 83615; 83735; 83880; 83986; 84145; 84484; 85025; 85378; 85384; 85610; 86140; 86850; 86900; 86927; 87040; 87070; 87077; 87086; 87186; 87205; 87426; 87641; 87804; 93005; 93306; 94640; 94660; 94664; 96372; 96375; 97110; 97116; 97161; 97165; 97530; 99284; J0456; J0743; J1100; J1650; J1940; J2405; J2543; J3370; J3535; J7050; J7512; J7626; P9017; Q0144; Q9967

== ENCOUNTER 2020-04-13 10:44 | Outpatient (CLI) | payer MEDICARE, OTHER, SELFPAY ==
--- NOTE | 2020-04-13 10:55 | XRR_ITS ---
PROCEDURE INFORMATION: Exam: XR Chest, 2 Views Exam date and time: 04/13/2020 11:00 AM Age: 79 years old Clinical indication: Condition or disease; Lung condition and disease; Pneumonia; Other: Not specified; Prior surgery; Surgery type: Cabg; Additional info: Resolution of pnenumonia TECHNIQUE: Imaging protocol: XR of the chest Views: 2 views. COMPARISON: CR XR chest 1V portable [id number] 02/16/2020 6:38 AM FINDINGS: Lungs: Subtle interstitial prominence within the right upper lobe and left retrocardiac region persist. Lungs are otherwise well aerated. Pleural space: Unremarkable. No pleural effusion. No pneumothorax. Heart/Mediastinum: Unremarkable. No cardiomegaly. Bones/joints: Prior sternotomy XR/XR chest 2V* [id number] IMPRESSION: Subtle interstitial prominence within the right upper lobe and left retrocardiac region persist. Lungs are otherwise well aerated. Much improved.
== END 2020-04-13 10:45 | disposition home or self-care (01) ==
PROVIDERS: PCP Student in an Organized Health Care Education/Training Program; Visit Provider Internal Medicine Pulmonary Disease
DX: J18.9 Pneumonia, unspecified organism (principal); Z95.1 Presence of aortocoronary bypass graft
CPT/HCPCS: 71046

== ENCOUNTER 2020-04-26 20:00 | Outpatient (CLI) | payer MEDICARE, OTHER, SELFPAY | END 2020-04-26 20:01 | disposition home or self-care (01) | LOC: SLEEP 04-27 08:53 | PROVIDERS: PCP Student in an Organized Health Care Education/Training Program; Visit Provider Internal Medicine Pulmonary Disease | DX: G47.33 Obstructive sleep apnea (adult) (pediatric) (principal) | CPT/HCPCS: 95811 ==

== ENCOUNTER → 2020-04-27 12:05 | Outpatient (BNVA) | payer MEDICARE, OTHER, SELFPAY | PROVIDERS: PCP Student in an Organized Health Care Education/Training Program; Visit Provider Internal Medicine Pulmonary Disease | DX: R06.02 Shortness of breath (principal) | CPT/HCPCS: 87635 ==

== ENCOUNTER 2020-05-03 07:46 | Outpatient (CLI) | payer MEDICARE, OTHER, SELFPAY ==
--- NOTE | 2020-05-03 14:18 | PFTS_ITS ---
Date of Study:05/03/20 Date of Dictation: MECHANICS: Forced vital capacity (FVC) is reduced. Forced expiratory volume in one second (FEV1) is normal. FEV1/FVC is normal. FLOW VOLUME LOOP: Narrow. LUNG VOLUMES: Total lung capacity (TLC) is reduced. Residual volume (RV) is reduced. DIFFUSING CAPACITY FOR CARBON MONOXIDE: Moderately reduced. INTERPRETATION: The pulmonary function tests are consistent with mild restriction. The total lung capacity and residual volume are also reduced. The inspiratory capacity is reduced and expiratory reserve volume is preserved. The combination of mild restriction on spirometry with reduced inspiratory capacity and relatively preserved expiratory reserve volume is likely suggestive of intrathoracic cause of restriction. Gas exchange (DLCO) is moderately reduced. MTDD
== END 2020-05-03 07:47 | disposition home or self-care (01) ==
LOC: RT 07:48
PROVIDERS: PCP Student in an Organized Health Care Education/Training Program; Visit Provider Internal Medicine Pulmonary Disease
DX: J44.9 Chronic obstructive pulmonary disease, unspecified (principal)
CPT/HCPCS: 94010; 94618; 94726; 94729

== ENCOUNTER → 2020-09-07 08:36 | Outpatient (BNVA) | payer MEDICARE, OTHER, SELFPAY | PROVIDERS: PCP Student in an Organized Health Care Education/Training Program; Visit Provider Internal Medicine | DX: M25.50 Pain in unspecified joint (principal); G93.3 Postviral and related fatigue syndromes; J98.4 Other disorders of lung; Z11.59 Encounter for screening for other viral diseases; Z79.899 Other long term (current) drug therapy; Z87.891 Personal history of nicotine dependence | CPT/HCPCS: 99204; 99205 ==

== ENCOUNTER 2020-09-07 10:15 | Outpatient (CLI) | payer MEDICARE, OTHER, SELFPAY ==
--- NOTE | 2020-09-07 10:25 | XR_ITS ---
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 No pneumonia. No pneumothorax. Ribs: No rib fractures or bone destruction identified. XR/XR ribs BI mn 4V w CXR1V 13661 IMPRESSION: No rib fractures or destructive lesions.
--- NOTE | 2020-09-07 10:25 | XR_ITS ---
WS: [id number] LEFT HAND: 2 VIEW(S) TECHNIQUE: PA and lateral. 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 No acute fracture or dislocation. Mild interphalangeal joint space narrowing. No erosions. XR/XR hand LT 2V 14035 IMPRESSION: Mild osteoarthritis.
--- NOTE | 2020-09-07 10:25 | XR_ITS ---
WS: [id number] LEFT FOOT: 2 VIEW(S) TECHNIQUE: AP and lateral. HISTORY: M25.50 - Pain in unspecified joint COMPARISON: None available. No acute fracture or dislocation. Normal tarsal/metatarsal alignment. No soft tissue abnormality or bone destruction. XR/XR foot LT 2V [id number] IMPRESSION: Normal LEFT foot.
--- NOTE | 2020-09-07 10:25 | XR_ITS ---
WS: [id number] RIGHT HAND: 2 VIEW(S) TECHNIQUE: PA and lateral. 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 No acute fracture or dislocation. Moderate interphalangeal joint space narrowing. Mild soft tissue edema around the fingers. No erosion s. No subluxation. XR/XR hand RT 2V [id number] IMPRESSION: Mild osteoarthritis.
--- NOTE | 2020-09-07 10:25 | XR_ITS ---
WS: [id number] RIGHT FOOT: 2 VIEW(S) TECHNIQUE: AP and lateral. HISTORY: M25.50 - Pain in unspecified joint COMPARISON: None available. No acute fracture or dislocation. Moderate asymmetric narrowing of the first MTP joint. No erosions. Enthesopathy at the Achilles tendo n. No soft tissue abnormality or bone destruction. XR/XR foot RT 2V [id number] IMPRESSION: 1. Moderate osteoarthritis at the first MTP joint. 2. No erosions.
[2020-09-07 12:11] LABS: Basophils # 0.1 10^3/uL (0.0-0.1); Eosinophils # 0.2 10^3/uL (0.0-0.8); Eosinophils % 2.6 %; Hematocrit 47.7 % (42.0-52.0); Hemoglobin 16.1 g/dL (11.7-16.6); Lymphocytes # 1.3 10^3/uL (0.8-4.8); Lymphocytes % 21.6 %; Mean Corpuscular HGB Conc 33.8 g/dL (30.0-36.0); Mean Corpuscular Hemoglobin 31.9 pg (28.0-34.0); Mean Corpuscular Volume 94.5 fL (80-94); Mean Platelet Volume 8.7 fL (7.4-10.4); Monocytes # 0.6 10^3/uL (0.2-0.9); Monocytes % 9.2 %; Neutrophils % 64.8 %; Nucleated Red Blood Cells % 0 %; Platelet Count 202 10^3/cmm (130-400); Red Blood Count 5.05 10^6/uL (4.1-5.3); Red Cell Distribution Width 12.6 % (12.1-15.1); White Blood Count 6.2 10^3/uL (4.0-10.0)
[2020-09-07 12:50] LABS: 25 Hydroxy Vitamin D 28 ng/mL (30-100); Alanine Aminotransferase 17 U/L (0-41); Albumin Level 4.4 g/dL (3.5-5.2); Alkaline Phosphatase 101 IU/L (40-130); Anion Gap 11.6 (5-19); Aspartate Amino Transferase 20 U/L (0-40); Blood Urea Nitrogen 22 mg/dL (8-23); C Reactive Protein 0.4 mg/L (0.0-4.9); Calcium 8.8 mg/dL (8.5-10.5); Carbon Dioxide 29 mmol/L (22-29); Chloride 104 mmol/L (98-107); Creatine Phosphokinase 199 U/L (39-308); Ferritin 82 ng/mL (30-400); Glucose 81 mg/dL (65-115); Iron 82 ug/dL (59-158); Magnesium 2.3 mg/dL (1.7-2.3); Osmolality Calculated 292 mOsm/kg (285-295); Phosphorus 2.8 mg/dL (2.5-4.5); Potassium 4.6 mmol/L (3.5-5.1); Sodium 140 mmol/L (136-145); Thyroid Stimulating Hormone 1.55 uIU/mL (0.27-4.20); Total Bilirubin 0.5 mg/dL (0.15-1.2); Total Protein 7.4 g/dL (6.6-8.7); Vitamin B12 532 pg/mL (232-1245)
[2020-09-07 13:08] LABS: Cortisol Random 7.71 ug/dL (2.47-19.5); Hepatitis B Core AB, Total Non-Reactive (Nonreactive); Hepatitis B Surface Antigen Non-Reactive (Nonreactive); Hepatitis C Virus Antibody Non-Reactive (Nonreactive)
[2020-09-07 13:34] LABS: Erythrocyte Sedimentation Rate 7 mm/hr (0-10)
[2020-09-07 13:44] LABS: Testosterone Total 612.5 ng/dL (193-740)
[2020-09-08 10:13] LABS: CENTROMERE B ANTIBODY <1.0 NEG AI (<1.0 NEG); JO-1 ANTIBODY <1.0 NEG AI (<1.0 NEG); RNP ANTIBODY <1.0 NEG AI (<1.0 NEG); SCL-70 ANTIBODY <1.0 NEG AI (<1.0 NEG); SJOGREN'S ANTIBODY (SS-A) <1.0 NEG AI (<1.0 NEG); SM ANTIBODY <1.0 NEG AI (<1.0 NEG); SS-B <1.0 NEG AI (<1.0 NEG)
[2020-09-08 11:22] LABS: COMPLEMENT COMPONENT C3C 116 mg/dL (82-185); COMPLEMENT COMPONENT C4C 13 mg/dL (15-53)
[2020-09-08 12:27] LABS: COMPLEMENT, TOTAL (CH50) 52 U/mL (31-60)
[2020-09-08 15:48] LABS: Cyclic Citrullinated Peptide <16 UNITS
[2020-09-08 16:23] LABS: THYROID PEROXIDASE ANTIBODIES <1 IU/mL (<9)
[2020-09-09 15:34] LABS: ANA SCREEN, IFA POSITIVE (NEGATIVE)
[2020-09-12 23:53] LABS: DNA AB (DS) CRITHIDIA,IFA NEGATIVE (NEGATIVE)
== END 2020-09-07 10:16 | disposition home or self-care (01) ==
PROVIDERS: PCP Student in an Organized Health Care Education/Training Program; Visit Provider Internal Medicine
DX: G93.3 Postviral and related fatigue syndromes (principal); J98.4 Other disorders of lung; M25.50 Pain in unspecified joint; R53.83 Other fatigue; Z87.891 Personal history of nicotine dependence; D86.9 Sarcoidosis, unspecified; Z51.81 Encounter for therapeutic drug level monitoring; Z11.59 Encounter for screening for other viral diseases
CPT/HCPCS: 36415; 71111; 73120; 73620; 80053; 82306; 82533; 82550; 82607; 82728; 83540; 83735; 84100; 84403; 84443; 85025; 85651; 86140; 86160; 86162; 86235; 86255; 86376; 86431; 86704; 86803; 87340

== ENCOUNTER → 2020-09-21 13:43 | Outpatient (BNVA) | payer MEDICARE, OTHER, SELFPAY | PROVIDERS: PCP Student in an Organized Health Care Education/Training Program; Visit Provider Internal Medicine | DX: M19.90 Unspecified osteoarthritis, unspecified site (principal); R76.8 Other specified abnormal immunological findings in serum; R53.83 Other fatigue; Z87.891 Personal history of nicotine dependence | CPT/HCPCS: 99214 ==

== ENCOUNTER → 2020-12-16 14:04 | Outpatient (BNVA) | payer MEDICARE, OTHER, SELFPAY | PROVIDERS: PCP Student in an Organized Health Care Education/Training Program; Visit Provider Internal Medicine Rheumatology | DX: R76.8 Other specified abnormal immunological findings in serum (principal); M25.50 Pain in unspecified joint; Z79.899 Other long term (current) drug therapy; M19.90 Unspecified osteoarthritis, unspecified site | CPT/HCPCS: 36415; 80053; 85025; 85651; 86140; 86160 ==

== ENCOUNTER → 2020-12-28 14:01 | Outpatient (BNVA) | payer MEDICARE, OTHER, SELFPAY | PROVIDERS: PCP Student in an Organized Health Care Education/Training Program; Visit Provider Internal Medicine | DX: M19.90 Unspecified osteoarthritis, unspecified site (principal); R76.8 Other specified abnormal immunological findings in serum; G62.9 Polyneuropathy, unspecified; R53.83 Other fatigue; Z87.891 Personal history of nicotine dependence | CPT/HCPCS: 99213; 99214 ==

== ENCOUNTER → 2021-01-14 15:09 | Outpatient (BNVA) | payer MEDICARE, OTHER, SELFPAY | PROVIDERS: PCP Student in an Organized Health Care Education/Training Program; Visit Provider Internal Medicine Pulmonary Disease | DX: Z01.812 Encounter for preprocedural laboratory examination (principal); Z20.822 Contact with and (suspected) exposure to COVID-19 | CPT/HCPCS: 87635 ==

== ENCOUNTER → 2021-01-17 11:59 | Outpatient (BNVA) | payer MEDICARE, OTHER, SELFPAY | PROVIDERS: PCP Student in an Organized Health Care Education/Training Program; Referring Provider Internal Medicine; Visit Provider Specialist | DX: G56.23 Lesion of ulnar nerve, bilateral upper limbs (principal); G62.89 Other specified polyneuropathies; Z87.891 Personal history of nicotine dependence | CPT/HCPCS: 95910 ==

== ENCOUNTER 2021-01-18 10:08 | Outpatient (CLI) | payer MEDICARE, OTHER, SELFPAY ==
--- NOTE | 2021-01-18 13:01 | PFTS_ITS ---
Date of Study:01/18/21 Date of Dictation: 01/19/2021 MECHANICS: Prebronchodilator forced vital capacity (FVC) is normal. Prebronchodilator forced expiratory volume in one second (FEV1) is normal. FEV1/FVC is normal. There is no postbronchodilator study FLOW VOLUME LOOP: Normal . LUNG VOLUMES: Total lung capacity (TLC) is normal. Residual volume (RV) is normal . DIFFUSING CAPACITY FOR CARBON MONOXIDE: Mildly decreased 62% . INTERPRETATION: The prebronchodilator spirometry and lung volumes are normal. There is mild gas transfer defect. Clinical correlation recommended. MTDD
== END 2021-01-18 10:09 | disposition home or self-care (01) ==
LOC: RT 10:11
PROVIDERS: PCP Student in an Organized Health Care Education/Training Program; Visit Provider Internal Medicine Pulmonary Disease
DX: J98.4 Other disorders of lung (principal)
CPT/HCPCS: 94010; 94726; 94729

== ENCOUNTER → 2021-03-01 09:30 | Outpatient (BNVA) | payer MEDICARE, OTHER, SELFPAY | PROVIDERS: PCP Student in an Organized Health Care Education/Training Program; Visit Provider Internal Medicine | DX: R76.8 Other specified abnormal immunological findings in serum (principal); M25.50 Pain in unspecified joint; G62.9 Polyneuropathy, unspecified; R53.83 Other fatigue; J98.4 Other disorders of lung; G56.20 Lesion of ulnar nerve, unspecified upper limb; M54.2 Cervicalgia; Z82.61 Family history of arthritis; Z87.891 Personal history of nicotine dependence | CPT/HCPCS: 99214 ==

== ENCOUNTER 2021-03-01 13:43 | Outpatient (CLI) | payer MEDICARE, OTHER, SELFPAY ==
--- NOTE | 2021-03-01 13:50 | XR_ITS ---
WS: [id number] Thoracic spine, 3 views, 03/01/2021 Clinical Data: G56.20 - Lesion of ulnar nerve, unspecified upper limb Comparison: None. Findings: No compression fractures are seen. The disc heights are normal. Osteoarthritis of all of the thoracic vertebral bodies is noted. The paravertebral regions are normal . There are midline sternotomy sutures with mediastinal clips. XR/XR thoracic spine 3V* [id number] Impression: Osteoarthritis of the thoracic vertebral bodies.
--- NOTE | 2021-03-01 13:50 | XR_ITS ---
WS: [id number] Lateral views of cervical spine in the flexion, extension and neutral positions. 03/01/2021 Clinical Data: G56.20 - Lesion of ulnar nerve, unspecified upper limb Comparison: None. Findings: Anterior osteoarthritic spurring from C4 through C7 is seen. There is degenerative disc narrowing at C4-C5 and C6-C7. No prevertebral soft tissue swelling is noted. There is no limitation of motion or s ubluxation on flexion or extension. XR/XR cervical spine fl/ex [id number] Impression: 1. Degenerative disc narrowing at C4-C5 and C6-C7. 2. Anterior osteophyte at C4-C7. 3. Negative for subluxation or limitation of motion on flexion or extension.
[2021-03-01 14:39] LABS: Add Urine Microscopic? NO; Charge for UA Resulting for Rev
[2021-03-01 14:40] LABS: Basophils # 0.1 10^3/uL (0.0-0.1); Basophils % 0.8 %; Eosinophils # 0.1 10^3/uL (0.0-0.8); Eosinophils % 2.2 %; Hematocrit 44.1 % (42.0-52.0); Hemoglobin 15.5 g/dL (11.7-16.6); Lymphocytes # 1.1 10^3/uL (0.8-4.8); Lymphocytes % 18.8 %; Mean Corpuscular HGB Conc 35.1 g/dL (30.0-36.0); Mean Corpuscular Volume 93.8 fl (80-94); Mean Platelet Volume 8.7 fL (7.4-10.4); Monocytes # 0.5 10^3/uL (0.2-0.9); Monocytes % 8.6 %; Neutrophils % 68.9 %; Nucleated Red Blood Cells % 0 %; Platelet Count 181 10^3/cmm (130-400); Red Cell Distribution Width 11.9 % (12.1-15.1)
[2021-03-01 14:43] LABS: Bilirubin Urine Neg (Negative); Blood Urine Neg (Negative); Glucose Urine UA Norm (Normal); Ketones Urine Negative (Negative); Leukocyte Esterase Urine Negative (Negative); Nitrate Urine Negative (Negative); Protein Urine Neg (Negative); Specific Gravity, Urine 1.005 (1.005-1.030); Urine Appearance Clear (CLEAR); Urine Color Yellow (Yellow); Urobilinogen Urine Norm (Negative); pH Urine 7 (5-7)
[2021-03-01 15:03] LABS: Alanine Aminotransferase 18 U/L (0-41); Albumin Level 4.1 g/dL (3.5-5.2); Alkaline Phosphatase 106 IU/L (40-130); Anion Gap 14.2 (5-19); Aspartate Amino Transferase 20 U/L (0-40); Blood Urea Nitrogen 17 mg/dL (8-23); C Reactive Protein 0.3 mg/L (0.0-4.9); Calcium 9.1 mg/dL (8.5-10.5); Carbon Dioxide 26 mmol/L (22-29); Chloride 101 mmol/L (98-107); Globulin 2.5 g/dL (1.3-4.6); Glucose 106 mg/dL (65-115); Osmolality Calculated 286 mOsm/kg (285-295); Potassium 4.2 mmol/L (3.5-5.1); Sodium 137 mmol/L (136-145); Total Bilirubin 0.4 mg/dL (0.15-1.2); Total Protein 6.6 g/dL (6.6-8.7)
[2021-03-01 22:16] LABS: Complement C3 99 mg/dL (90-180)
[2021-03-03 19:25] LABS: Erythrocyte Sedimentation Rate 2 mm/hr (0-10)
== END 2021-03-01 13:44 | disposition home or self-care (01) ==
LOC: RAD 13:49
PROVIDERS: PCP Student in an Organized Health Care Education/Training Program; Visit Provider Internal Medicine
DX: G56.20 Lesion of ulnar nerve, unspecified upper limb (principal); G62.9 Polyneuropathy, unspecified; M19.90 Unspecified osteoarthritis, unspecified site; M25.50 Pain in unspecified joint; M54.2 Cervicalgia
CPT/HCPCS: 72040; 72072; 80053; 81003; 85025; 85651; 86140; 86160

== ENCOUNTER 2021-03-22 06:00 | Outpatient (RCR) | payer MEDICARE, OTHER, SELFPAY | END 2021-03-22 23:59 | disposition home or self-care (01) | LOC: SOT 06:00 | PROVIDERS: PCP Student in an Organized Health Care Education/Training Program; Referring Provider Internal Medicine; Visit Provider Internal Medicine | DX: G56.20 Lesion of ulnar nerve, unspecified upper limb (principal); M19.90 Unspecified osteoarthritis, unspecified site; G62.9 Polyneuropathy, unspecified; M54.2 Cervicalgia; M25.50 Pain in unspecified joint | CPT/HCPCS: 97165 ==

== ENCOUNTER 2021-03-23 06:00 | Outpatient (RCR) | payer MEDICARE, OTHER, SELFPAY | END 2021-04-22 23:59 | disposition home or self-care (01) | LOC: SOT 06:00 | PROVIDERS: PCP Student in an Organized Health Care Education/Training Program; Referring Provider Internal Medicine; Visit Provider Internal Medicine | DX: G56.20 Lesion of ulnar nerve, unspecified upper limb (principal); M25.50 Pain in unspecified joint; M19.90 Unspecified osteoarthritis, unspecified site; G62.9 Polyneuropathy, unspecified; M54.2 Cervicalgia | CPT/HCPCS: 97022; 97110; 97140; 97168 ==

== ENCOUNTER 2021-05-04 12:22 | Outpatient (CLI) | payer MEDICARE, OTHER, SELFPAY ==
[2021-05-04 13:26] LABS: Basophils # 0.1 10^3/uL (0.0-0.1); Basophils % 0.8 %; Eosinophils # 0.2 10^3/uL (0.0-0.8); Eosinophils % 3.1 %; Hematocrit 47.1 % (42.0-52.0); Hemoglobin 16.2 g/dL (11.7-16.6); Lymphocytes # 1.1 10^3/uL (0.8-4.8); Lymphocytes % 14.9 %; Mean Corpuscular HGB Conc 34.4 g/dL (30.0-36.0); Mean Corpuscular Hemoglobin 32.9 pg (28.0-34.0); Mean Corpuscular Volume 95.7 fl (80-94); Mean Platelet Volume 8.9 fL (7.4-10.4); Monocytes # 0.6 10^3/uL (0.2-0.9); Monocytes % 8.7 %; Neutrophils # 5.27 10^3/uL (1.8-7.7); Nucleated Red Blood Cells % 0 %; Platelet Count 189 10^3/cmm (130-400); Red Blood Count 4.92 10^6/uL (4.1-5.3); Red Cell Distribution Width 11.8 % (12.1-15.1); White Blood Count 7.3 10^3/uL (4.0-10.0)
[2021-05-04 13:39] LABS: Erythrocyte Sedimentation Rate 8 mm/hr (0-10)
[2021-05-04 13:46] LABS: Alanine Aminotransferase 21 U/L (0-41); Alkaline Phosphatase 114 IU/L (40-130); Anion Gap 17.7 (5-19); Aspartate Amino Transferase 25 U/L (0-40); Blood Urea Nitrogen 18 mg/dL (8-23); C Reactive Protein 0.7 mg/L (0.0-4.9); Calcium 8.6 mg/dL (8.5-10.5); Carbon Dioxide 20 mmol/L (22-29); Chloride 103 mmol/L (98-107); Globulin 2.6 g/dL (1.3-4.6); Glucose 93 mg/dL (65-115); Osmolality Calculated 284 mOsm/kg (285-295); Potassium 4.7 mmol/L (3.5-5.1); Sodium 136 mmol/L (136-145); Total Bilirubin 0.5 mg/dL (0.15-1.2); Total Protein 6.6 g/dL (6.6-8.7)
== END 2021-05-04 12:23 | disposition home or self-care (01) ==
LOC: LAB 12:28
PROVIDERS: PCP Family Medicine; Visit Provider Internal Medicine
DX: M25.50 Pain in unspecified joint (principal); R76.8 Other specified abnormal immunological findings in serum; Z79.899 Other long term (current) drug therapy
CPT/HCPCS: 36415; 80053; 85025; 85651; 86140

== ENCOUNTER → 2021-05-17 10:04 | Outpatient (BNVA) | payer MEDICARE, OTHER, SELFPAY | PROVIDERS: PCP Family Medicine; Visit Provider Internal Medicine | DX: R76.8 Other specified abnormal immunological findings in serum (principal); M25.50 Pain in unspecified joint; R53.83 Other fatigue; Z87.891 Personal history of nicotine dependence | CPT/HCPCS: 99214 ==

== ENCOUNTER → 2021-06-21 09:48 | Outpatient (BNVA) | payer MEDICARE, OTHER, SELFPAY | PROVIDERS: PCP Family Medicine; Visit Provider Internal Medicine Cardiovascular Disease | DX: R00.1 Bradycardia, unspecified (principal); G47.33 Obstructive sleep apnea (adult) (pediatric); E78.5 Hyperlipidemia, unspecified | CPT/HCPCS: 99204 ==

== ENCOUNTER → 2021-08-18 11:18 | Outpatient (BNVA) | payer MEDICARE, OTHER, SELFPAY | PROVIDERS: PCP Family Medicine; Visit Provider Internal Medicine Pulmonary Disease | DX: J44.9 Chronic obstructive pulmonary disease, unspecified (principal); J98.4 Other disorders of lung; G47.33 Obstructive sleep apnea (adult) (pediatric); G93.3 Postviral and related fatigue syndromes; Z87.891 Personal history of nicotine dependence; E78.5 Hyperlipidemia, unspecified | CPT/HCPCS: 99214 ==

== ENCOUNTER → 2021-09-30 08:11 | Outpatient (BNVA) | payer MEDICARE, OTHER, SELFPAY | PROVIDERS: PCP Family Medicine; Visit Provider Internal Medicine Cardiovascular Disease | DX: R00.1 Bradycardia, unspecified (principal); Z98.890 Other specified postprocedural states; Z86.79 Personal history of other diseases of the circulatory system; Z95.1 Presence of aortocoronary bypass graft; E78.5 Hyperlipidemia, unspecified; G62.9 Polyneuropathy, unspecified; J98.4 Other disorders of lung; G93.3 Postviral and related fatigue syndromes; Z87.891 Personal history of nicotine dependence; I25.2 Old myocardial infarction | CPT/HCPCS: 99213 ==

== ENCOUNTER 2021-10-10 13:49 | Outpatient (CLI) | payer MEDICARE, OTHER, SELFPAY ==
[2021-10-10 14:31] LABS: Basophils # 0.1 10^3/uL (0.0-0.1); Basophils % 0.9 %; Eosinophils # 0.2 10^3/uL (0.0-0.8); Eosinophils % 3.4 %; Hematocrit 42.1 % (42.0-52.0); Hemoglobin 14.7 g/dL (11.7-16.6); Lymphocytes # 1.2 10^3/uL (0.8-4.8); Lymphocytes % 17.7 %; Mean Corpuscular HGB Conc 34.9 g/dL (30.0-36.0); Mean Corpuscular Hemoglobin 32.7 pg (28.0-34.0); Mean Corpuscular Volume 93.8 fl (80-94); Mean Platelet Volume 8.8 fL (7.4-10.4); Monocytes # 0.6 10^3/uL (0.2-0.9); Monocytes % 8.2 %; Neutrophils # 4.61 10^3/uL (1.8-7.7); Neutrophils % 69.2 %; Nucleated Red Blood Cells % 0 %; Platelet Count 195 10^3/cmm (130-400); Red Blood Count 4.49 10^6/uL (4.1-5.3); Red Cell Distribution Width 11.9 % (12.1-15.1); White Blood Count 6.7 10^3/uL (4.0-10.0)
[2021-10-10 14:36] LABS: Alanine Aminotransferase 20 U/L (0-41); Albumin Level 4.2 g/dL (3.5-5.2); Alkaline Phosphatase 103 IU/L (40-130); Anion Gap 13.2 (5-19); Aspartate Amino Transferase 22 U/L (0-40); Blood Urea Nitrogen 16 mg/dL (8-23); Calcium 9.2 mg/dL (8.5-10.5); Carbon Dioxide 27 mmol/L (22-29); Chloride 101 mmol/L (98-107); Globulin 2.4 g/dL (1.3-4.6); Glucose 114 mg/dL (65-115); Osmolality Calculated 286 mOsm/kg (285-295); Potassium 4.2 mmol/L (3.5-5.1); Sodium 137 mmol/L (136-145); Total Bilirubin 0.4 mg/dL (0.15-1.2); Total Protein 6.6 g/dL (6.6-8.7)
[2021-10-10 14:38] LABS: Erythrocyte Sedimentation Rate 3 mm/hr (0-10)
== END 2021-10-10 13:50 | disposition home or self-care (01) ==
LOC: LAB 14:02
PROVIDERS: PCP Family Medicine; Visit Provider Internal Medicine
DX: M54.2 Cervicalgia (principal); M25.50 Pain in unspecified joint; R76.8 Other specified abnormal immunological findings in serum; Z79.899 Other long term (current) drug therapy
CPT/HCPCS: 80053; 85025; 85651; 86140

== ENCOUNTER → 2021-10-17 14:41 | Outpatient (BNVA) | payer MEDICARE, OTHER, SELFPAY | PROVIDERS: PCP Family Medicine; Visit Provider Internal Medicine | DX: M79.643 Pain in unspecified hand (principal); R76.8 Other specified abnormal immunological findings in serum | CPT/HCPCS: 99214 ==

== ENCOUNTER 2021-10-21 06:00 | Outpatient (RCR) | payer MEDICARE, OTHER, SELFPAY | END 2021-11-20 23:59 | disposition home or self-care (01) | LOC: SOT 06:00 | PROVIDERS: PCP Family Medicine; Referring Provider Internal Medicine; Visit Provider Internal Medicine | DX: M79.643 Pain in unspecified hand (principal) | CPT/HCPCS: 97018; 97110; 97140; 97166 ==

== ENCOUNTER 2021-11-21 06:00 | Outpatient (RCR) | payer MEDICARE, OTHER, SELFPAY | END 2021-12-21 23:59 | disposition home or self-care (01) | LOC: SOT 06:00 | PROVIDERS: PCP Family Medicine; Visit Provider Internal Medicine | DX: M79.643 Pain in unspecified hand (principal) | CPT/HCPCS: 97018; 97022; 97110; 97140 ==

== ENCOUNTER → 2021-12-02 13:08 | Outpatient (BNVA) | payer MEDICARE, OTHER, SELFPAY | PROVIDERS: PCP Family Medicine; Referring Provider Dermatology; Visit Provider Podiatrist Foot & Ankle Surgery | DX: G60.9 Hereditary and idiopathic neuropathy, unspecified (principal); B35.1 Tinea unguium; B35.3 Tinea pedis | CPT/HCPCS: 11721; 99204 ==

== ENCOUNTER → 2022-02-17 10:06 | Outpatient (BNVA) | payer MEDICARE, OTHER, SELFPAY | PROVIDERS: PCP Family Medicine; Visit Provider Internal Medicine Pulmonary Disease | DX: J44.9 Chronic obstructive pulmonary disease, unspecified (principal); J98.4 Other disorders of lung; G47.33 Obstructive sleep apnea (adult) (pediatric); Z87.891 Personal history of nicotine dependence; R06.02 Shortness of breath; G93.31 Postviral fatigue syndrome; U09.9 Post COVID-19 condition, unspecified; M25.50 Pain in unspecified joint; R76.8 Other specified abnormal immunological findings in serum; Z82.61 Family history of arthritis | CPT/HCPCS: 99214 ==

== ENCOUNTER → 2022-03-10 09:32 | Outpatient (BNVA) | payer MEDICARE, OTHER, SELFPAY | PROVIDERS: PCP Family Medicine; Visit Provider Podiatrist Foot & Ankle Surgery | DX: B35.1 Tinea unguium (principal); B35.3 Tinea pedis; G62.9 Polyneuropathy, unspecified | CPT/HCPCS: 11721 ==

== ENCOUNTER 2022-03-23 09:25 | Outpatient (CLI) | payer MEDICARE, OTHER, SELFPAY ==
[2022-03-23 10:11] LABS: Basophils # 0.1 10^3/uL (0.0-0.1); Eosinophils # 0.3 10^3/uL (0.0-0.8); Eosinophils % 4.6 %; Hematocrit 44.7 % (42.0-52.0); Hemoglobin 15.4 g/dL (11.7-16.6); Lymphocytes # 1.2 10^3/uL (0.8-4.8); Lymphocytes % 19.6 %; Mean Corpuscular HGB Conc 34.5 g/dL (30.0-36.0); Mean Corpuscular Hemoglobin 32.6 pg (28.0-34.0); Mean Corpuscular Volume 94.5 fl (80-94); Mean Platelet Volume 8.5 fL (7.4-10.4); Monocytes # 0.6 10^3/uL (0.2-0.9); Monocytes % 9.7 %; Neutrophils # 3.95 10^3/uL (1.8-7.7); Neutrophils % 64.6 %; Nucleated Red Blood Cells % 0 %; Platelet Count 188 10^3/cmm (130-400); Red Blood Count 4.73 10^6/uL (4.1-5.3); Red Cell Distribution Width 11.8 % (12.1-15.1); White Blood Count 6.1 10^3/uL (4.0-10.0)
[2022-03-23 10:12] LABS: Erythrocyte Sedimentation Rate 5 mm/hr (0-10)
[2022-03-23 10:44] LABS: Alanine Aminotransferase 21 U/L (0-41); Albumin Level 4.2 g/dL (3.5-5.2); Alkaline Phosphatase 116 U/L (40-130); Anion Gap 12.6 (5-19); Aspartate Amino Transferase 22 U/L (0-40); Blood Urea Nitrogen 14 mg/dL (8-23); Calcium 9.3 mg/dL (8.5-10.5); Carbon Dioxide 27 mmol/L (22-29); Chloride 102 mmol/L (98-107); Globulin 2.5 g/dL (1.3-4.6); Glucose 104 mg/dL (65-115); Osmolality Calculated 285 mOsm/kg (285-295); Potassium 4.6 mmol/L (3.5-5.1); Sodium 137 mmol/L (136-145); Total Bilirubin 0.5 mg/dL (0.15-1.2); Total Protein 6.7 g/dL (6.6-8.7)
== END 2022-03-23 09:26 | disposition home or self-care (01) ==
PROVIDERS: PCP Family Medicine; Visit Provider Internal Medicine
DX: G62.9 Polyneuropathy, unspecified (principal); M19.90 Unspecified osteoarthritis, unspecified site; M25.50 Pain in unspecified joint; R53.83 Other fatigue; R76.8 Other specified abnormal immunological findings in serum
CPT/HCPCS: 36415; 80053; 85025; 85651; 86140

== ENCOUNTER → 2022-03-27 13:14 | Outpatient (BNVA) | payer MEDICARE, OTHER, SELFPAY | PROVIDERS: PCP Family Medicine; Visit Provider Internal Medicine | DX: R76.8 Other specified abnormal immunological findings in serum (principal); M19.90 Unspecified osteoarthritis, unspecified site; M25.869 Other specified joint disorders, unspecified knee | CPT/HCPCS: 73562; 73630; 99213 ==

== ENCOUNTER → 2022-07-10 15:22 | Outpatient (BNVA) | payer MEDICARE, OTHER, SELFPAY | PROVIDERS: PCP Family Medicine; Visit Provider Internal Medicine | DX: M25.50 Pain in unspecified joint (principal); R76.8 Other specified abnormal immunological findings in serum; M19.90 Unspecified osteoarthritis, unspecified site | CPT/HCPCS: 36415; 80053; 84550; 85025; 85651; 86140; 99213 ==

== ENCOUNTER → 2022-08-14 10:07 | Outpatient (BNVA) | payer MEDICARE, OTHER, SELFPAY | PROVIDERS: PCP Family Medicine; Visit Provider Internal Medicine Pulmonary Disease | DX: J44.9 Chronic obstructive pulmonary disease, unspecified (principal); J98.4 Other disorders of lung; G47.33 Obstructive sleep apnea (adult) (pediatric); Z87.891 Personal history of nicotine dependence; G93.31 Postviral fatigue syndrome; U09.9 Post COVID-19 condition, unspecified; M35.89 Other specified systemic involvement of connective tissue; Z82.61 Family history of arthritis | CPT/HCPCS: 99214 ==

== ENCOUNTER → 2022-09-06 13:56 | Outpatient (BNVA) | payer MEDICARE, OTHER, SELFPAY | PROVIDERS: PCP Family Medicine; Visit Provider Dermatology | DX: L57.0 Actinic keratosis (principal); L73.8 Other specified follicular disorders; D36.11 Benign neoplasm of peripheral nerves and autonomic nervous system of face, head, and neck; L82.1 Other seborrheic keratosis; L72.8 Other follicular cysts of the skin and subcutaneous tissue; L82.0 Inflamed seborrheic keratosis; Z85.828 Personal history of other malignant neoplasm of skin | CPT/HCPCS: 17000; 17003; 17110; 99213 ==

== ENCOUNTER → 2022-10-02 14:15 | Outpatient (BNVA) | payer MEDICARE, OTHER, SELFPAY | PROVIDERS: PCP Family Medicine; Visit Provider Internal Medicine Cardiovascular Disease | DX: R00.1 Bradycardia, unspecified (principal); G47.33 Obstructive sleep apnea (adult) (pediatric); E78.5 Hyperlipidemia, unspecified; Z98.890 Other specified postprocedural states; Z86.79 Personal history of other diseases of the circulatory system; Z95.1 Presence of aortocoronary bypass graft; Z87.891 Personal history of nicotine dependence | CPT/HCPCS: 99214 ==

== ENCOUNTER 2022-10-09 08:09 | Outpatient (CLI) | payer MEDICARE, OTHER, SELFPAY ==
--- NOTE | 2022-10-09 08:30 | CT_ITS ---
WS: [id number] EXAMINATION: CT angio chest [id number] ORDER DATE: 10/09/2022 8:20 AM COMPARISON: 02/05/2020 HISTORY: thoracic aortic aneurysm repair CONTRAST: 100 mL of Omnipaque 350 IV TOTAL EXAM DLP: 1127.[address] scans at [facility] use at least one of these dose optimization techniques: automated e xposure control; mA and/or kV adjustment per patient size (includes targeted exams where dose is matc hed to clinical indication); or iterative reconstruction. TECHNIQUE: Coronal and sagittal 2-D and MIP reformations. TOTAL EXAM DLP: 1127.[address] scans at [facility] use at least one of these dose optimization techniques: automated e xposure control; mA and/or kV adjustment per patient size (includes targeted exams where dose is matc hed to clinical indication); or iterative reconstruction. FINDINGS: The central pulmonary arteries and peripheral pulmonary arteries fill normally with no evidence of intraluminal filling defects. No pulmonary embolic disease is noted. There is a small area of patchy groundglass infiltrate in the posterior segment of the right upper lo be. There are no nodules, masses or effusions. The heart size is enlarged with no pericardial effusion. There is coronary artery calcification. The pulmonary arterial system and thoracic aorta demonstrate no abnormalities or dilatations. There is no axillary or significant mediastinal adenopathy. The thyroid gland shows normal enhancement. The trachea bifurcates into the bronchi. Midline sternotomy sutures are seen. There are gallstones. The visualized liver, spleen, pancreas, adrenal glands and superior poles of the kidneys are not remarkable. Scattered colonic diverticulosis. 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 CT/CT angio chest [id number] IMPRESSION: No evidence of pulmonary emboli Small focal area of groundglass opacity in the posterior right upper lobe consi carlos early pneumonia versus chronic scarring from previous pulmonary insult. Cli nical correlation and follow-up as needed.
[2022-10-09 08:55] LABS: Blood Urea Nitrogen 17 mg/dL (8-23)
[2022-10-09] MEDS: iohexol 350 mg/mL 500 mL Btl (per mL) IV (09:09)
== END 2022-10-09 08:10 | disposition home or self-care (01) ==
PROVIDERS: PCP Family Medicine; Visit Provider Internal Medicine Cardiovascular Disease
DX: Z86.79 Personal history of other diseases of the circulatory system (principal); Z95.1 Presence of aortocoronary bypass graft
CPT/HCPCS: 71275; 82565; 84520; Q9967

== ENCOUNTER → 2022-11-15 14:35 | Outpatient (BNVA) | payer MEDICARE, OTHER, SELFPAY | PROVIDERS: PCP Family Medicine; Visit Provider Nurse Practitioner Family | DX: L57.0 Actinic keratosis (principal); L57.8 Other skin changes due to chronic exposure to nonionizing radiation; L81.4 Other melanin hyperpigmentation; D22.5 Melanocytic nevi of trunk; L85.3 Xerosis cutis; L73.8 Other specified follicular disorders; D36.11 Benign neoplasm of peripheral nerves and autonomic nervous system of face, head, and neck; L82.1 Other seborrheic keratosis; Z85.828 Personal history of other malignant neoplasm of skin | CPT/HCPCS: 17004; 99213 ==

== ENCOUNTER 2022-12-18 11:02 | Outpatient (CLI) | payer MEDICARE, OTHER, SELFPAY ==
[2022-12-18 11:25] LABS: Basophils # 0.1 10^3/uL (0.0-0.1); Eosinophils # 0.3 10^3/uL (0.0-0.8); Eosinophils % 4.1 %; Hematocrit 44.2 % (37-53); Lymphocytes # 1.1 10^3/uL (0.8-4.8); Lymphocytes % 15.9 %; Mean Corpuscular HGB Conc 34.4 g/dL (30-55); Mean Corpuscular Hemoglobin 32.2 pg (27-33); Mean Corpuscular Volume 93.6 fl (82-101); Mean Platelet Volume 8.3 fL (7.4-10.4); Monocytes # 0.6 10^3/uL (0.2-0.9); Monocytes % 8.7 %; Neutrophils # 4.77 10^3/uL (1.8-7.7); Neutrophils % 69.4 %; Nucleated Red Blood Cells % 0 %; Platelet Count 204 10^3/cmm (157-399); Red Blood Count 4.72 10^6/uL (3.85-5.65); Red Cell Distribution Width 11.9 % (12.1-15.1); White Blood Count 6.87 10^3/uL (3.29-11.43)
[2022-12-18 11:43] LABS: Alanine Aminotransferase 20 U/L (0-41); Albumin Level 4.1 g/dL (3.5-5.2); Alkaline Phosphatase 95 U/L (40-130); Anion Gap 13.2 (5-19); Aspartate Amino Transferase 20 U/L (0-40); Blood Urea Nitrogen 16 mg/dL (8-23); Calcium 9.1 mg/dL (8.5-10.5); Carbon Dioxide 25 mmol/L (22-29); Chloride 100 mmol/L (98-107); Erythrocyte Sedimentation Rate 5 mm/hr (0-10); Globulin 2.5 g/dL (1.3-4.6); Glucose 104 mg/dL (65-115); Osmolality Calculated 279 mOsm/kg (285-295); Potassium 4.2 mmol/L (3.5-5.1); Sodium 134 mmol/L (136-145); Total Bilirubin 0.5 mg/dL (0.15-1.2); Total Protein 6.6 g/dL (6.6-8.7)
== END 2022-12-18 11:03 | disposition home or self-care (01) ==
PROVIDERS: PCP Family Medicine; Visit Provider Internal Medicine
DX: M25.50 Pain in unspecified joint (principal); R76.8 Other specified abnormal immunological findings in serum
CPT/HCPCS: 80053; 85025; 85651; 86140

== ENCOUNTER → 2022-12-28 11:07 | Outpatient (BNVA) | payer MEDICARE, OTHER, SELFPAY | PROVIDERS: PCP Family Medicine; Visit Provider Internal Medicine | DX: R76.8 Other specified abnormal immunological findings in serum (principal); M19.90 Unspecified osteoarthritis, unspecified site | CPT/HCPCS: 99213 ==

== ENCOUNTER → 2023-01-30 09:05 | Outpatient (BNVA) | payer MEDICARE, OTHER, SELFPAY | PROVIDERS: PCP Family Medicine; Visit Provider Podiatrist Foot & Ankle Surgery | DX: M79.671 Pain in right foot (principal); M79.672 Pain in left foot; M20.21 Hallux rigidus, right foot; M20.22 Hallux rigidus, left foot; B35.1 Tinea unguium; G62.9 Polyneuropathy, unspecified | CPT/HCPCS: 73630; 99213 ==

== ENCOUNTER → 2023-02-15 07:46 | Outpatient (BNVA) | payer MEDICARE, OTHER, SELFPAY | PROVIDERS: PCP Family Medicine; Visit Provider Nurse Practitioner Family | DX: L57.0 Actinic keratosis (principal); D48.5 Neoplasm of uncertain behavior of skin; Z85.828 Personal history of other malignant neoplasm of skin; L57.8 Other skin changes due to chronic exposure to nonionizing radiation; D18.01 Hemangioma of skin and subcutaneous tissue | CPT/HCPCS: 11102; 17000; 17110; 99213 ==

== ENCOUNTER → 2023-03-26 11:59 | Outpatient (BNVA) | payer MEDICARE, OTHER, SELFPAY | PROVIDERS: PCP Family Medicine; Visit Provider Internal Medicine | DX: M79.643 Pain in unspecified hand (principal); G62.9 Polyneuropathy, unspecified; G56.20 Lesion of ulnar nerve, unspecified upper limb; M19.90 Unspecified osteoarthritis, unspecified site; R76.8 Other specified abnormal immunological findings in serum | CPT/HCPCS: 73120; 99214 ==

== ENCOUNTER → 2023-05-01 11:07 | Outpatient (BNVA) | payer MEDICARE, OTHER, SELFPAY | PROVIDERS: PCP Family Medicine; Visit Provider Specialist | DX: G56.11 Other lesions of median nerve, right upper limb; G56.22 Lesion of ulnar nerve, left upper limb | CPT/HCPCS: 95886; 95911 ==

== ENCOUNTER → 2023-05-16 13:08 | Outpatient (BNVA) | payer MEDICARE, OTHER, SELFPAY | PROVIDERS: PCP Family Medicine; Visit Provider Dermatology | DX: L82.1 Other seborrheic keratosis (principal); L30.0 Nummular dermatitis; D48.5 Neoplasm of uncertain behavior of skin; D23.5 Other benign neoplasm of skin of trunk; Z85.828 Personal history of other malignant neoplasm of skin | CPT/HCPCS: 11102; 99214 ==

== ENCOUNTER → 2023-05-17 08:07 | Outpatient (BNVA) | payer MEDICARE, OTHER, SELFPAY | PROVIDERS: PCP Family Medicine; Visit Provider Internal Medicine Pulmonary Disease | DX: J44.9 Chronic obstructive pulmonary disease, unspecified (principal); J98.4 Other disorders of lung; G47.33 Obstructive sleep apnea (adult) (pediatric); Z87.891 Personal history of nicotine dependence; Z86.16 Personal history of COVID-19; Z99.89 Dependence on other enabling machines and devices; R76.0 Raised antibody titer; L94.9 Localized connective tissue disorder, unspecified | CPT/HCPCS: 99214 ==

== ENCOUNTER → 2023-07-10 10:18 | Outpatient (BNVA) | payer MEDICARE, OTHER, SELFPAY | PROVIDERS: PCP Family Medicine; Visit Provider Nurse Practitioner Family | DX: Z95.1 Presence of aortocoronary bypass graft (principal) | CPT/HCPCS: 99213 ==

== ENCOUNTER → 2023-08-13 08:28 | Outpatient (BNVA) | payer MEDICARE, OTHER, SELFPAY | PROVIDERS: PCP Family Medicine; Visit Provider Nurse Practitioner Family | DX: L57.0 Actinic keratosis (principal); L82.1 Other seborrheic keratosis; L30.0 Nummular dermatitis; L81.4 Other melanin hyperpigmentation; L57.8 Other skin changes due to chronic exposure to nonionizing radiation; D22.39 Melanocytic nevi of other parts of face; D69.2 Other nonthrombocytopenic purpura; D36.11 Benign neoplasm of peripheral nerves and autonomic nervous system of face, head, and neck; L73.8 Other specified follicular disorders; D23.5 Other benign neoplasm of skin of trunk; Z85.828 Personal history of other malignant neoplasm of skin | CPT/HCPCS: 17000; 99214 ==

== ENCOUNTER → 2023-11-29 09:34 | Outpatient (BNVA) | payer MEDICARE, OTHER, SELFPAY | PROVIDERS: PCP Family Medicine; Visit Provider Internal Medicine Rheumatology | DX: M19.90 Unspecified osteoarthritis, unspecified site (principal); R76.8 Other specified abnormal immunological findings in serum; Z79.899 Other long term (current) drug therapy; Z11.1 Encounter for screening for respiratory tuberculosis; Z11.59 Encounter for screening for other viral diseases | CPT/HCPCS: 36415; 80076; 82565; 85025; 85651; 86140; 99214 ==

== ENCOUNTER 2024-01-09 13:18 | Outpatient (CLI) | payer MEDICARE, OTHER, SELFPAY ==
[2024-01-09 13:48] LABS: Erythrocyte Sedimentation Rate 5 mm/hr (0-10)
[2024-01-09 13:50] LABS: Basophils # 0.1 10^3/uL (0.0-0.1); Basophils % 0.9 %; Eosinophils # 0.2 10^3/uL (0.0-0.8); Eosinophils % 2.8 %; Hematocrit 43.6 % (37-53); Lymphocytes # 1.4 10^3/uL (0.8-4.8); Lymphocytes % 21.1 %; Mean Corpuscular HGB Conc 33.9 g/dL (30-55); Mean Corpuscular Hemoglobin 32.5 pg (27-33); Mean Corpuscular Volume 95.6 fl (82-101); Mean Platelet Volume 8.5 fL (7.4-10.4); Monocytes # 0.5 10^3/uL (0.2-0.9); Neutrophils # 4.34 10^3/uL (1.8-7.7); Neutrophils % 66.7 %; Nucleated Red Blood Cells % 0 %; Platelet Count 195 10^3/cmm (157-399); Red Blood Count 4.56 10^6/uL (3.85-5.65)
[2024-01-09 14:03] LABS: Alanine Aminotransferase 28 U/L (0-41); Albumin Level 4.2 g/dL (3.5-5.2); Alkaline Phosphatase 97 U/L (40-130); Aspartate Amino Transferase 26 U/L (0-40); Globulin 2.5 g/dL (1.3-4.6); Total Bilirubin 0.6 mg/dL (0.15-1.2); Total Protein 6.7 g/dL (6.6-8.7)
== END 2024-01-09 13:19 | disposition home or self-care (01) ==
PROVIDERS: PCP Family Medicine; Visit Provider Internal Medicine Rheumatology
DX: Z79.899 Other long term (current) drug therapy (principal)
CPT/HCPCS: 36415; 80076; 82565; 85025; 85651; 86140

== ENCOUNTER → 2024-01-10 10:41 | Outpatient (BNVA) | payer MEDICARE, OTHER, SELFPAY | PROVIDERS: PCP Family Medicine; Visit Provider Internal Medicine Cardiovascular Disease | DX: R94.31 Abnormal electrocardiogram [ECG] [EKG] (principal); I49.8 Other specified cardiac arrhythmias; R07.9 Chest pain, unspecified | CPT/HCPCS: 93005; 99214 ==

== ENCOUNTER → 2024-02-12 14:22 | Outpatient (BNVA) | payer MEDICARE, OTHER, SELFPAY | PROVIDERS: PCP Family Medicine; Visit Provider Nurse Practitioner Family | DX: D48.5 Neoplasm of uncertain behavior of skin (principal); L57.0 Actinic keratosis; D36.11 Benign neoplasm of peripheral nerves and autonomic nervous system of face, head, and neck; D23.5 Other benign neoplasm of skin of trunk; D18.01 Hemangioma of skin and subcutaneous tissue; Z85.828 Personal history of other malignant neoplasm of skin | CPT/HCPCS: 11102; 17000; 99213 ==

== ENCOUNTER → 2024-02-26 10:26 | Outpatient (BNVA) | payer MEDICARE, OTHER, SELFPAY | PROVIDERS: PCP Family Medicine; Visit Provider Dermatology | DX: L82.1 Other seborrheic keratosis (principal); D69.2 Other nonthrombocytopenic purpura; D04.5 Carcinoma in situ of skin of trunk; L57.0 Actinic keratosis; L82.0 Inflamed seborrheic keratosis | CPT/HCPCS: 17000; 17110; 17262; 99213 ==

== ENCOUNTER → 2024-04-29 14:56 | Outpatient (BNVA) | payer MEDICARE, OTHER, SELFPAY | PROVIDERS: PCP Family Medicine; Visit Provider Internal Medicine Rheumatology | DX: Z79.899 Other long term (current) drug therapy (principal); M06.00 Rheumatoid arthritis without rheumatoid factor, unspecified site; R76.8 Other specified abnormal immunological findings in serum; M19.90 Unspecified osteoarthritis, unspecified site | CPT/HCPCS: 36415; 80076; 82565; 85025; 85651; 86140; 99214 ==

== ENCOUNTER → 2024-05-19 15:06 | Outpatient (BNVA) | payer MEDICARE, OTHER, SELFPAY | PROVIDERS: PCP Family Medicine; Visit Provider Nurse Practitioner Family | DX: D36.11 Benign neoplasm of peripheral nerves and autonomic nervous system of face, head, and neck (principal); L82.1 Other seborrheic keratosis; L72.0 Epidermal cyst; Z08 Encounter for follow-up examination after completed treatment for malignant neoplasm; Z85.828 Personal history of other malignant neoplasm of skin; L57.0 Actinic keratosis | CPT/HCPCS: 17000; 99213 ==

== ENCOUNTER → 2024-07-11 08:31 | Outpatient (BNVA) | payer MEDICARE, OTHER, SELFPAY | PROVIDERS: PCP Family Medicine; Visit Provider Nurse Practitioner Family | DX: R06.02 Shortness of breath (principal); E78.5 Hyperlipidemia, unspecified; Z95.1 Presence of aortocoronary bypass graft; Z98.890 Other specified postprocedural states; Z86.79 Personal history of other diseases of the circulatory system; Z87.891 Personal history of nicotine dependence; I25.2 Old myocardial infarction | CPT/HCPCS: 99213 ==

== ENCOUNTER → 2024-08-05 13:39 | Outpatient (BNVA) | payer MEDICARE, OTHER, SELFPAY | PROVIDERS: PCP Family Medicine; Visit Provider Internal Medicine Rheumatology | DX: R76.8 Other specified abnormal immunological findings in serum (principal); M19.90 Unspecified osteoarthritis, unspecified site; Z79.899 Other long term (current) drug therapy | CPT/HCPCS: 80076; 82565; 85025; 85651; 86140; 99214 ==

== ENCOUNTER 2024-08-11 06:29 | Outpatient (CLI) | payer MEDICARE, OTHER, SELFPAY ==
--- NOTE | 2024-08-11 07:00 | USCV_ITS ---
Wilver Arteaga Age: 83 Gender: M : 1940 Exam Date: 08/11/2024 06:53 Ordering Phys: Raven Canela NP Technologist: Exam Location: [facility] Indication: HX CAD CABG BP: 125 / 80 HR: 57 Rhythm: Sinus Technical Quality: Adequate MEASUREMENTS (Male / Female) Normal Values 2D ECHO LV Diastolic Diameter PLAX 5.2 cm 4.2 - 5.9 / 3.9 - 5.3 cm IVS Diastolic Thickness 0.9 cm 0.6 - 1.0 / 0.6 - 0.9 cm IVS Systolic Thickness 1.4 cm LVPW Diastolic Thickness 1.0 cm 0.6 - 1.0 / 0.6 - 0.9 cm LVPW Systolic Thickness 1.7 cm LVOT Diameter 2.1 cm LV Ejection Fraction 2D Teich 51.9 % LV Ejection Fraction MOD 4C 43.1 % LV Ejection Fraction MOD 2C 41.0 % LV Ejection Fraction 2C AL 41.3 % LA Diameter 3.8 cm RA Systolic Volume 4C AL 63.3 ml RA Systolic Volume 4C MOD 60.7 ml Aorta at Sinotubular Diameter 3.6 cm M-MODE LA Ao Ratio MM 1.3 AV Cusp Separation MM 2.2 cm DOPPLER AV Peak Velocity 128.0 cm/s LVOT Peak Velocity 81.0 cm/s AV Area Cont Eq vti 2.6 cm squared AV Area Cont Eq pk 2.2 cm squared MV Peak Velocity 110.0 cm/s MV Area PHT 2.3 cm squared Mitral E to A Ratio 1.0 TV Peak Velocity 198.5 cm/s TR Peak Velocity 240.0 cm/s TR Peak Gradient 23.0 mmHg TV Peak E Velocity 87.0 cm/s PV Peak Velocity 101.0 cm/s FINDINGS Left Ventricle Normal LV size with diminished ejection fraction of 40-45%. Diffuse hypokinesis of the septum and the anteroseptal segments. Right Ventricle Possibly normal size and ejection fraction. Right Atrium Possibly of normal size Left Atrium Possibly of normal size Mitral Valve Thickened mitral valve. Moderate mitral valve regurgitation. Aortic Valve No gross abnormalities noted Tricuspid Valve Tricuspid valve not well visualized. Pulmonic Valve Trace pulmonary valve regurgitation. Pericardium No pericardial effusion. Aorta Normal aortic annulus size. IVC Inferior vena cava not visualized. CONCLUSIONS Normal LV size with diminished ejection fraction of 40-45%. Diffuse hypokinesis of the septum and the anteroseptal segments. (Echo contrast - Optison was used to delineate the endocardium and to estimate the LV ejection fraction) Thickened mitral valve. Moderate mitral valve regurgitation. Possibly normal RV size and ejection fraction There is no pericardial effusion. Technically difficult study because of the poor ultrasonic window. Dr Donna Dela Cruz MD [facility] (Electronically Signed) Final Date: 12 August 2024 19:30 S
[2024-08-11] MEDS: perflutren protein-a microsphr 0.22 mg/mL SDV 3 mL IV (07:32)
== END 2024-08-11 06:30 | disposition home or self-care (01) ==
PROVIDERS: PCP Family Medicine; Visit Provider Nurse Practitioner Family
DX: R06.02 Shortness of breath (principal); R93.1 Abnormal findings on diagnostic imaging of heart and coronary circulation; I34.0 Nonrheumatic mitral (valve) insufficiency
CPT/HCPCS: C8929

== ENCOUNTER 2024-08-22 09:07 | Outpatient (CLI) | payer MEDICARE, OTHER, SELFPAY ==
[2024-08-22 09:58] LABS: NT Pro B Type Natriuretic Pept 181 pg/mL (0-450)
== END 2024-08-22 09:08 | disposition home or self-care (01) ==
PROVIDERS: PCP Family Medicine; Visit Provider Nurse Practitioner Family
DX: R06.02 Shortness of breath (principal)
CPT/HCPCS: 36415; 83880

== ENCOUNTER 2024-09-09 06:59 | Outpatient (CLI) | payer MEDICARE, OTHER, SELFPAY ==
[2024-09-09 07:21] VITALS: BMI 27.1
--- NOTE | 2024-09-09 07:23 | ECG_ITS ---
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 The perfusion scan will be documented separately. DATA: Baseline heart rate was 58 beats per minute. Baseline blood pressure was 118/66 millimeters of mercury. Target heart rate was 137. Maximum heart rate achieved was 81. which was 59% of the predicted target heart rate. Maximum blood pressure was 131/73 millimeters of mercury. The reason for ending the test was completion of the protocol. The patient did not experience any symptoms. ELECTROCARDIOGRAM: BASELINE: Sinus bradycardia. Normal axis. Interventricular conduction delay, possible old anterior wall myocardial infarction secondary to poor R wave progression in the anterior leads EXERCISE: After Lexiscan injection, no ST-T changes suggestive of ischemic noted. No arrhythmia noted. CONCLUSION: Please note due to baseline abnormality of the EKG specificity and sensitivity of the EKG portion of LexiScan MIBI stress test will be low 1. EKG not suggestive of ischemia 2. Lexiscan injection unremarkable. 3. Perfusion scan will be documented separately. Electronically Signed On 09-23-2024 23:10:40 CDT by YVONNE GOODSON [email or web address]
--- NOTE | 2024-09-09 07:24 | NMCV_ITS ---
NM new perf SPECT r/s* [id number] Wilver Arteaga Age: 83 Gender: M : 1940 Exam Date: 09/09/2024 08:12 Ordering Phys: Raven Canela NP Technologist: WES Romo Exam Location: [facility] Indications: cp STRESS TEST [facility] IMAGE PROTOCOL Rest/Stress 1 Lexiscan Day Radiopharmaceutical Dose (mCi) Administration Site Administered by Rest: Tc-99m 10.7 IV Marleni Erickson, CABLE FERRY OPERATOR Sestamibi Stress:Tc-99m 32.7 IV Marleni Jonesgle, CABLE FERRY OPERATOR Sestamibi Rest: 09-Sep-2024 60 Discovery 630 Stress: 09-Sep-2024 30 Discovery 630 0.4mg Lexiscan. Images obtained in supine and prone position. SPECT RESULTS Technical Quality: Good Raw Data Analysis: Normal Image Corrections: No attenuation or motion correction applied Summed Stress Score: 11 Summed Rest Score: 13 Summed Difference Score: 0 PERFUSION FINDINGS Large areas of partially reversible perfusion defects seen in the apical, anterior and apical lateral berumen. This is consistent with large areas or prior infarct with small to medium sized areas of gina-infarct ischemia in LAD and left circumflex artery territories. FUNCTIONAL RESULTS (calculated via Gated SPECT) Stress Image LV EF (%): 43 Stress EDV (mL):138 TID: 1.02 Stress ESV (mL):79 FUNCTIONAL FINDINGS: LV systolic function is mildly reduced with EF of 43% IMPRESSIONS 1. Abnormal myocardial perfusion imaging with large areas of prior infarct seen in the LAD and left circumflex artery territories with small to medium sized area of gina-infarct ischemia in these territories. 2. LV systolic function is midly reduced with EF of 43% Corona Levine MD (Electronically Signed) Final Date: 12 Sep 2024 11:25 S
[2024-09-09] MEDS: regadenoson 0.4 Mg/5 ml Syringe IVP (08:41)
[2024-09-09 08:50] VITALS: BP 119/71; PULSE 67
== END 2024-09-09 07:00 | disposition home or self-care (01) ==
LOC: CDL 07:01
PROVIDERS: PCP Family Medicine; Visit Provider Nurse Practitioner Family
DX: R07.9 Chest pain, unspecified (principal); R93.1 Abnormal findings on diagnostic imaging of heart and coronary circulation
CPT/HCPCS: 36415; 78452; 93017; 96374; A9500; J2785

== ENCOUNTER → 2024-09-19 10:45 | Outpatient (BNVA) | payer MEDICARE, OTHER, SELFPAY | PROVIDERS: PCP Family Medicine; Visit Provider Nurse Practitioner Family | DX: E78.5 Hyperlipidemia, unspecified (principal); Z98.890 Other specified postprocedural states; Z79.02 Long term (current) use of antithrombotics/antiplatelets; Z95.1 Presence of aortocoronary bypass graft; Z87.891 Personal history of nicotine dependence; R53.83 Other fatigue; I50.20 Unspecified systolic (congestive) heart failure; Z86.79 Personal history of other diseases of the circulatory system | CPT/HCPCS: 99214 ==

== ENCOUNTER 2024-09-26 08:12 | Outpatient (CLI) | payer MEDICARE, OTHER, SELFPAY ==
[2024-09-26 08:49] LABS: Basophils # 0.1 10^3/uL (0.0-0.1); Basophils % 0.9 %; Eosinophils # 0.2 10^3/uL (0.0-0.8); Eosinophils % 3.5 %; Hematocrit 49.1 % (37-53); Lymphocytes # 1.6 10^3/uL (0.8-4.8); Lymphocytes % 24.2 %; Mean Corpuscular HGB Conc 33.6 g/dL (30-55); Mean Corpuscular Hemoglobin 32.9 pg (27-33); Mean Corpuscular Volume 97.8 fl (82-101); Mean Platelet Volume 8.6 fL (7.4-10.4); Monocytes # 0.6 10^3/uL (0.2-0.9); Monocytes % 9.3 %; Neutrophils # 4.16 10^3/uL (1.8-7.7); Neutrophils % 61.2 %; Nucleated Red Blood Cells % 0 %; Platelet Count 181 10^3/cmm (157-399); Red Blood Count 5.02 10^6/uL (3.85-5.65); Red Cell Distribution Width 12.5 % (12.1-15.1); White Blood Count 6.79 10^3/uL (3.29-11.43)
[2024-09-26 09:02] LABS: INR 0.92 (0.83-1.21)
[2024-09-26 09:08] LABS: Anion Gap 13.3 (5-19); Blood Urea Nitrogen 16 mg/dL (8-23); Calcium 9.3 mg/dL (8.5-10.5); Carbon Dioxide 23 mmol/L (22-29); Chloride 105 mmol/L (98-107); Glucose 94 mg/dL (65-115); Osmolality Calculated 285 mOsm/kg (285-295); Potassium 4.3 mmol/L (3.5-5.1); Sodium 137 mmol/L (136-145)
== END 2024-09-26 08:13 | disposition home or self-care (01) ==
LOC: LAB 08:15
PROVIDERS: PCP Family Medicine; Visit Provider Nurse Practitioner Family
DX: I50.20 Unspecified systolic (congestive) heart failure (principal); Z86.79 Personal history of other diseases of the circulatory system; Z98.890 Other specified postprocedural states
CPT/HCPCS: 36415; 80048; 85025; 85610; 86850; 86900

== ENCOUNTER 2024-10-01 05:47 | Outpatient (CLI) | payer MEDICARE, OTHER, SELFPAY ==
[2024-10-01] VITALS (52 sets, daily range): BP systolic 108–150; BP diastolic 54–74; PULSE 34–78; RESP 8–34; TEMP 36.2–36.6; O2SAT 88–96; BMI 27.1
[2024-10-01] MEDS: diphenhydrAMINE 50 mg Capsule PO (06:10)
[2024-10-01] MEDS: aspirin 325 mg Tablet PO (06:10)
--- NOTE | 2024-10-01 07:00 | P.HPUD_ITS ---
Surgery/Procedure H&P Update DATE OF PROCEDURE: October 01, 2024 DATE H&P PERFORMED: 09/19/24 H&P UPDATE INFORMATION: I have reviewed H&P completed within last 30 days, I have examined patient prior to procedure and No changes to prior documentation PREOP DIAGNOSIS: ASHD PRIMARY INDICATION FOR PROCEDURE: Previous coronary artery bypass surgery, shortness of breath, abnormal Myocardial perfusion imaging PLANNED PROCEDURE: Operation Date: 10/01/24 07:00 Proposed Procedures p Cardiac Catheterization - [facility] w/wo LV & Coros(Left) - Donna Dela Cruz MD PATIENT REASSESSED PRIOR TO SEDATION, WITH NO CHANGE NOTED: Yes PHYSICAL EXAM: alert, oriented x 3, clear to auscultation bilaterally and regular rate & rhythm AIRWAY EVAL/ANESTHESIA PLAN: normal airway, see other exam findings, ASA II, Monitored Anesthesia, Local Anesthesia, Risks, benefits & alternatives of sedation and/or procedure discussed and Patient agrees to continue as planned
--- NOTE | 2024-10-01 07:00 | XACV_ITS ---
Exam Room: 2 Ht: 180 cm Wt: 88 kg BSA: 2.12 m2 Gender: Male : 1940 Any Known Allergies: Other Exam Priority: Routine Procedure(s): Procedure Description: Diagnostic procedure Procedure Description: Left Heart Catheterization Procedure Description: Left ventriculography Procedure Description: Venous Graft Catheterization Procedure Description: Coronary Angiography Jose De Jesus STEPHENS; Diagnostic Cath Status: Elective Diagnostic Findings * The left main is a medium caliber vessel with minimal diffuse intimal irregularities. * The left left anterior descending artery appears to be flush occluded at the ostium. * The left circumflex artery is a medium caliber vessel which was found to have around 40% eccentric narrowing at the proximal segment, appears to be a calcified lesion. It gives off 2 OM branches. Minimal diffuse intimal irregularities are noted in the proximal segments of these arteries. No significant stenotic lesions were noted. * The right coronary artery is a medium caliber dominant vessel which was found to have mild diffuse intimal irregularities in the proximal in the midsegment. The artery appears to have a high bifurcation into the PDA and PLV branches. These branches were found to have minimal intimal irregularities.. * The saphenous venous graft to the LAD was selectively engaged. The shaft of the graft was found to be diffusely ectatic. But no obstructive lesions were noted. The distal anastomosis is to the distal LAD. Distal to anastomosis, the [place] artery was found to have minimal diffuse intimal irregularities. Retrograde filling was noted in the mid LAD and first diagonal branch. No significant lesions were noted in these vessels.. Conclusions 1. 83-year-old white male with history of atherosclerotic heart diseas , myocardial infarction, coronary artery bypass surgery, presented with complaints of easy fatigability and shortness of breath. His LV ejection fraction was around 40 to 45% by echocardiogram. He had a single-vessel coronary bypass surgery in 2019 at the [facility]. Apparently he never had any follow-up angiogram since then. His Myocardial perfusion imaging revealed large areas of fixed defects with some small to medium sized areas of reversible defects, suggesting myocardial scarring with ischemia in the distribution of the left descending artery/circumflex artery. In view of his ongoing symptoms, for further evaluation of the coronary status as well as the graft status, a cardiac catheterization was recommended. Patient underwent left heart catheterization with a left and right coronary angiogram , graft angiogram and LV angiogram today. The findings are as follows.. 2. Minimal diffuse intimal irregularities in the left main. Flush occlusion of the Left anterior descending artery at the ostium. 40% eccentric calcified lesion in the proximal circumflex artery. Mild diffuse disease in the other vessels. Patent venous graft to the LAD with a diffuse ectasia in the shaft of the graft. LV ejection fraction of 40%. Diffuse hypokinesia of the left-ventricle, more so of the apex. LVEDP of 9 mmHg. Diagnostic RX Recommendation: medical therapy and/or counseling LV EDP: 9 mmHg Ventriculography Ejection Fraction: 40.0 % Left Ventriculography Findings: * The LV gram was performed the [place] projection. There is diffuse hypokinesia of the left ventricle more so of the apical region. LV ejection fraction was around 40%. No filling defects are noted. The LV gram was of suboptimal quality. Pressures Phase:Rest AO : 121 / 65 ( 89 ) @ 8:22:00 AM 105 / 70 ( 88 ) @ 8:24:00 AM 127 / 21 ( 70 ) @ 8:35:00 AM LV : 122 / -11 / 9 @ 8:34:00 AM 110 / -11 / 8 @ 8:35:00 AM Clinical Evaluation EBL: 5mL-10mL Procedural Details Procedure Consent Obtained. Pre-Procedure Time Out. Identified patient by full name and date of as verbalized by the patient/guarantor. Does the consent match the physician's order: Yes. Accurate & Complete Informed Consent: Yes. Inpatient/Outpatient History & Physical on Chart: Yes. If H&P is completed, is and addenduem needed: No; If yes, is the addendum complete: N/A. Visualize and Verify Site with Patient/Guarantor: N/A. Relevant Radiology Images available: Yes. Pre-op teaching completed and patient verbalized understanding. The risks, benefits, and alternatives of sedation and/or procedure were discussed by physician. The patient agrees to continue. Procedure started. Physician arrived. Current Diagnosis : Chest Pain. [facility] Clinical Fraility Score: 3: Managing Well. 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 Chest Pain Symptom Assessment: Typical Angina Symptoms. Correct patient, site and procedure confirmed by cath team. Current diagnosis: Chest Pain. PERRLA. 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 Lungs clear x 5 lobes. IV Site on Arrival: 20 gauge in the right forearm. IV Fluids: 0.9% NaCl at KVO. 0 mL infused prior to labor economics teacher. Pre Procedural Pulses: bilateral dorsalis pedis was Doppled. Pre Procedural Pulses: bilateral posterior tibial was Doppled. Pre Procedural Pulses: bilateral radial was 2+. Oxygen started at 2liters/min via nasal canula. bilateral groins was prepped with chloroprep then draped in the usual sterile fashion. Baseline sample Acquired. HR: 61 BPM. Physician scrubbed in. Immediate Pre-Procedure Time Out. Correct Patient: Yes; Correct Procedure: Yes; Correct Site: Yes; Correct Patient Position: Yes; Correct Supplies: Yes; Dried Flammable Prep: Yes; Blood Products Available: N/A;. Lidocaine 1% infiltrated to the right groin. Arterial access obtained with micropuncture set. A 5 armenian JL4 catheter in over wire. Multiple views taken of left coronary artery. Catheter removed over the standard wire. A 5 armenian JR4 catheter in over wire. Multiple views taken of right coronary artery. SVG's to LAD visualized and patent. Catheter removed over the standard wire. A 5 armenian Angled Pig catheter in over wire. EDP Sample taken: LV 122/-12,9; HR: 58 BPM; SpO2: 98%. LV gram performed in BURL[place]ON @ 10 mL/second for a total of 30 mL. EDP Sample taken: LV 110/-12,8; HR: 71 BPM; SpO2: 99%. Pullback taken: LV Off; AO Off; Mean: , Peak to Peak: , SEP: ; HR: 62 BPM; SpO2: 99%. Catheter removed over the standard wire. Physician scrubbed out. A Suture was successful obtaining hemostatsis at the Right Femoral artery insertion site. Sheath(s) sutured into position with 2-0 silk and sterile 4x4's and Op-site applied over the site. No oozing or signs and symptoms of hematoma noted. Arterial sheath flushed and connected to tranducer and pressure bag with heparinized saline. Post Procedure: Pulses reassessed and unchanged. PERRLA. 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 No VTE prophylaxis required. Medication's Wasted: Lidocaine 1% = 10 mL. Medication's Wasted: Heparin = 2500 units. Medication's Wasted: Other = Fentanyl 50mcg Versed 1 mg. Total IV fluids: 250 mL. Vital chart was stopped. Post-op diagnosis: Non-obstructive CAD. Complications: None. Estimated blood loss: 5mL-10mL. Responsiveness - Normal response to verbal stimuli; alert and oriented, PERRLA. Airway - Unaffected, no intervention required; spontaneous ventilation. Circulation: W/N/L, pulses unchanged. Nausea/Vomiting: No. Procedure completed. Patient transferred by bed to 1st floor. Access Site Site: Right Femoral artery Sheath Size: 6 Fr Hemostasis Method: Suture Hemostasis Success: Successful Procedure Medications Start: 7:06 AM Stop: 7:06 AM Medication: Versed Amount: 1 mg Route: I.V. Start: 7:06 AM Stop: 7:06 AM Medication: Fentanyl Amount: 50 mcg Route: I.V. Start: 7:19 AM Stop: 7:19 AM Medication: Heparin Amount: 1500 units Route: I.V. Start: 7:34 AM Stop: 7:34 AM Medication: 0.9% Saline Amount: 250 ml/hr Route: I.V. bolus I, the attending physician, have reviewed and verified all procedure medications. Yes, all medications given per verbal order History/Risk Factors Hypertension: No Dyslipidemia: Yes Peripheral Arterial Disease (PAD): No Myocardial Infarction (SD): No Obesity: No Renal Disease: No Tobacco Use: Former Prior Interventions PCI: No CABG: Yes Valve Surgery: No Report Signatures Finalized by Dr Donna Dela Cruz MD [facility] on 10/01/2024 09:44 AM
--- NOTE | 2024-10-01 07:45 | PM.OP ---
Operative Report Date of procedure: October 01, 2024 Surgeon: Donna Dela Cruz MD Procedure: The patient underwent left heart catheterization with a left and right coronary angiogram and graft angiogram. He was found to have total occlusion of the LAD with minimal disease in the other vessels. The venous graft to the LAD was found to be widely patent. No significant stenotic lesions were noted. LV ejection fraction was around 37%. Severe diffuse hypokinesia of the anteroapical segment was noted
--- NOTE | 2024-10-01 08:08 | PC.NURSE ---
Patient transferred from geophysical laboratory chief to CSU at 0753 with a right femoral sheath and pressure bag.
[2024-10-01] MEDS: folic acid 1 mg Tablet PO (09:02)
[2024-10-01] MEDS: memantine 5 mg tablet 10 MG PO ×2 (10:48→17:46)
[2024-10-01] MEDS: donepezil 5 MG Tablet 10 MG PO (10:48)
[2024-10-01 11:11] LABS: Partial Thromboplastin Time 40.2 SECONDS (23.9-36.7)
[2024-10-01] MEDS: gabapentin 400 mg Capsule PO (13:40)
--- NOTE | 2024-10-01 18:33 | PC.NURSE ---
Dr. Dela Cruz is called asking about his discharge. Provider gave verbal orders to discharge with home medications and follow up with Tona Mishra NP in 1-2 weeks. Patient has been ambulating in the room.
== END 2024-10-01 18:54 | disposition home or self-care (01) ==
LOC: CCL 05:51 → CSU 09:04
PROVIDERS: PCP Family Medicine; Visit Provider Internal Medicine Cardiovascular Disease
DX: I25.10 Atherosclerotic heart disease of native coronary artery without angina pectoris (principal); I25.84 Coronary atherosclerosis due to calcified coronary lesion; E78.5 Hyperlipidemia, unspecified; Z87.891 Personal history of nicotine dependence; Z95.1 Presence of aortocoronary bypass graft; G47.33 Obstructive sleep apnea (adult) (pediatric); F03.90 Unspecified dementia, unspecified severity, without behavioral disturbance, psychotic disturbance, mood disturbance, and anxiety; Z82.49 Family history of ischemic heart disease and other diseases of the circulatory system
CPT/HCPCS: 36415; 85730; 93459; 99152; 99153; C1769; C1887; C1894; J1644; J2250; J3010; J3490; J7030; J9999; Q0163; Q9967

== ENCOUNTER → 2024-10-14 07:54 | Outpatient (BNVA) | payer MEDICARE, OTHER, SELFPAY | PROVIDERS: PCP Family Medicine; Visit Provider Nurse Practitioner Family | DX: L30.4 Erythema intertrigo (principal); D36.11 Benign neoplasm of peripheral nerves and autonomic nervous system of face, head, and neck; L57.8 Other skin changes due to chronic exposure to nonionizing radiation; Z08 Encounter for follow-up examination after completed treatment for malignant neoplasm; Z85.828 Personal history of other malignant neoplasm of skin; L57.0 Actinic keratosis | CPT/HCPCS: 17000; 99214 ==

== ENCOUNTER → 2024-10-20 14:09 | Outpatient (BNVA) | payer MEDICARE, OTHER, SELFPAY | PROVIDERS: PCP Family Medicine; Visit Provider Nurse Practitioner Family | DX: Z09 Encounter for follow-up examination after completed treatment for conditions other than malignant neoplasm (principal); Z87.891 Personal history of nicotine dependence | CPT/HCPCS: 36415; 80048; 85025; 99213 ==

== ENCOUNTER → 2024-12-18 09:11 | Outpatient (BNVA) | payer MEDICARE, OTHER, SELFPAY | PROVIDERS: PCP Family Medicine; Visit Provider Nurse Practitioner Family | DX: L82.1 Other seborrheic keratosis (principal); L81.4 Other melanin hyperpigmentation; L57.8 Other skin changes due to chronic exposure to nonionizing radiation; D22.5 Melanocytic nevi of trunk; Z08 Encounter for follow-up examination after completed treatment for malignant neoplasm; Z85.828 Personal history of other malignant neoplasm of skin; L82.0 Inflamed seborrheic keratosis; Z78.9 Other specified health status; R58 Hemorrhage, not elsewhere classified; L53.8 Other specified erythematous conditions; L29.89 Other pruritus | CPT/HCPCS: 17000; 17110; 99213 ==

== ENCOUNTER → 2025-03-10 10:57 | Outpatient (BNVA) | payer MEDICARE, OTHER, SELFPAY | PROVIDERS: PCP Family Medicine; Visit Provider Internal Medicine Cardiovascular Disease | DX: E78.5 Hyperlipidemia, unspecified (principal); Z98.890 Other specified postprocedural states; Z95.1 Presence of aortocoronary bypass graft; Z87.891 Personal history of nicotine dependence | CPT/HCPCS: 99214 ==

== ENCOUNTER → 2025-03-30 09:51 | Outpatient (BNVA) | payer MEDICARE, OTHER, SELFPAY | PROVIDERS: PCP Family Medicine; Visit Provider Nurse Practitioner Family | DX: L82.1 Other seborrheic keratosis (principal); L81.4 Other melanin hyperpigmentation; L57.8 Other skin changes due to chronic exposure to nonionizing radiation; Z08 Encounter for follow-up examination after completed treatment for malignant neoplasm; Z85.828 Personal history of other malignant neoplasm of skin; L56.8 Other specified acute skin changes due to ultraviolet radiation | CPT/HCPCS: 17000; 99213 ==

== ENCOUNTER → 2025-04-20 10:23 | Outpatient (BNVA) | payer MEDICARE, OTHER, SELFPAY | PROVIDERS: PCP Family Medicine; Visit Provider Internal Medicine Rheumatology | DX: R76.89 Other specified abnormal immunological findings in serum (principal); Z79.899 Other long term (current) drug therapy; M06.041 Rheumatoid arthritis without rheumatoid factor, right hand; M06.042 Rheumatoid arthritis without rheumatoid factor, left hand; Z71.85 Encounter for immunization safety counseling | CPT/HCPCS: 36415; 80076; 82306; 82565; 85025; 85651; 86140; 86480; 99214 ==